=== PATIENT | female | born 1950 | race Caucasian/White ===

== ENCOUNTER 2017-08-06 18:47 | Inpatient (IN) | payer MEDICARE, OTHER, SELFPAY ==
[2017-08-06 18:48] VITALS: BP 159/94; PULSE 78; RESP 18; TEMP 37.2; O2SAT 93; BMI 43.4
--- NOTE | 2017-08-06 19:30 | CT_ITS ---
STUDY: CT ABDOMEN AND PELVIS WITH CONTRAST REASON FOR EXAM: Female, 67 years old. LEFT SIDE PAIN, RIGHT FLANK PAIN, BLOOD IN STOOL WITH NAUSEA SINCE MONDAY, HX BOWEL RESECTION DUE TO COLON CA-CHEMO 2015, GB RADIATION DOSAGE (If Supplied By Facility): CTDIvol = ( 16.73 ) mGy, DLP = ( 1234.84 ) mGycm TECHNIQUE: Transaxial images were obtained from the dome of the diaphragm to the symphysis pubis with oral contrast. 100ML ml of Isovue 300 contrast was administered. Sagittal and coronal images were reconstructed. Individualized dose optimization techniques were used for this CT. COMPARISON: October 06, 2016 FINDINGS: The visualized lung bases are unremarkable. The visualized portions of the heart are within normal limits. There is decreased attenuation of the liver consistent with steatosis. There are surgical clips in the gallbladder fossa consistent with a prior cholecystectomy. Normal spleen. There is diffuse atrophy of the pancreas. The liver is enlarged. This is consistent for Hepatomegaly. Liver is 24 cm in size. Normal bilateral adrenal glands. Normal right kidney. Normal left kidney. Normal visualized stomach. Normal small intestine. There is diverticulosis, with thickening of the colon wall, and pericolonic inflammation changes consistent with acute diverticulitis. The appendix is visualized and appears normal. Rectosigmoid colon anastomosis. There is diffuse atherosclerotic calcification of the abdominal aorta, without a demonstrated aneurysm. Normal inferior vena cava. Normal retroperitoneum. Normal urinary bladder. Normal visualized uterus. Presacral inflammatory changes. Rectal wall thickening consistent for proctitis. Large umbilical hernia containing fat and nonobstructed small bowel. There are diffuse degenerative changes of the visualized lumbar spine. CT/Abdomen/Pelvis WITH Contrast IMPRESSION: Acute diverticulitis of the descending colon and sigmoid colon. There is a proctitis. Fatty liver. Large umbilical hernia containing fat and nonobstructed small bowel. Electronically Signed: Ronald Dietz MD at 22:35 EDT , Service support ,
[2017-08-06] MEDS: 0.9% Normal Saline 1,000 ML 1000 ML IV (20:14)
[2017-08-06 20:26] LABS: Absolute Lymphocyte Count 1.17 X10^3/ul (0.83-4.51); Absolute Neutrophil Count 5.2 X10^3/uL (2.0-7.7); Basophil# 0.02 X10^3/uL; Basophil% 0.3 % (0-1); Eosinophil# 0.17 X10^3/uL; Eosinophils% 2.3 % (0-5); Hematocrit 41.5 % (37-47); Hemoglobin 13.5 g/dl (12.0-15.0); Lymphocyte # 1.17 X10^3/ul (4.0); Lymphocyte % 15.9 % (19-41); Mean Corp Hgb Conc 32.5 g/gl (32-36); Mean Corpuscular Volume 95.4 fL (81-99); Mean Platelet Vol. 9.2 fl (6.2-12.0); Monocyte% 10.8 % (0-10); Neutrophil % 70.4 % (47-70); POSITIVE COUNT NO; POSITIVE DIFFERENTIAL NO; POSITIVE MORPHOLOGY NO; Platelet Count 200 K/mm3 (150-450); RBC Distribution Width CV 13.4 % (11.6-14.6); RBC Distribution Width SD 46.8 fl (35.1-43.9); Red Blood Count 4.35 M/mm3 (4.2-5.4); White Blood Count 7.4 K/mm3 (4.4-11.0)
[2017-08-06 20:34] LABS: BUN 14 mg/dL (7-18); BUN/Creat Ratio 20.1 RATIO (10-20); Calcium,Total 8.7 mg/dL (8.5-10.1); Chloride 109 mmol/L (98-107); EST Glomerular Filtration Rate 89 mL/min (>60); Est Glom Filt Rate - Afr Amer 108 mL/min (>60); Estimated Creatinine Clearance 41.76 ml/min; Glucose 87 mg/dL (74-106); Potassium 3.6 mmol/L (3.5-5.1); Sodium Level 144 mmol/L (136-145)
[2017-08-06 20:35] LABS: Anion Gap 7 (5-15); Prothrombin Time (Protime)PT. 13.1 SECONDS (11.7-14.9)
[2017-08-06 20:43] LABS: Lactic Acid 1.4 mmol/L (0.4-2.0)
[2017-08-06 21:21] VITALS: BP 165/74; PULSE 78; RESP 16; O2SAT 100
--- NOTE | 2017-08-06 23:02 | ED.DCSUM_ITS ---
- ER Visit Summary Date of Service: 08/06/17 Chief Complaint: Flank pain History of Present Illness: The patient is a 67 F who presents with flank pain. She has a history of rectal cancer. She underwent surgical intervention as well as chemotherapy and radiation therapy 2 years ago. She recently had a follow-up with radiation oncology. She states that on she developed abdominal cramping and had one episode of nonbilious bloody emesis as well as one episode of diarrhea which was not bloody. However she began to develop sharp left-sided abdominal and flank pain last night. She had bright red blood per rectum last night and again today. She states that this was garfield blood by itself and not just with a bowel movement. Currently her pain is mild unless she is moving around at which point it becomes more severe. She denies any fever. She is not anticoagulated. She denies prior history of GI bleed. Physical Examination: Afebrile vitals are stable Moist mucous membranes Heart regular rate and rhythm Lungs are clear Abdomen soft she does have tenderness in the left lower quadrant and left abdomen. Rectal examination showed a scant amount of bright red blood Alert Test Results: CBC BMP unremarkable INR 1.0 [address]. Hem[address]cult positive. [address] of the abdomen and pelvis shows findings consistent with acute diverticulitis and proctitis. Emergency Department Course and Treatment: Initially declined any pain medications. She was given IV Zosyn. On reevaluation her pain is slightly increased and she will be given IV morphine. The patient will be admitted for IV antibiotics. Treatment Plan: [] Disposition: Admit Impression: Diverticulitis Proctitis This note was generated with [employer] dictation software. It may contain incorrect words, spelling, and punctuation that were not noted in review of the chart prior to signing ED Disposition - Plan for ED Patient: Chief Complaint: GI Bleed Referrals: Aleksandra Martin PA [Primary Care Provider] -
--- NOTE | 2017-08-06 23:03 | PCM.HP.STD ---
Problem List (1) Acute diverticulitis Status: Acute (2) Morbid obesity Status: Chronic (3) HTN (hypertension) Status: Chronic Qualifiers: Hypertension type: essential hypertension Qualified Code(s): I10 - Essential (primary) hypertension (4) HLD (hyperlipidemia) Status: Chronic Qualifiers: Hyperlipidemia type: unspecified Qualified Code(s): E78.5 - Hyperlipidemia, unspecified (5) Adenocarcinoma of rectum Status: Chronic History of Present Illness Date of Admission: 08/06/17 Chief Complaint: Abdominal pain, diarrhea The patient is a 67 y/o F w/ PMHx: Morbid Obesity, HTN, HLD, Hx Adenocarcinoma Rectum, Hx UTIs who presents to the [facility] ED on 08/06/17 with diffuse abdominal cramping, nausea with emesis x 1, diarrhea x 1 this past , started to feel improved but pain transitioned to left flank pain and LLQ pain w/ BRBPR x 2 episodes without associated stooling. In the ED work-up included T 99, heart rate 78, BP 159/94, respiratory rate 18, 100% on room air, CBC with WBC 7.4, hemoglobin 13.5, platelet 200 without market left shift, normal coags, BMP not market appearing, CT A/P w/ acute diverticulitis of the descending colon and sigmoid colon, proctitis, fatty liver, large umbilical hernia containing fat and nonobstructed small bowel. In the ED patient administered Zosyn, morphine, Zofran, normal saline. Past Medical History Past Medical History (Chronic Problems): Chronic Problems (Last Updated 05/11/17 @ 13:12 by Paulette Carlin) Morbid obesity (Chronic) HTN (hypertension) (Chronic) HLD (hyperlipidemia) (Chronic) Adenocarcinoma of rectum (Chronic) Allergies No Known Allergies Allergy (Verified 08/06/17 18:48) Home Medications: Ambulatory Orders Medication Instructions Recorded Losartan Potassium [Cozaar] 50 mg PO DAILY 05/11/17 Simvastatin [Zocor] 20 mg PO QHS 05/11/17 Surgical History: - - Colon resection, BLTL, Cholecystectomy. 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 Denies: Chills, Fever, Weight Change HEENT: Denies: Head Aches, Sinus Congestion, Sinus Drainage Cardiovascular: Denies: Chest Pain, Palpitations Respiratory: Denies: Cough, Shortness of breath at rest, Sputum production Gastrointestinal: Reports: Abdominal Pain, Diarrhea, Nausea, Vomiting Genitourinary: Denies: Dysuria Musculoskeletal: Denies: Joint Pain, Joint Tenderness Skin: Denies: Rash, Wounds Neurological: Denies: Numbness, Tingling, Focal weakness Psychiatric: Reports: Anxiety, Depression. Denies: Homicidal Ideations, Suicidal Ideations Hematologic/ Lymphatic: Denies: Easy Bruising, Easy Bleeding VTE Information - Inpt Only VTE Present on Admission: No VTE Mechan Device Prophylaxis: SCD's VTE Pharm Prophylaxis ordered?: No Reason prophylaxis not ordered:: Medical Contraindication Patient Problems: Active and Suspected Problems (Last Updated 05/11/17 @ 13:12 by Paulette Carlin) Acute diverticulitis (Acute) Subjective: Seated upright in the ED bed, uncomfortable with movement attempts. Objective: Physical Examination: General: awake, alert, oriented x 3 and cooperative, seated upright in the ED bed, uncomfortable, worse with movement attempts. Skin: normal color, turgor, no icterus, cyanosis. HEENT: AT/NC, EOMI, PERRLA, dry MM, no carotid bruits or JVD noted. Lungs: CTA bilaterally, moderate effort, mild decrease BL bases, no rales, ronchi or wheezing. Heart: Regular rate and rhythm; no gallop, rub audible. Abdomen: soft, morbidly obese, notable TTP, primarily L sided, ND, hypoactive BS, difficult to assess HSM given pain and habitus. Extremities: no cyanosis, clubbing, or edema. Neurological: patient awake, alert, oriented x 3; cognitive function intact; pupils equally reactive to light and accomodation; cranial nerves II-XII grossly normal, moving all 4 extremities, no focal deficits, strength severely globally decreased secondary to acute presentation. Psychiatric: affect appears fatigued, no acute evidence of depressive or anxiety feelings. - Physical Exam Vital Signs Temp Pulse Resp BP Pulse Ox 99.0 F 78 16 165/74 H 100 08/06/17 18:48 08/06/17 21:21 08/06/17 21:21 08/06/17 21:21 08/06/17 21:21 Oxygen Delivery Method Room Air Weight: 230 lb Body Mass Index (BMI) 43.4 Microbiology Past 72 Hours 08/06/17 20:00 Stool Occult Blood (CANDE) - Final Stool Occult Blood Positive Laboratory Tests Past 24 Hrs 08/06/17 08/06/17 08/06/17 20:00 20:00 20:00 WBC 7.4 RBC 4.35 Hgb 13.5 Hct 41.5 MCV 95.4 MCH 31.0 MCHC 32.5 RDW 13.4 RDW Differential 46.8 H Plt Count 200 MPV 9.2 Immature Gran % (Auto) 0.300 Neut % (Auto) 70.4 H Lymph % (Auto) 15.9 L [place] % (Auto) 10.8 H Eos % (Auto) 2.3 Baso % (Auto) 0.3 Absolute Neuts (auto) 5.2 Absolute Lymphs (auto) 1.17 Total Counted Not Reportable PT INR Sodium 144 Potassium 3.6 Chloride 109 H Carbon Dioxide 28.0 Anion Gap 7 BUN 14 Creatinine 0.70 Estim Creat Clear Calc 41.76 Est GFR (MDRD) Af Amer 108 Est GFR (MDRD) Non-Af 89 BUN/Creatinine Ratio 20.1 H Glucose 87 Lactic Acid 1.4 Calcium 8.7 Blood Type Antibody Screen 08/06/17 08/06/17 20:00 20:00 WBC RBC Hgb Hct MCV MCH MCHC RDW RDW Differential Plt Count MPV Immature Gran % (Auto) Neut % (Auto) Lymph % (Auto) [place] % (Auto) Eos % (Auto) Baso % (Auto) Absolute Neuts (auto) Absolute Lymphs (auto) Total Counted PT 13.1 INR 1.0 Sodium Potassium Chloride Carbon Dioxide Anion Gap BUN Creatinine Estim Creat Clear Calc Est GFR (MDRD) Af Amer Est GFR (MDRD) Non-Af BUN/Creatinine Ratio Glucose Lactic Acid Calcium Blood Type A POSITIVE Antibody Screen NEGATIVE Assessment/Plan Active and Suspected Problems (Last Updated 05/11/17 @ 13:12 by Paulette Carlin) Acute diverticulitis (Acute) The patient is a 67 y/o F w/ PMHx: Morbid Obesity, HTN, HLD, Hx Adenocarcinoma Rectum, Hx UTIs who presents to the [facility] ED on 08/06/17 with diffuse abdominal cramping, nausea with emesis x 1, diarrhea x 1 this past , started to feel improved but pain transitioned to left flank pain and LLQ pain w/ BRBPR x 2 episodes without associated stooling. (1) Acute Descending and Sigmoid Diverticulitis and Acute Proctitis w/ Rectal Bleeding Associated: CT A/P w/ evidence of acute diverticulitis of the descending and sigmoid colon. Admission CBC w/ WBC 7.4 w/o marked appearing L shift, Tmax 99 in the ED. Will admit to [facility], maintain on hydration, monitor I&Os, maintain NPO status w/ bowel rest, treat with zosyn regimen, famotidine, anti-emetics, pain regimen PRN. Consider diet advancement to clears in AM if clinically improved. Monitor Hgb given + guiac w/ acute diverticulitis and proctitis. (2) Hx Adenocarcinoma Rectum: Following w/ Dr. Long, s/p tumor resection, s/p chemotherapy and radiation ~ 2 years prior, follow-up with Rad/Onc this past week, stable. Notes upcoming visit this week, routine follow-up with Hem/Onc team. (3) Hypertension: Continue home regimen including losartan, PRN hydralazine. (4) Hyperlipidemia: Continue home statin regimen. (5) Morbid Obesity: Weight loss and lifestyle changes encouraged, nutrition consulted. (6) DVT Prophylaxis: SCDs, defer chemoprophylaxis given bleeding w/ acute diverticulitis presentation. Code Visit Inpatient E&M: 00989 Init Hosp L3
[2017-08-06] MEDS: Ondansetron 4 MG/2 ML Vial IV (23:07)
[2017-08-06] MEDS: Morphine 4 MG/ML Syringe IV (23:08)
[2017-08-06 23:14] VITALS: BP 154/82; PULSE 76; RESP 18; TEMP 36.7; O2SAT 94
[2017-08-06 23:15] VITALS: BP 154/82; PULSE 76; RESP 18; O2SAT 94
--- NOTE | 2017-08-06 23:17 | HP.PCM_ITS ---
Problem List (1) Acute diverticulitis Status: Acute (2) Morbid obesity Status: Chronic (3) HTN (hypertension) Status: Chronic Qualifiers: Hypertension type: essential hypertension Qualified Code(s): I10 - Essential (primary) hypertension (4) HLD (hyperlipidemia) Status: Chronic Qualifiers: Hyperlipidemia type: unspecified Qualified Code(s): E78.5 - Hyperlipidemia , unspecified (5) Adenocarcinoma of rectum Status: Chronic History of Present Illness Date of Admission: 08/06/17 Chief Complaint: Abdominal pain, diarrhea The patient is a 67 y/o F w/ PMHx: Morbid Obesity, HTN, HLD, Hx Adenocarcinoma Rectum, Hx UTIs who presents to the [facility] ED on 08/06/17 with diffuse abdominal cramping, nausea with emesis x 1, diarrhea x 1 this past , started to feel improved but pain transitioned to left flank pain and LLQ pain w/ BRBPR x 2 episodes without associated stooling. In the ED work-up included T 99, heart rate 78, BP 159/94, respiratory rate 18, 100% on room air, CBC with WBC 7.4, hemoglobin 13.5, platelet 200 without market left shift, normal coags, BMP not market appearing, CT A/P w/ acute diverticulitis of the descending colon and sigmoid colon, proctitis, fatty liver, large umbilical hernia containing fat and nonobstructed small bowel. In the ED patient administered Zosyn, morphine, Zofran, normal saline. Past Medical History Past Medical History (Chronic Problems): Chronic Problems (Last Updated 05/11/17 @ 13:12 by Paulette Carlin) Morbid obesity (Chronic) HTN (hypertension) (Chronic) HLD (hyperlipidemia) (Chronic) Adenocarcinoma of rectum (Chronic) Allergies No Known Allergies Allergy (Verified 08/06/17 18:48) Home Medications: Ambulatory Orders Medication Instructions Recorded Losartan Potassium [Cozaar] 50 mg PO DAILY 05/11/17 Simvastatin [Zocor] 20 mg PO QHS 05/11/17 Surgical History: - - Colon resection, BLTL, Cholecystectomy. Psychiatric History: No pertinent psych hx HEALTH SERVICES RN History: No pertinent HEALTH SERVICES RN history Lives: Spouse/ Significant Other Smoking Status: Never smoker Tobacco Use: Non-smoker Alcohol: Rare Drugs: None - *Family History Maternal History Items: Diabetes, Heart Disease, Stroke Paternal History Items: Stroke Review of Systems Constitutional: Reports: Anorexia, Malaise, Weakness, Fatigue. Denies: Chills, Fever, Weight Change HEENT: Denies: Head Aches, Sinus Congestion, Sinus Drainage Cardiovascular: Denies: Chest Pain, Palpitations Respiratory: Denies: Cough, Shortness of breath at rest, Sputum production Gastrointestinal: Reports: Abdominal Pain, Diarrhea, Nausea, Vomiting Genitourinary: Denies: Dysuria Musculoskeletal: Denies: Joint Pain, Joint Tenderness Skin: Denies: Rash, Wounds Neurological: Denies: Numbness, Tingling, Focal weakness Psychiatric: Reports: Anxiety, Depression. Denies: Homicidal Ideations, Suicidal Ideations Hematologic/ Lymphatic: Denies: Easy Bruising, Easy Bleeding VTE Information - Inpt Only VTE Present on Admission: No VTE Mechan Device Prophylaxis: SCD's VTE Pharm Prophylaxis ordered?: No Reason prophylaxis not ordered:: Medical Contraindication Patient Problems: Active and Suspected Problems (Last Updated 05/11/17 @ 13:12 by Paulette Carlin) Acute diverticulitis (Acute) Subjective: Seated upright in the ED bed, uncomfortable with movement attempts. Objective: Physical Examination: General: awake, alert, oriented x 3 and cooperative, seated upright in the ED bed, uncomfortable, worse with movement attempts. Skin: normal color, turgor, no icterus, cyanosis. HEENT: AT/NC, EOMI, PERRLA, dry MM, no carotid bruits or JVD noted. Lungs: CTA bilaterally, moderate effort, mild decrease BL bases, no rales, ronchi or wheezing. Heart: Regular rate and rhythm; no gallop, rub audible. Abdomen: soft, morbidly obese, notable TTP, primarily L sided, ND, hypoactive BS , difficult to assess HSM given pain and habitus. Extremities: no cyanosis, clubbing, or edema. Neurological: patient awake, alert, oriented x 3; cognitive function intact; pupils equally reactive to light and accomodation; cranial nerves II-XII grossly normal, moving all 4 extremities, no focal deficits, strength severely globally decreased secondary to acute presentation. Psychiatric: affect appears fatigued, no acute evidence of depressive or anxiety feelings. - Physical Exam Vital Signs Temp Pulse Resp BP Pulse Ox 99.0 F 78 16 165/74 H 100 08/06/17 18:48 08/06/17 21:21 08/06/17 21:21 08/06/17 21:21 08/06/17 21:21 Oxygen Delivery Method Room Air Weight: 230 lb Body Mass Index (BMI) 43.4 Microbiology Past 72 Hours 08/06/17 20:00 Stool Occult Blood (CANDE) - Final Stool Occult Blood Positive Laboratory Tests Past 24 Hrs 08/06/17 08/06/17 08/06/17 20:00 20:00 20:00 WBC 7.4 RBC 4.35 Hgb 13.5 Hct 41.5 MCV 95.4 MCH 31.0 MCHC 32.5 RDW 13.4 RDW Differential 46.8 H Plt Count 200 MPV 9.2 Immature Gran % (Auto) 0.300 Neut % (Auto) 70.4 H Lymph % (Auto) 15.9 L [place] % (Auto) 10.8 H Eos % (Auto) 2.3 Baso % (Auto) 0.3 Absolute Neuts (auto) 5.2 Absolute Lymphs (auto) 1.17 Total Counted Not Reportable PT INR Sodium 144 Potassium 3.6 Chloride 109 H Carbon Dioxide 28.0 Anion Gap 7 BUN 14 Creatinine 0.70 Estim Creat Clear Calc 41.76 Est GFR (MDRD) Af Amer 108 Est GFR (MDRD) Non-Af 89 BUN/Creatinine Ratio 20.1 H Glucose 87 Lactic Acid 1.4 Calcium 8.7 Blood Type Antibody Screen 08/06/17 08/06/17 20:00 20:00 WBC RBC Hgb Hct MCV MCH MCHC RDW RDW Differential Plt Count MPV Immature Gran % (Auto) Neut % (Auto) Lymph % (Auto) [place] % (Auto) Eos % (Auto) Baso % (Auto) Absolute Neuts (auto) Absolute Lymphs (auto) Total Counted PT 13.1 INR 1.0 Sodium Potassium Chloride Carbon Dioxide Anion Gap BUN Creatinine Estim Creat Clear Calc Est GFR (MDRD) Af Amer Est GFR (MDRD) Non-Af BUN/Creatinine Ratio Glucose Lactic Acid Calcium Blood Type A POSITIVE Antibody Screen NEGATIVE Assessment/Plan Active and Suspected Problems (Last Updated 05/11/17 @ 13:12 by Paulette Carlin) Acute diverticulitis (Acute) The patient is a 67 y/o F w/ PMHx: Morbid Obesity, HTN, HLD, Hx Adenocarcinoma Rectum, Hx UTIs who presents to the [facility] ED on 08/06/17 with diffuse abdominal cramping, nausea with emesis x 1, diarrhea x 1 this past , started to feel improved but pain transitioned to left flank pain and LLQ pain w/ BRBPR x 2 episodes without associated stooling. (1) Acute Descending and Sigmoid Diverticulitis and Acute Proctitis w/ Rectal Bleeding Associated: CT A/P w/ evidence of acute diverticulitis of the descending and sigmoid colon. Admission CBC w/ WBC 7.4 w/o marked appearing L shift, Tmax 99 in the ED. Will admit to MS, maintain on hydration, monitor I&Os , maintain NPO status w/ bowel rest, treat with zosyn regimen, famotidine, anti- emetics, pain regimen PRN. Consider diet advancement to clears in AM if clinically improved. Monitor Hgb given + guiac w/ acute diverticulitis and proctitis. (2) Hx Adenocarcinoma Rectum: Following w/ Dr. Long, s/p tumor resection, s/p chemotherapy and radiation ~ 2 years prior, follow-up with Rad/Onc this past week, stable. Notes upcoming visit this week, routine follow-up with Hem/Onc team. (3) Hypertension: Continue home regimen including losartan, PRN hydralazine. (4) Hyperlipidemia: Continue home statin regimen. (5) Morbid Obesity: Weight loss and lifestyle changes encouraged, nutrition consulted. (6) DVT Prophylaxis: SCDs, defer chemoprophylaxis given bleeding w/ acute diverticulitis presentation. Code Visit Inpatient E&M: 51457 Init Hosp L3
[2017-08-06 23:49] VITALS: BMI 44.4
[2017-08-07] VITALS (9 sets, daily range): BP systolic 103–133; BP diastolic 60–71; PULSE 68–89; RESP 16–18; TEMP 36.7–37.3; O2SAT 92–96
[2017-08-07] MEDS: Atorvastatin Calcium 10 MG Tablet PO ×2 (00:48→20:52)
[2017-08-07] MEDS: Losartan Potassium 50 MG Tablet PO ×2 (00:49→20:52)
[2017-08-07 01:26] LABS: Magnesium 2.2 mg/dL (1.6-2.6)
[2017-08-07] MEDS: 0.9% Normal Saline 1,000 ML 125 ML IV ×3 (01:46→17:37)
[2017-08-07] MEDS: Morphine 2 MG/ML Syringe IV (05:53)
[2017-08-07] MEDS: Piperacil/Tazobactam 3.375 GM/50 ML ML IV ×3 (05:53→20:52)
[2017-08-07 06:09] LABS: Absolute Lymphocyte Count 0.92 X10^3/ul (0.83-4.51); Basophil# 0.03 X10^3/uL; Basophil% 0.4 % (0-1); Eosinophil# 0.15 X10^3/uL; Eosinophils% 1.9 % (0-5); Hematocrit 38.5 % (37-47); Hemoglobin 12.5 g/dl (12.0-15.0); Lymphocyte # 0.92 X10^3/ul (4.0); Lymphocyte % 11.8 % (19-41); Mean Corp Hgb Conc 32.5 g/gl (32-36); Mean Corpuscular Hgb 31.3 pg (27.0-32.0); Mean Corpuscular Volume 96.5 fL (81-99); Mean Platelet Vol. 9.3 fl (6.2-12.0); Monocyte# 0.73 X10^3/uL; Monocyte% 9.3 % (0-10); Neutrophil # 5.98 X10^3/uL (2.7-7.7); Neutrophil % 76.5 % (47-70); Platelet Count 187 K/mm3 (150-450); RBC Distribution Width CV 13.6 % (11.6-14.6); RBC Distribution Width SD 47.2 fl (35.1-43.9); Red Blood Count 3.99 M/mm3 (4.2-5.4); White Blood Count 7.8 K/mm3 (4.4-11.0)
[2017-08-07 06:28] LABS: Anion Gap 8 (5-15); BUN 12 mg/dL (7-18); Chloride 111 mmol/L (98-107); Creatinine, Serum 0.75 mg/dL (0.55-1.02); EST Glomerular Filtration Rate 82 mL/min (>60); Est Glom Filt Rate - Afr Amer 100 mL/min (>60); Estimated Creatinine Clearance 41.76 ml/min; Glucose 90 mg/dL (74-106); Potassium 3.8 mmol/L (3.5-5.1); Sodium Level 145 mmol/L (136-145)
[2017-08-07 06:32] LABS: POSITIVE COUNT NO; POSITIVE DIFFERENTIAL NO; POSITIVE MORPHOLOGY NO
[2017-08-07] MEDS: Famotidine 20 MG Tablet PO ×2 (09:45→20:50)
--- NOTE | 2017-08-07 10:03 | PCM.PROGNOTE ---
<Meg Cassidy - Last Filed: 08/07/17 10:16> Patient Problems: Active and Suspected Problems (Last Updated 05/11/17 @ 13:12 by Paulette Carlin) Acute diverticulitis (Acute) Subjective: Patient seen and examined. Complains of generalized abdominal pain which she states is improved after receiving morphine earlier. She denies fever, chills. Complains of nausea associated with abdominal pain. Denies emesis. No bowel movement. States she has not had a normal bowel movement since . She states she has had a few small episodes of diarrhea. Denies other complaints. - Physical Exam General: Alert, Oriented x3, Cooperative, No apparent distress HEENT: Atraumatic, PERRLA, EOMI, Normocephalic Oral: Dry Mucosa Neck: Supple, No JVD, Negative Carotid Bruits Lungs: Clear to auscultation, Normal air movement Cardiovascular: Regular rate, Regular Rhythm, Normal S1, Normal S2, No murmurs Abdomen: Bowel Sounds Present, Soft, Non-Distended, Obese, Tender - Generalized tenderness to light palpation Extremities: No clubbing, No cyanosis, No edema, Capillary Refill Less than 3 Seconds Skin: No rashes Musculoskeletal: No Tenderness to Palpation of Joints or Extremities Neurological: Cranial nerves II-XII grossly intact, Neuro grossly intact Psych/Mental Status: Normal Affect, Appropriate Vital Signs Temp Pulse Resp BP Pulse Ox 99.1 F 89 16 103/60 92 08/07/17 05:45 08/07/17 05:58 08/07/17 05:45 08/07/17 05:45 08/07/17 07:35 Oxygen Delivery Method Room Air Weight: 106.7 kg Body Mass Index (BMI) 44.4 Intake and Output for Last 24 Hours 08/05/17 08/06/17 08/07/17 23:59 23:59 23:59 Intake Total 842 / 842 Output Total 600 / 600 Balance 242 / 242 Laboratory Tests Past 24 Hrs 08/07/17 08/07/17 05:06 05:06 WBC 7.8 RBC 3.99 L Hgb 12.5 Hct 38.5 MCV 96.5 MCH 31.3 MCHC 32.5 RDW 13.6 RDW Differential 47.2 H Plt Count 187 MPV 9.3 Immature Gran % (Auto) 0.100 Neut % (Auto) 76.5 H Lymph % (Auto) 11.8 L [place] % (Auto) 9.3 Eos % (Auto) 1.9 Baso % (Auto) 0.4 Absolute Neuts (auto) 6.0 Absolute Lymphs (auto) 0.92 Total Counted Not Reportable Sodium 145 Potassium 3.8 Chloride 111 H Carbon Dioxide 26.0 Anion Gap 8 BUN 12 Creatinine 0.75 Estim Creat Clear Calc 41.76 Est GFR (MDRD) Af Amer 100 Est GFR (MDRD) Non-Af 82 BUN/Creatinine Ratio 16.0 Glucose 90 Calcium 8.0 L Medical Necessity - Tobacco Use Smoking Status: Never smoker Tobacco Use: Non-smoker Assessment/Plan Active and Suspected Problems (Last Updated 05/11/17 @ 13:12 by Paulette Carlin) Acute diverticulitis (Acute) Patient is a 67-year-old female admitted 08/06/17 due to abdominal pain, diarrhea. She has a past medical history of morbid obesity, hypertension, hyperlipidemia, history of adenocarcinoma rectum, history of UTIs. 1. Acute descending and sigmoid diverticulitis with associated rectal bleeding-CT of abdomen showed acute diverticulitis of the descending colon and sigmoid colon and proctitis. Fatty liver. Large umbilical hernia containing fat and nonobstructive small bowel. No leukocytosis. T-max 99.1. Continue IV fluids. Advance to clear liquids as tolerated. Continue IV Zosyn, IV famotidine. As needed antiemetics and pain regimen. Stool positive for occult blood. Hemoglobin stable. Patient denies further blood per rectum. 2. Hypertension-stable, continue home losartan regimen. 3. Hyperlipidemia-continue statin. 4. Morbid obesity-encouraged diet and lifestyle modifications. 5. Hx of adenocarcinoma rectum- Follows with Dr. Long. Status post tumor resection, chemotherapy and radiation approximately 2 years ago. Continue outpatient follow-up. Patient has a routine follow-up this week. DVT prophylaxis-SCDs, pharmacologic prophylaxis on hold given positive stool for occult blood. This patient was seen by MIRACLE Lomas under the supervision of Dr. Weathers. <Darrius Weathers - Last Filed: 08/07/17 13:49> - Physical Exam Vital Signs Temp Pulse Resp BP Pulse Ox 98.0 F 72 16 114/66 94 08/07/17 12:08/07/17 12:01 08/07/17 12:01 08/07/17 12:01 08/07/17 12:01 Oxygen Delivery Method Room Air Weight: 235 lb 3.732 oz Body Mass Index (BMI) 44.4 Intake and Output for Last 24 Hours 08/05/17 08/06/17 08/07/17 23:59 23:59 23:59 Intake Total 1511 / 1511 Output Total 600 / 600 Balance 911 / 911 Laboratory Tests Past 24 Hrs 08/07/17 08/07/17 05:06 05:06 WBC 7.8 RBC 3.99 L Hgb 12.5 Hct 38.5 MCV 96.5 MCH 31.3 MCHC 32.5 RDW 13.6 RDW Differential 47.2 H Plt Count 187 MPV 9.3 Immature Gran % (Auto) 0.100 Neut % (Auto) 76.5 H Lymph % (Auto) 11.8 L [place] % (Auto) 9.3 Eos % (Auto) 1.9 Baso % (Auto) 0.4 Absolute Neuts (auto) 6.0 Absolute Lymphs (auto) 0.92 Total Counted Not Reportable Sodium 145 Potassium 3.8 Chloride 111 H Carbon Dioxide 26.0 Anion Gap 8 BUN 12 Creatinine 0.75 Estim Creat Clear Calc 41.76 Est GFR (MDRD) Af Amer 100 Est GFR (MDRD) Non-Af 82 BUN/Creatinine Ratio 16.0 Glucose 90 Calcium 8.0 L Assessment/Plan Hospitalist note: I am seeing this patient in conjunction with Meg Cassidy. I independently seen and examined the patient. Progress note above, laboratory data and imaging studies reviewed and I agree with above treatment plan. Patient seen and examined. She reported improvement of her left-sided abdominal pain is almost gone. At this time, no more nausea vomiting. Denied fever or chills. Her vital signs are stable. - Physical Exam General: Alert, Oriented x3, Cooperative, No apparent distress. HEENT: Atraumatic, PERRLA, EOMI. Neck: Supple, No JVD, Negative Carotid Bruits, Trachea Midline, Thyroid Normal. Lungs: Clear to auscultation, Normal air movement, No rhonchi, No wheeze, No rales. Cardiovascular: Regular rate, Regular Rhythm, Normal S1, Normal S2, PMI Normal. Abdomen: Minimal left lower quadrant tenderness on deep palpation, bowel Sounds Present, Non-Distended, No Hepato-splenomegaly. Extremities: No clubbing, No cyanosis, No edema Skin: No rashes, No breakdown Neurological: Neuro grossly intact Vital Signs are stable. Assessment and plan: #1 acute sigmoid and descending colon diverticulitis: She is on IV Zosyn, IV fluids, IV morphine. Her vital signs are stable. She reported slight improvement of her symptoms. CT abdomen and pelvis reviewed. Plan to continue same treatment as above. #2 history of colon cancer: Status post surgery, was on chemotherapy and radiation. She has been stable, she is following up with oncology as outpatient. #3 other chronic medical problems: Stable, continue current medications as above. This note was generated with [employer] dictation software. It may contain incorrect words, spelling, and punctuation that were not noted in checking the note before signing. Code Visit Inpatient E&M: 40500 Subs Hosp L2
--- NOTE | 2017-08-07 10:57 | CASEMGMT ---
RN MICHELLE Face to Face with patient for initial transition planning/care coordination assessment. RN CM introduced self and role at [facility]. Patient lying in bed, alert and oriented. Patient willing to participate in assessment and is able to answer all questions appropriately. Care providers, pharmacy, and demographics verified. See link attached. Patient wishes to discharge home, denies need for home health at this time. Patient states she has no further needs or concerns at this time. CM to follow for discharge planning needs that may arise. Disposition Plan: Patient to discharge home with family support and follow-up plans in place.
[2017-08-07] MEDS: Temazepam 15 MG Capsule PO (20:53)
[2017-08-08] MEDS: 0.9% Normal Saline 1,000 ML 125 ML IV ×2 (01:28→10:16)
[2017-08-08 02:45] VITALS: BP 139/83; PULSE 72; RESP 18; TEMP 37.4; O2SAT 93
[2017-08-08] MEDS: Piperacil/Tazobactam 3.375 GM/50 ML ML IV (06:00)
[2017-08-08 06:25] LABS: Hematocrit 37.1 % (37-47); Hemoglobin 11.8 g/dl (12.0-15.0); Mean Corp Hgb Conc 31.8 g/gl (32-36); Mean Corpuscular Hgb 30.7 pg (27.0-32.0); Mean Corpuscular Volume 96.6 fL (81-99); Platelet Count 183 K/mm3 (150-450); RBC Distribution Width CV 13.6 % (11.6-14.6); RBC Distribution Width SD 48.2 fl (35.1-43.9); Red Blood Count 3.84 M/mm3 (4.2-5.4); White Blood Count 5.9 K/mm3 (4.4-11.0)
[2017-08-08 06:27] LABS: Scan Indicated on CBC? Y/N NO
[2017-08-08 07:53] VITALS: O2SAT 93
[2017-08-08 08:49] VITALS: BP 147/83; PULSE 73; RESP 18; TEMP 37.1; O2SAT 96
[2017-08-08] MEDS: Famotidine 20 MG Tablet PO (08:51)
--- NOTE | 2017-08-08 11:57 | PCM.DC ---
- Discharge Diagnoses Current Active Problems: Current Active and Chronic Problems (Last Updated 05/11/17 @ 13:12 by Paulette Carlin) Acute diverticulitis (Acute) Morbid obesity (Chronic) HTN (hypertension) (Chronic) HLD (hyperlipidemia) (Chronic) You will use the following diet at home:: Other - Low gastric stimulus Discharge Activity: Return to Normal Activity Call your doctor if you observe: Fever of 101 or Higher, Inability to have a bowel movement, Shortness of breath, Dizziness, Fainting spells, Swelling in the ankles Allergies/Adverse Reactions: Allergies No Known Allergies Allergy (Verified 08/06/17 18:48) Medications to take at Discharge Losartan Potassium [Cozaar] 50 mg PO QHS 05/11/17 Simvastatin [Zocor] 20 mg PO QHS 05/11/17 Ciprofloxacin [Cipro] 500 mg PO BID #14 tab 08/08/17 Metronidazole [Flagyl] 500 mg PO Q6H #28 tab 08/08/17 The following prescriptions were given: Ciprofloxacin [Cipro] 500 mg PO BID #14 tab Metronidazole [Flagyl] 500 mg PO Q6H #28 tab Primary Care Physician: Aleksandra Martin PA [Primary Care Provider] - Please follow up with your Primary Care Physician in: 3-5 Days Please Follow Up With: Nasir Long MD When: As scheduled this week Proposed Discharge Date: 08/08/17
--- NOTE | 2017-08-08 12:05 | DS.PCM_ITS ---
<Meg Cassidy - Last Filed: 08/08/17 12:05> Discharge Date and Diagnosis Date of Admission: 08/06/17 Date of Discharge: 08/08/17 - Primary Discharge Diagnosis Active and Suspected Problems (Last Updated 05/11/17 @ 13:12 by Paulette Carlin) 1. Acute descending and sigmoid diverticulitis - Secondary Discharge Diagnosis Chronic Problems (Last Updated 05/11/17 @ 13:12 by Paulette Carlin) Morbid obesity (Chronic) HTN (hypertension) (Chronic) HLD (hyperlipidemia) (Chronic) Adenocarcinoma of rectum (Chronic) Hospital Course and Treatment Imaging Results: Diagnostic Data Abdomen/Pelvis CT 08/06/17 19:30 IMPRESSION: Acute diverticulitis of the descending colon and sigmoid colon. There is a proctitis. Fatty liver. Large umbilical hernia containing fat and nonobstructed small bowel. Electronically Signed: Ronald Dietz MD at 22:35 EDT , Service support , Operations: None Procedures: None Summary of Care Provided: Patient is a 67-year-old female admitted 08/06/17 due to abdominal pain, diarrhea. She has a past medical history of morbid obesity, hypertension, hyperlipidemia, history of adenocarcinoma rectum, history of UTIs. 1. Acute descending and sigmoid diverticulitis with associated rectal bleeding- CT of abdomen showed acute diverticulitis of the descending colon and sigmoid colon and proctitis. Fatty liver. Large umbilical hernia containing fat and nonobstructive small bowel. No leukocytosis. Stool positive for occult blood. Hemoglobin stable. Patient denies further blood per rectum. Patient received IV Zosyn. She will be discharged on oral regimen of Flagyl and Cipro for 7 more days of oral antibiotic therapy. She will follow-up with primary care physician in 3-5 days. Recommend referral to gastroenterology by primary care physician if patient has further episodes of diverticulitis or rectal bleeding. 2. Hypertension-stable, continue home losartan regimen. 3. Hyperlipidemia-continue statin. 4. Morbid obesity-encouraged diet and lifestyle modifications. 5. Hx of adenocarcinoma rectum- Follows with Dr. Long. Status post tumor resection, chemotherapy and radiation approximately 2 years ago. Continue outpatient follow-up. Patient has a routine follow-up this week. General: Alert, Oriented x3, Cooperative, No apparent distress HEENT: Atraumatic, PERRLA, EOMI, Normocephalic Oral: Dry Mucosa Neck: Supple, No JVD, Negative Carotid Bruits Lungs: Clear to auscultation, Normal air movement Cardiovascular: Regular rate, Regular Rhythm, Normal S1, Normal S2, No murmurs Abdomen: Bowel Sounds Present, Soft, Non-Distended, Obese, Tender - Generalized tenderness to light palpation Extremities: No clubbing, No cyanosis, No edema, Capillary Refill Less than 3 Seconds Skin: No rashes Musculoskeletal: No Tenderness to Palpation of Joints or Extremities Neurological: Cranial nerves II-XII grossly intact, Neuro grossly intact Psych/Mental Status: Normal Affect, Appropriate Patient seen and examined prior to discharge. Physical assessment as noted above. Patient stable for discharge home with the follow-up recommendations as noted above. This patient was seen by MIRACLE Lomas under the supervision of Dr. Weathers. Discharge Diet: - - Low gastric stimulus Discharge Activity: Return to Normal Activity Call your doctor if you observe: Fever of 101 or Higher, Inability to have a bowel movement, Shortness of breath, Dizziness, Fainting spells, Swelling in the ankles Home Medications: Medications to take at Discharge Losartan Potassium [Cozaar] 50 mg PO QHS 05/11/17 Simvastatin [Zocor] 20 mg PO QHS 05/11/17 Ciprofloxacin [Cipro] 500 mg PO BID #14 tab 08/08/17 Metronidazole [Flagyl] 500 mg PO Q6H #28 tab 08/08/17 Ondansetron HCl [Zofran] 4 mg PO Q6H PRN PRN #20 tab 08/08/17 Following Prescrptions Were Given to Patient: Ondansetron HCl [Zofran] 4 mg PO Q6H PRN PRN #20 tab PRN Reason: Nausea Ciprofloxacin [Cipro] 500 mg PO BID #14 tab Metronidazole [Flagyl] 500 mg PO Q6H #28 tab Primary Care Physician: Aleksandra Martin PA [Primary Care Provider] - Please follow up with your Primary Care Physician in: 3-5 Days Please Follow Up With: Nasir Long MD When: As scheduled this week Disposition: Home Minutes spent on discharge:: 35 Patient Condition:: Stable Medical Necessity - Tobacco Use Smoking Status: Never smoker Tobacco Use: Non-smoker Meaningful Use Info Meaningful Use Diagnoses (Choose all that apply): None applicable <Darruis Weathers E - Last Filed: 08/09/17 14:37> Discharge Date and Diagnosis - Secondary Discharge Diagnosis Chronic Problems (Last Updated 05/11/17 @ 13:12 by Paulette Carlin) Morbid obesity (Chronic) HTN (hypertension) (Chronic) HLD (hyperlipidemia) (Chronic) Adenocarcinoma of rectum (Chronic) Hospital Course and Treatment Summary of Care Provided: Hospitalist note: Discharge summary above reviewed as well as physical examination and I agree with the above discharge plan. She was admitted because of left lower quadrant abdominal pain, found to have acute diverticulitis of the descending and sigmoid colon as well as proctitis. She was seen and examined on the day of discharge and appeared to be stable to be discharged home. She was treated with IV Zosyn, IV fluids, IV pain medications and antiemetics. With treatment, her abdominal pain improved and she tolerated clear liquid diet that was advanced to full liquid diet and she did well with it. She has history of colon cancer, adenocarcinoma and she has been following up with . She had surgery for cancer as well as chemotherapy and radiation to use ago. She has been following up with oncology as outpatient. Her routine blood work was unremarkable. Her vital signs remained stable throughout admission. Lactic acid was normal. Patient discharged home in a stable medical condition, discharged on ciprofloxacin and Flagyl to complete 14 days of treatment, recommended follow-up with PCP in 1 and follow-up with oncology as scheduled. . Minutes spent on discharge:: 26 Code Visit Inpatient E&M: 49683 Disch Hosp
[2017-08-08 14:16] VITALS: BP 142/68; PULSE 77; RESP 18; TEMP 37.3; O2SAT 93
--- NOTE | 2017-08-11 15:53 | CASEMGMT ---
PIPER MARTINEZ Discharge Follow-up Phone Call: ROGELIOJoe: Razia Strata: 3 Call Date: 08/11/17 Discharge Date: 08/08/17 Time of Call: [id number] Duration: 5 min Admitting Diagnosis: Acute Diverticulitis, Acute Proctitis Patient states the she is still having nausea and diarrhea. Patient was seen by her PCP today. Patient had no questions regarding discharge instructions or medications. Patient was able to fill prescriptions with no problems. No follow-up appts were scheduled prior to discharge.
== END 2017-08-08 15:37 | disposition home or self-care (01) | DRG 378 ==
LOC: ED 19:18 → MS3 23:32
PROVIDERS: Nurse Practitioner Family; Admitting Provider Family Medicine; Emergency Provider Emergency Medicine; Family Provider Physician Assistant; PCP Physician Assistant; Visit Provider Hospitalist
DX: K57.33 Diverticulitis of large intestine without perforation or abscess with bleeding (principal); Z68.41 Body mass index [BMI] 40.0-44.9, adult; E66.01 Morbid (severe) obesity due to excess calories; Z71.3 Dietary counseling and surveillance; I10 Essential (primary) hypertension; E78.5 Hyperlipidemia, unspecified; Z92.21 Personal history of antineoplastic chemotherapy; Z92.3 Personal history of irradiation; K62.89 Other specified diseases of anus and rectum; K42.9 Umbilical hernia without obstruction or gangrene; K76.0 Fatty (change of) liver, not elsewhere classified; Z85.048 Personal history of other malignant neoplasm of rectum, rectosigmoid junction, and anus
CPT/HCPCS: 36415; 74177; 80048; 82274; 83605; 83735; 85025; 85027; 85610; 86850; 86900; 97802; 99282; J7030; J7050; Q9967; A4216; J2405

== ENCOUNTER → 2017-08-17 10:52 | Outpatient (CLI) | payer MEDICARE, OTHER, SELFPAY ==
--- NOTE | 2017-08-17 11:13 | MRI_ITS ---
STUDY: MRI ABDOMEN WITH AND WITHOUT CONTRAST REASON FOR EXAM: Female, 67 years old. Hepatomegaly, abn labs, rectum ca- chemo and rad tx ended 2 yrs ago TECHNIQUE: Standardized fat and water weighted pulse sequences were obtained in all 3 orthogonal planes post contrast administration. 10 ml of Gadavist contrast material was administered intravenously for the contrast portion of the examination. COMPARISON: CT Abdomen/Pelvis Aug 06 2017 9:41pm FINDINGS: The visualized lung bases are unremarkable. The visualized portions of the heart are within normal limits. There is hepatomegaly with diffuse hepatic enlargement. There are surgical clips in the gallbladder fossa consistent with a prior cholecystectomy. Normal spleen. Normal pancreas. There is diffuse fatty infiltration of the liver. Normal bilateral adrenal glands. Normal right kidney. Normal left kidney. Normal visualized stomach. Normal small intestine. There are multiple colonic diverticula consistent with diverticulosis. There is non-visualization of the appendix. Stool throughout the colon. There is diffuse atherosclerotic calcification of the abdominal aorta, without a demonstrated aneurysm. Normal inferior vena cava. Normal retroperitoneum. There is a large ventral hernia containing fat. There are diffuse degenerative changes of the visualized lumbar spine. MRI/MRI Abd WITH and W/O Contrast IMPRESSION: Fatty liver and hepatomegaly There are multiple colonic diverticula consistent with diverticulosis. Constipation. There is a large ventral hernia containing fat. Electronically Signed: Ronald Dietz MD at 23:33 EDT , Service support ,
== END ==
PROVIDERS: Family Provider Physician Assistant; PCP Physician Assistant; Visit Provider Nurse Practitioner Family
DX: R16.0 Hepatomegaly, not elsewhere classified (principal); R79.89 Other specified abnormal findings of blood chemistry; C20 Malignant neoplasm of rectum
CPT/HCPCS: 74183; A9585

== ENCOUNTER 2018-01-01 20:21 | Observation (INO) | payer MEDICARE, OTHER, SELFPAY ==
[2018-01-01 20:25] VITALS: BP 137/76; PULSE 78; RESP 25; TEMP 36.9; O2SAT 96; BMI 43.7
--- NOTE | 2018-01-01 20:50 | EKG12_ITS ---
Test Reason : Blood Pressure : / mmHG Vent. Rate : 073 BPM Atrial Rate : 073 BPM P-R Int : 148 ms QRS Dur : 082 ms QT Int : 406 ms P-R-T Axes : 027 -23 030 degrees QTc Int : 447 ms Sinus rhythm with occasional Premature ventricular complexes Low voltage QRS Inferior infarct , age undetermined Abnormal ECG Confirmed by HECTOR TRAN, GABRIELLA ([id number]), continuity editor GILMA ROBERTO ([id number]) on 01/03/2018 1:49:51 PM Referred By: Davi Benz Confirmed By:GABRIELLA YOUNG MD
[2018-01-01] MEDS: 0.9% Normal Saline 1,000 ML 1000 ML IV (21:13)
[2018-01-01 21:21] VITALS: BP 148/92; PULSE 82; RESP 16; O2SAT 99
[2018-01-01 21:21] LABS: Absolute Lymphocyte Count 0.89 X10^3/ul (0.83-4.51); Absolute Neutrophil Count 5.3 X10^3/uL (2.0-7.7); Basophil# 0.02 X10^3/uL; Basophil% 0.3 % (0-1); Eosinophil# 0.11 X10^3/uL; Eosinophils% 1.6 % (0-5); Hematocrit 43.1 % (37-47); Hemoglobin 14.2 g/dl (12.0-15.0); Lymphocyte # 0.89 X10^3/ul (4.0); Lymphocyte % 12.7 % (19-41); Mean Corp Hgb Conc 32.9 g/gl (32-36); Mean Corpuscular Hgb 30.5 pg (27.0-32.0); Mean Corpuscular Volume 92.7 fL (81-99); Mean Platelet Vol. 9.1 fl (6.2-12.0); Monocyte# 0.71 X10^3/uL; Monocyte% 10.1 % (0-10); Neutrophil # 5.29 X10^3/uL (2.7-7.7); Neutrophil % 75.2 % (47-70); Platelet Count 176 K/mm3 (150-450); RBC Distribution Width CV 13.6 % (11.6-14.6); RBC Distribution Width SD 45.7 fl (35.1-43.9); Red Blood Count 4.65 M/mm3 (4.2-5.4)
[2018-01-01 21:23] LABS: POSITIVE COUNT NO; POSITIVE DIFFERENTIAL NO; POSITIVE MORPHOLOGY NO
[2018-01-01 21:29] VITALS: BP 140/74; BP 148/92; BP 158/84; PULSE 67; PULSE 72; PULSE 82
--- NOTE | 2018-01-01 21:31 | ED.RN ---
NO OLD EKG
[2018-01-01 21:36] LABS: Anion Gap 12 (5-15); BUN 25 mg/dL (7-18); BUN/Creat Ratio 23.1 RATIO (10-20); Calcium,Total 9.3 mg/dL (8.5-10.1); Chloride 105 mmol/L (98-107); Creatinine, Serum 1.08 mg/dL (0.55-1.02); EST Glomerular Filtration Rate 54 mL/min (>60); Est Glom Filt Rate - Afr Amer 65 mL/min (>60); Estimated Creatinine Clearance 40.53 ml/min; Glucose 111 mg/dL (74-106); Sodium Level 145 mmol/L (136-145)
--- NOTE | 2018-01-01 22:04 | PCM.HP.STD ---
Problem List (1) Syncope Status: Acute Qualifiers: Syncope type: unspecified Qualified Code(s): R55 - Syncope and collapse (2) History of rectal cancer Status: Chronic (3) HTN (hypertension) Status: Chronic Qualifiers: (4) HLD (hyperlipidemia) Status: Chronic Qualifiers: (5) Diarrhea Status: Chronic Qualifiers: History of Present Illness Date of Admission: 01/01/18 Chief Complaint: syncope The patient is a 67 year old female patient present to the hospital by squad with a chief complaint of passing out. She had been feeling dizzy earlier in the day. [place] and her grandson was about to show their dairy heifer. She sat down on a stump and then passed out. She was caught by someone on her way down from seated position so she did not have any trauma. There was no seizure activity. She admits to not having eaten earlier today and has had diarrhea for the past few days for which she took an Imodium earlier today. She denies chest pain or shortness of breath. No previous syncopal episodes and no reported cardiac history. She is 3 years post rectal carcinoma diagnosis and treatment. Past Medical History Past Medical History (Chronic Problems): Chronic Problems (Last Reviewed 08/21/17 @ 14:32 by Paulette Carlin) History of rectal cancer (Chronic) Morbid obesity (Chronic) HTN (hypertension) (Chronic) HLD (hyperlipidemia) (Chronic) Diarrhea (Chronic) Medical History: Medical History (Last Reviewed 08/21/17 @ 14:32 by Paulette Carlin) Chronic UTI N39.0 Hyperlipidemia E78.5 Hypertension I10 Allergies lisinopril Adverse Reaction (Verified 01/01/18 20:25) Other COUGH Home Medications: Ambulatory Orders Medication Instructions Recorded Losartan Potassium [Cozaar] 50 mg PO QHS 05/11/17 Simvastatin [Zocor] 20 mg PO QHS 05/11/17 Surgical History: Surgical History (Last Reviewed 08/21/17 @ 14:32 by Paulette Carlin) History of colon resection Z98.890, Z90.49 History of tubal ligation Z98.51 Hx of cholecystectomy Z98.890, Z90.49 Surgical History: - - Colon resection, BLTL, Cholecystectomy. Psychiatric History: No pertinent psych hx ADMISSIONS CONSULTANT History: No pertinent ADMISSIONS CONSULTANT history Smoking Status: Never smoker - *Family History Maternal Family History: Family History (Last Reviewed 08/21/17 @ 14:32 by Paulette Carlin) Mother Skin cancer Heart disease Diabetes CVA (cerebral vascular accident) Father CVA (cerebral vascular accident) History Items: Diabetes, Heart Disease, Stroke Paternal Family History: Family History (Last Reviewed 08/21/17 @ 14:32 by Paulette Carlin) Mother Skin cancer Heart disease Diabetes CVA (cerebral vascular accident) Father CVA (cerebral vascular accident) History Items: Stroke Review of Systems Constitutional: Denies: Chills, Fever, Weight Change HEENT: Denies: Head Aches, Sinus Congestion, Sinus Drainage Cardiovascular: Reports: Light Headedness, Syncope. Denies: Chest Pain, Palpitations Respiratory: Denies: Cough, Shortness of breath at rest, Sputum production Gastrointestinal: Reports: Diarrhea. Denies: Abdominal Pain, Nausea, Vomiting Genitourinary: Denies: Dysuria Musculoskeletal: Denies: Joint Pain, Joint Tenderness Skin: Denies: Rash, Wounds Neurological: Denies: Numbness, Tingling, Focal weakness Psychiatric: Denies: Anxiety, Depression, Homicidal Ideations, Suicidal Ideations Hematologic/ Lymphatic: Denies: Easy Bruising, Easy Bleeding VTE Information - Inpt Only VTE Present on Admission: No VTE Mechan Device Prophylaxis: None VTE Pharm Prophylaxis ordered?: Yes Patient Problems: Active and Suspected Problems (Last Reviewed 08/21/17 @ 14:32 by Paulette Carlin) Syncope (Acute) - Physical Exam General: Alert, Oriented x3, Cooperative HEENT: Atraumatic, Normocephalic Neck: Supple, Negative Carotid Bruits Lungs: Clear to auscultation, Normal air movement, No rhonchi, No wheeze, No rales Cardiovascular: Regular rate, Regular Rhythm, Normal S1, Normal S2, No murmurs Abdomen: Bowel Sounds Present, Soft, Non Tender Extremities: No edema, Capillary Refill Less than 3 Seconds Skin: No rashes, No breakdown Musculoskeletal: No Tenderness to Palpation of Joints or Extremities Neurological: Neuro grossly intact Psych/Mental Status: Normal Affect, Appropriate Vital Signs Temp Pulse Resp BP Pulse Ox 98.4 F 67 16 140/74 H 99 01/01/18 20:25 01/01/18 21:29 01/01/18 21:21 01/01/18 21:29 01/01/18 21:21 Oxygen Delivery Method Room Air Weight: 239 lb 3.225 oz Body Mass Index (BMI) 43.7 Laboratory Tests Past 24 Hrs 01/01/18 01/01/18 21:10 21:10 WBC 7.0 RBC 4.65 Hgb 14.2 Hct 43.1 MCV 92.7 MCH 30.5 MCHC 32.9 RDW 13.6 RDW Differential 45.7 H Plt Count 176 MPV 9.1 Immature Gran % (Auto) 0.100 Neut % (Auto) 75.2 H Lymph % (Auto) 12.7 L [place] % (Auto) 10.1 H Eos % (Auto) 1.6 Baso % (Auto) 0.3 Absolute Neuts (auto) 5.3 Absolute Lymphs (auto) 0.89 Total Counted Not Reportable Sodium 145 Potassium 4.0 Chloride 105 Carbon Dioxide 28.0 Anion Gap 12 BUN 25 H Creatinine 1.08 H Estim Creat Clear Calc 40.53 Est GFR (MDRD) Af Amer 65 Est GFR (MDRD) Non-Af 54 L BUN/Creatinine Ratio 23.1 H Glucose 111 H Calcium 9.3 Troponin I < 0.015 Assessment/Plan All Active Problems (Last Reviewed 08/21/17 @ 14:32 by Paulette Carlin) Elevated LFTs (Acute) Hepatomegaly (Acute) Syncope (Acute) Acute diverticulitis (Acute) Adenocarcinoma of rectum (Resolved) Assessment - syncopal episode Chronic Problems (Last Reviewed 08/21/17 @ 14:32 by Paulette Carlin) History of rectal cancer (Chronic) Morbid obesity (Chronic) HTN (hypertension) (Chronic) HLD (hyperlipidemia) (Chronic) Diarrhea (Chronic) Plan - admit to PCU for observation - continue conveyor monitor overnight - regular diet - cbc, bmp in am - if stable in AM would allow for observed walking and possibly dc home if continues to be symptom free. Code Visit OBSV E&M: 81710 Initial observation care L2
--- NOTE | 2018-01-01 22:09 | HP.PCM_ITS ---
Problem List (1) Syncope Status: Acute Qualifiers: Syncope type: unspecified Qualified Code(s): R55 - Syncope and collapse (2) History of rectal cancer Status: Chronic (3) HTN (hypertension) Status: Chronic Qualifiers: (4) HLD (hyperlipidemia) Status: Chronic Qualifiers: (5) Diarrhea Status: Chronic Qualifiers: History of Present Illness Date of Admission: 01/01/18 Chief Complaint: syncope The patient is a 67 year old female patient present to the hospital by squad with a chief complaint of passing out. She had been feeling dizzy earlier in the day. [place] and her grandson was about to show their dairy heifer. She sat down on a stump and then passed out. She was caught by someone on her way down from seated position so she did not have any trauma. There was no seizure activity. She admits to not having eaten earlier today and has had diarrhea for the past few days for which she took an Imodium earlier today. She denies chest pain or shortness of breath. No previous syncopal episodes and no reported cardiac history. She is 3 years post rectal carcinoma diagnosis and treatment. Past Medical History Past Medical History (Chronic Problems): Chronic Problems (Last Reviewed 08/21/17 @ 14:32 by Paulette Carlin) History of rectal cancer (Chronic) Morbid obesity (Chronic) HTN (hypertension) (Chronic) HLD (hyperlipidemia) (Chronic) Diarrhea (Chronic) Medical History: Medical History (Last Reviewed 08/21/17 @ 14:32 by Paulette Carlin) Chronic UTI N39.0 Hyperlipidemia E78.5 Hypertension I10 Allergies lisinopril Adverse Reaction (Verified 01/01/18 20:25) Other COUGH Home Medications: Ambulatory Orders Medication Instructions Recorded Losartan Potassium [Cozaar] 50 mg PO QHS 05/11/17 Simvastatin [Zocor] 20 mg PO QHS 05/11/17 Surgical History: Surgical History (Last Reviewed 08/21/17 @ 14:32 by Paulette Carlin) History of colon resection Z98.890, Z90.49 History of tubal ligation Z98.51 Hx of cholecystectomy Z98.890, Z90.49 Surgical History: - - Colon resection, BLTL, Cholecystectomy. 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 Smoking Status: Never smoker - *Family History Maternal Family History: Family History (Last Reviewed 08/21/17 @ 14:32 by Paulette Carlin) Mother Skin cancer Heart disease Diabetes CVA (cerebral vascular accident) Father CVA (cerebral vascular accident) History Items: Diabetes, Heart Disease, Stroke Paternal Family History: Family History (Last Reviewed 08/21/17 @ 14:32 by Paulette Carlin) Mother Skin cancer Heart disease Diabetes CVA (cerebral vascular accident) Father CVA (cerebral vascular accident) History Items: Stroke Review of Systems Constitutional: Denies: Chills, Fever, Weight Change HEENT: Denies: Head Aches, Sinus Congestion, Sinus Drainage Cardiovascular: Reports: Light Headedness, Syncope. Denies: Chest Pain, Palpitations Respiratory: Denies: Cough, Shortness of breath at rest, Sputum production Gastrointestinal: Reports: Diarrhea. Denies: Abdominal Pain, Nausea, Vomiting Genitourinary: Denies: Dysuria Musculoskeletal: Denies: Joint Pain, Joint Tenderness Skin: Denies: Rash, Wounds Neurological: Denies: Numbness, Tingling, Focal weakness Psychiatric: Denies: Anxiety, Depression, Homicidal Ideations, Suicidal Ideations Hematologic/ Lymphatic: Denies: Easy Bruising, Easy Bleeding VTE Information - Inpt Only VTE Present on Admission: No VTE Mechan Device Prophylaxis: None VTE Pharm Prophylaxis ordered?: Yes Patient Problems: Active and Suspected Problems (Last Reviewed 08/21/17 @ 14:32 by Paulette Carlin) Syncope (Acute) - Physical Exam General: Alert, Oriented x3, Cooperative HEENT: Atraumatic, Normocephalic Neck: Supple, Negative Carotid Bruits Lungs: Clear to auscultation, Normal air movement, No rhonchi, No wheeze, No rales Cardiovascular: Regular rate, Regular Rhythm, Normal S1, Normal S2, No murmurs Abdomen: Bowel Sounds Present, Soft, Non Tender Extremities: No edema, Capillary Refill Less than 3 Seconds Skin: No rashes, No breakdown Musculoskeletal: No Tenderness to Palpation of Joints or Extremities Neurological: Neuro grossly intact Psych/Mental Status: Normal Affect, Appropriate Vital Signs Temp Pulse Resp BP Pulse Ox 98.4 F 67 16 140/74 H 99 01/01/18 20:25 01/01/18 21:29 01/01/18 21:21 01/01/18 21:29 01/01/18 21:21 Oxygen Delivery Method Room Air Weight: 239 lb 3.225 oz Body Mass Index (BMI) 43.7 Laboratory Tests Past 24 Hrs 01/01/18 01/01/18 21:10 21:10 WBC 7.0 RBC 4.65 Hgb 14.2 Hct 43.1 MCV 92.7 MCH 30.5 MCHC 32.9 RDW 13.6 RDW Differential 45.7 H Plt Count 176 MPV 9.1 Immature Gran % (Auto) 0.100 Neut % (Auto) 75.2 H Lymph % (Auto) 12.7 L [place] % (Auto) 10.1 H Eos % (Auto) 1.6 Baso % (Auto) 0.3 Absolute Neuts (auto) 5.3 Absolute Lymphs (auto) 0.89 Total Counted Not Reportable Sodium 145 Potassium 4.0 Chloride 105 Carbon Dioxide 28.0 Anion Gap 12 BUN 25 H Creatinine 1.08 H Estim Creat Clear Calc 40.53 Est GFR (MDRD) Af Amer 65 Est GFR (MDRD) Non-Af 54 L BUN/Creatinine Ratio 23.1 H Glucose 111 H Calcium 9.3 Troponin I < 0.015 Assessment/Plan All Active Problems (Last Reviewed 08/21/17 @ 14:32 by Paulette Carlin) Elevated LFTs (Acute) Hepatomegaly (Acute) Syncope (Acute) Acute diverticulitis (Acute) Adenocarcinoma of rectum (Resolved) Assessment - syncopal episode Chronic Problems (Last Reviewed 08/21/17 @ 14:32 by Paulette Carlin) History of rectal cancer (Chronic) Morbid obesity (Chronic) HTN (hypertension) (Chronic) HLD (hyperlipidemia) (Chronic) Diarrhea (Chronic) Plan - admit to PCU for observation - 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 Code Visit OBSV E&M: 32455 Initial observation care L2
--- NOTE | 2018-01-01 22:18 | ED.VISSUMM ---
- ER Visit Summary Date of Service: 01/01/18 Chief Complaint: [Syncope] History of Present Illness: The patient is a 67 F [presents to the emergency department after sustaining a [place]opal episode while [place] the [place]. Patient states that she remembers feeling lightheaded and feeling hot and so she sat down. Patient sat down and was speaking with 1 of her friends and the friend states that the patient got a glassy look in her eyes and she started to fall but was caught by some individuals and laid to the ground where she was unresponsive for about a minute. Patient was very diaphoretic. Patient came to pretty quickly and was alert and awake in no aware of her surroundings. There is no seizure-like activity. Patient had never had an episode like this before. She denies recent illness. Patient did have some diarrhea yesterday but this is somewhat of a chronic thing for her. Patient has a history of hypertension, cholesterol, history of colon cancer that is in remission.] Physical Examination: [HEENT-PERRLA, EOMI. Cranial nerves II through XII grossly intact. TMs clear. Mucous membranes moist. No adenopathy. Cardiovascular-regular rate and rhythm without murmur or ectopy Lungs-clear to auscultation, chest wall stable without crepitus or subcu emphysema Abdomen-normoactive bowel sounds, soft, nontender, no rebound or rigidity, no peritoneal signs. Extremities-intact ?4, normal range of motion, normal pulses, atraumatic] Test Results: [EKG obtained arrival shows sinus rhythm with a ventricular rate 73 bpm with occasional PVCs. CBC with differential was normal. Chemistries were normal. Troponin was less than 0.015. Orthostatic vital signs were negative.] Emergency Department Course and Treatment: [Patient received normal saline] Treatment Plan: [Admit for observation. Etiology of syncope unclear although I suspect possibly vasovagal.] Disposition: [Admit] Impression: [Syncope-etiology uncertain] This note was generated with [employer] dictation software. It may contain incorrect words, spelling, and punctuation that were not noted in review of the chart prior to signing ED Disposition - Plan for ED Patient: Chief Complaint: Syncope Referrals: Aleksandra Martin PA [Primary Care Provider] -
--- NOTE | 2018-01-01 22:32 | NURSING ---
Called ED at this time to confirm Pt okay to come to PCU.
[2018-01-01 22:45] VITALS: BP 158/94; PULSE 85; RESP 23; TEMP 37; O2SAT 94
[2018-01-01 22:52] VITALS: BMI 42.5
[2018-01-01 22:57] VITALS: PULSE 80
[2018-01-01 23:01] VITALS: PULSE 84
[2018-01-01 23:03] VITALS: BMI 42.5
--- NOTE | 2018-01-01 23:08 | EKG12_ITS ---
Test Reason : ADMISSION EKG Blood Pressure : / mmHG Vent. Rate : 078 BPM Atrial Rate : 078 BPM P-R Int : 166 ms QRS Dur : 082 ms QT Int : 426 ms P-R-T Axes : 045 -24 050 degrees QTc Int : 485 ms Sinus rhythm with frequent Premature ventricular complexes Nonspecific ST and T wave abnormality When compared with ECG of 01-JAN-2018 20:40, MANUAL COMPARISON REQUIRED, DATA IS UNCONFIRMED Confirmed by HECTOR TRAN, GABRIELLA ([id number]), clinical editor GILMA ROBERTO ([id number]) on 01/03/2018 2:05:09 PM Referred By: Davi Benz Confirmed By:GABRIELLA YOUNG MD
[2018-01-01] MEDS: Atorvastatin Calcium 10 MG Tablet PO (23:38)
[2018-01-02] VITALS (11 sets, daily range): BP systolic 125–158; BP diastolic 69–106; PULSE 62–88; RESP 14–18; TEMP 36.6–37.2; O2SAT 93–96
[2018-01-02] MEDS: 0.9% Normal Saline 1,000 ML 999 ML IV (05:56)
[2018-01-02] MEDS: 0.9% NaCl Peripheral Flush Adult/Peds IV (05:57)
[2018-01-02 06:50] LABS: Anion Gap 10 (5-15); BUN 19 mg/dL (7-18); Calcium,Total 8.7 mg/dL (8.5-10.1); Chloride 108 mmol/L (98-107); Creatinine, Serum 0.76 mg/dL (0.55-1.02); EST Glomerular Filtration Rate 81 mL/min (>60); Est Glom Filt Rate - Afr Amer 98 mL/min (>60); Estimated Creatinine Clearance 43.77 ml/min; Glucose 103 mg/dL (74-106); Potassium 3.4 mmol/L (3.5-5.1); Sodium Level 142 mmol/L (136-145)
[2018-01-02] MEDS: 0.9% Normal Saline 1,000 ML 125 ML IV ×2 (07:02→16:38)
[2018-01-02] MEDS: Enoxaparin 40 MG/0.4 ML Syringe SC (10:29)
--- NOTE | 2018-01-02 14:25 | PCM.PN.HOSP ---
Patient Problems: Active and Suspected Problems (Last Reviewed 08/21/17 @ 14:32 by Paulette Carlin) Syncope (Acute) Subjective: Feels a little better but was still dizzy this morning. No SOB, or CP Vitals/I&O's: Vital Signs Temp Pulse Resp BP Pulse Ox 98.4 F 63 16 136/69 H 94 01/02/18 10:00 01/02/18 11:14 01/02/18 10:00 01/02/18 10:00 01/02/18 10:00 Oxygen Delivery Method Room Air Weight: 232 lb 5.875 oz Body Mass Index (BMI) 42.5 Orthostatic Vital Signs Start: 01/02/18 04:41 Freq: q24h Status: Active Protocol: Activity Type Activity Date Activity User E-Sign Co-Sign Detail Recorded Client Recorded Date Recorded By Document 01/02/18 04:41 [facility] [place] [id number] 01/02/18 04:56 [facility] [place] 01/02/18 04:41 Orthostatic Vitals Standing -Blood Pressure (90/60-120/80) 156/86 H -Extremity Use Right Arm -Pulse Rate (60-100) 88 Sitting -Blood Pressure (90/60-120/80) 158/106 H -Extremity Use Right Arm -Pulse Rate (60-100) 78 Lying -Blood Pressure (90/60-120/80) 125/81 H -Extremity Use Right Arm -Pulse Rate (60-100) 68 Intake and Output for Last 24 Hours 12/31/17 01/01/18 01/02/18 23:59 23:59 23:59 Intake Total 200 / 200 2016 Balance 200 / 200 2016 General: Alert, Oriented x3, Cooperative, No apparent distress HEENT: Atraumatic, EOMI, Normocephalic Oral: Moist Mucosa Neck: Supple, No JVD Lungs: Clear to auscultation, Normal air movement, No rhonchi, No wheeze, No rales Cardiovascular: Regular rate, Regular Rhythm, Normal S1, Normal S2, No murmurs Abdomen: Soft, Non Tender, Non-Distended, No Hepato-splenomegaly Skin: No rashes, No breakdown Neurological: Neuro grossly intact, Sensory exam intact to light touch and pain Psych/Mental Status: Normal Affect, Appropriate Laboratory Results 01/02/18 06:05: Sodium 142, Potassium 3.4 L, Chloride 108 H, Carbon Dioxide 24.0, Anion Gap 10, BUN 19 H, Creatinine 0.76, Estim Creat Clear Calc 43.77, Est GFR (MDRD) Af Amer 98, Est GFR (MDRD) Non-Af 81, BUN/Creatinine Ratio 25.0 H, Glucose 103, Calcium 8.7 Current Medications Atorvastatin Calcium (Lipitor) 10 mg PO QHS [facility] Last Admin: 01/01/18 23:38 Dose: 10 mg Enoxaparin Sodium (Lovenox) 40 mg SC DAILY@1000 THIAGO Last Admin: 01/02/18 10:29 Dose: 40 mg Sodium Chloride () 1,000 mls @ 125 mls/hr IV .Q8H [facility] Last Admin: 01/02/18 07:02 Dose: 125 mls/hr Loperamide HCl (Imodium) 4 mg PO X1 PRN PRN Reason: Diarrhea Magnesium Hydroxide (Milk Of Magnesia) 30 ml PO DAILY PRN PRN Reason: Constipation Nutritional Formula (Lactose Free) (Ensure Enlive) 120 ml PO 4X/DAY [facility] Last Admin: 01/02/18 10:29 Dose: 120 ml Sodium Chloride () 5 - 30 ml IV UD PRN PRN Reason: SALINE FLUSH Last Admin: 01/02/18 05:57 Dose: 10 ml Medical Necessity - Tobacco Use Smoking Status: Never smoker Tobacco Use: Non-smoker Assessment/Plan All Active Problems (Last Reviewed 08/21/17 @ 14:32 by Paulette Carlin) Elevated LFTs (Acute) Hepatomegaly (Acute) Syncope (Acute) Acute diverticulitis (Acute) Adenocarcinoma of rectum (Resolved) 1. Syncope/HTN/HLD - She was dehydrated from a couple episodes of diarrhea and was not eating well - She was not orthostatic - BP and heart rate are normal - C/w IVF - Will check a mag and replace her potassium as well - EKG was non-ischemic - Can restart her loasartan on discharge - c/w statin DVT: Lovenox Diet: Regular Code Visit OBSV E&M: 00357 Subsequent observation care L2
--- NOTE | 2018-01-02 14:31 | PN_ITS ---
Patient Problems: Active and Suspected Problems (Last Reviewed 08/21/17 @ 14:32 by Paulette Carlin) Syncope (Acute) Subjective: Feels a little better but was still dizzy this morning. No SOB, or CP Vitals/I&O's: Vital Signs Temp Pulse Resp BP Pulse Ox 98.4 F 63 16 136/69 H 94 01/02/18 10:00 01/02/18 11:14 01/02/18 10:00 01/02/18 10:00 01/02/18 10:00 Oxygen Delivery Method Room Air Weight: 232 lb 5.875 oz Body Mass Index (BMI) 42.5 Orthostatic Vital Signs Start: 01/02/18 04:41 Freq: q24h Status: Active Protocol: Activity Type Activity Date Activity User E-Sign Co-Sign Detail Recorded Client Recorded Date Recorded By Document 01/02/18 04:41 [facility] [id number] 01/02/18 04:56 [facility] [place] 01/02/18 04:41 Orthostatic Vitals Standing -Blood Pressure (90/60-120/80) 156/86 H -Extremity Use Right Arm -Pulse Rate (60-100) 88 Sitting -Blood Pressure (90/60-120/80) 158/106 H -Extremity Use Right Arm -Pulse Rate (60-100) 78 Lying -Blood Pressure (90/60-120/80) 125/81 H -Extremity Use Right Arm -Pulse Rate (60-100) 68 Intake and Output for Last 24 Hours 12/31/17 01/01/18 01/02/18 23:59 23:59 23:59 Intake Total 200 / 200 2016 Balance 200 / 200 2016 General: Alert, Oriented x3, Cooperative, No apparent distress HEENT: Atraumatic, EOMI, Normocephalic Oral: Moist Mucosa Neck: Supple, No JVD Lungs: Clear to auscultation, Normal air movement, No rhonchi, No wheeze, No rales Cardiovascular: Regular rate, Regular Rhythm, Normal S1, Normal S2, No murmurs Abdomen: Soft, Non Tender, Non-Distended, No Hepato-splenomegaly Skin: No rashes, No breakdown Neurological: Neuro grossly intact, Sensory exam intact to light touch and pain Psych/Mental Status: Normal Affect, Appropriate Laboratory Results 01/02/18 06:05: Sodium 142, Potassium 3.4 L, Chloride 108 H, Carbon Dioxide 24.0 , Anion Gap 10, BUN 19 H, Creatinine 0.76, Estim Creat Clear Calc 43.77, Est GFR (MDRD) Af Amer 98, Est GFR (MDRD) Non-Af 81, BUN/Creatinine Ratio 25.0 H, Glucose 103, Calcium 8.7 Current Medications Atorvastatin Calcium (Lipitor) 10 mg PO QHS [facility] Last Admin: 01/01/18 23:38 Dose: 10 mg Enoxaparin Sodium (Lovenox) 40 mg SC DAILY@1000 THIAGO Last Admin: 01/02/18 10:29 Dose: 40 mg Sodium Chloride () 1,000 mls @ 125 mls/hr IV .Q8H [facility] Last Admin: 01/02/18 07:02 Dose: 125 mls/hr Loperamide HCl (Imodium) 4 mg PO X1 PRN PRN Reason: Diarrhea Magnesium Hydroxide (Milk Of Magnesia) 30 ml PO DAILY PRN PRN Reason: Constipation Nutritional Formula (Lactose Free) (Ensure Enlive) 120 ml PO 4X/DAY [facility] Last Admin: 01/02/18 10:29 Dose: 120 ml Sodium Chloride () 5 - 30 ml IV UD PRN PRN Reason: SALINE FLUSH Last Admin: 01/02/18 05:57 Dose: 10 ml Medical Necessity - Tobacco Use Smoking Status: Never smoker Tobacco Use: Non-smoker Assessment/Plan All Active Problems (Last Reviewed 08/21/17 @ 14:32 by Paulette Carlin) Elevated LFTs (Acute) Hepatomegaly (Acute) Syncope (Acute) Acute diverticulitis (Acute) Adenocarcinoma of rectum (Resolved) 1. Syncope/HTN/HLD - She was dehydrated from a couple episodes of diarrhea and was not eating well - She was not orthostatic - BP and heart rate are normal - C/w IVF - Will check a mag and replace her potassium as well - EKG was non-ischemic - Can restart her loasartan on discharge - c/w statin DVT: Lovenox Diet: Regular Code Visit OBSV E&M: 66140 Subsequent observation care L2
[2018-01-02 15:16] LABS: Magnesium 2.3 mg/dL (1.6-2.6)
[2018-01-02] MEDS: Atorvastatin Calcium 10 MG Tablet PO (21:10)
[2018-01-03] VITALS (7 sets, daily range): BP systolic 138–157; BP diastolic 71–95; PULSE 64–80; RESP 16–18; TEMP 36.7–37; O2SAT 94–97
[2018-01-03] MEDS: 0.9% Normal Saline 1,000 ML 75 ML IV (03:12)
--- NOTE | 2018-01-03 05:55 | ECHOD_ITS ---
Reason For Study: Syncope Procedure This was a 2D Doppler, Color Flow transthoracic echocardiogram. Exam performed portable in patient room. Left Ventricle Normal size and thickness. The estimated ejection fraction is 65 %. Stage 1 diastolic dysfunction. No regional wall motion abnormalities noted. Right Ventricle Normal size and thickness. Normal systolic function. Atria Normal left atrium. Normal right atrium. Normal atrial septum. Mitral Valve The mitral valve is structurally normal. No prolapse or stenosis seen. Trivial mitral valve insufficiency. Tricuspid Valve Normal tricuspid valve. Trivial tricuspid valve insufficiency. Right ventricular systolic pressure estimated to be 26 mmHg. Aortic Valve Normal aortic valve. Trisinus/trileaflet aortic valve. Pulmonic Valve Normal pulmonic valve. Great Vessels Normal aortic root. Normal arch. Normal inferior vena cava. Inferior vena cava collapse with sniff. Pericardium/Pleural No pericardial effusion. MMode/2D Measurements & Calculations LVIDd: 4.7 cm IVSd: 1.2 cm Ao root diam: 3.4 cm LVIDs: 3.5 cm LVPWd: 0.76 cm LA dimension: 4.2 cm RVDd: 3.0 cm FS: 26.1 % LAV(MOD-bp): 57.4 ml LVAd ap4: 29.7 cm2 SV(MOD-sp4): 48.1 ml LAV(MOD-bp) Indexed: 28.2 ml/m2 EDV(MOD-sp4): 91.8 ml LAV(MOD-sp2): 65.2 ml EDV(sp4-el): 94.0 ml LAV(MOD-sp4): 49.2 ml LVAs ap4: 18.0 cm2 ESV(MOD-sp4): 43.8 ml ESV(sp4-el): 43.5 ml EF(MOD-sp4): 52.3 % EF(sp4-el): 53.7 % SV(sp4-el): 50.5 ml LA A4 area: 18.6 cm2 RA A4 area: 17.8 cm2 Time Measurements MV dec time: 0.19 sec Doppler Measurements & Calculations MV E max corbin: 100.4 cm/sec Lat Peak E' Corbin: 9.7 cm/sec Med Peak E' Corbin: 15.2 cm/sec MV A max corbin: 108.6 cm/sec E/E' lat: 10.3 E/E' med: 6.6 MV E/A: 0.92 MV V2 max: 138.6 cm/sec MV P1/2t max corbin: 109.1 cm/sec Ao V2 max: 138.0 cm/sec MV max P.7 mmHg MV P1/2t: 75.6 msec Ao max P.6 mmHg MV V2 mean: 70.9 cm/sec MV dec slope: 422.7 cm/sec2 Ao V2 mean: 95.0 cm/sec MV mean P.4 mmHg MVA(P1/2t): 2.9 cm2 Ao mean P.0 mmHg MV V2 VTI: 34.7 cm Ao V2 VTI: 31.3 cm LV V1 max: 98.3 cm/sec PA V2 max: 61.5 cm/sec TR max corbin: 231.5 cm/sec LV V1 max P.9 mmHg TR max P.4 mmHg LV V1 mean P.0 mmHg LV V1 mean: 66.6 cm/sec LV V1 VTI: 24.7 cm Interpretation Summary The estimated ejection fraction is 65 %. Stage 1 diastolic dysfunction. Trivial mitral valve insufficiency. Trivial tricuspid valve insufficiency. Right ventricular systolic pressure estimated to be 26 mmHg. There is no comparison study available. Ordering Physician: Cirilo Lantigua Referring Physician: Davi Benz Performed By: Nikolay Graham RCS
[2018-01-03 06:34] LABS: Anion Gap 9 (5-15); BUN 13 mg/dL (7-18); BUN/Creat Ratio 19.7 RATIO (10-20); Calcium,Total 8.6 mg/dL (8.5-10.1); Chloride 111 mmol/L (98-107); Creatinine, Serum 0.66 mg/dL (0.55-1.02); EST Glomerular Filtration Rate 95 mL/min (>60); Est Glom Filt Rate - Afr Amer 115 mL/min (>60); Estimated Creatinine Clearance 43.77 ml/min; Glucose 102 mg/dL (74-106); Potassium 3.9 mmol/L (3.5-5.1); Sodium Level 146 mmol/L (136-145)
--- NOTE | 2018-01-03 11:00 | CASEMGMT ---
This RN CM to room with FARAH form at this time, explanation done and pt signed form at this time. Original to chart and copy to pt at this time. Pt voices no further questions/concerns/needs at this time. SStaten PIPER CM
--- NOTE | 2018-01-03 13:56 | DCINST_ITS ---
- Discharge Diagnoses Current Active Problems: Current Active and Chronic Problems (Last Reviewed 08/21/17 @ 14:32 by Paulette Carlin) Syncope (Acute) You will use the following diet at home:: No restrictions Your food should be the consistency of: Regular Discharge Activity: Return to Normal Activity, No Restrictions Allergies/Adverse Reactions: Allergies lisinopril Adverse Reaction (Verified 01/01/18 20:25) Other COUGH Medications to take at Discharge Losartan Potassium [Cozaar] 50 mg PO QHS 05/11/17 Simvastatin [Zocor] 20 mg PO QHS 05/11/17 Primary Care Physician: Aleksandra Martin PA [Primary Care Provider] - Test Results: Test results from this visit will be discussed in further detail at your follow- up appointment, if applicable. Proposed Discharge Date: 01/03/18
--- NOTE | 2018-01-03 13:56 | PCM.DC.SUM ---
Discharge Date and Diagnosis - Problem List Patient Problems: Active and Suspected Problems (Last Reviewed 08/21/17 @ 14:32 by Paulette Carlin) Syncope (Acute) Date of Admission: 01/01/18 Date of Discharge: 01/03/18 - Primary Discharge Diagnosis Active and Suspected Problems (Last Reviewed 08/21/17 @ 14:32 by Paulette Carlin) Syncope (Acute) - Secondary Discharge Diagnosis Chronic Problems (Last Reviewed 08/21/17 @ 14:32 by Paulette Carlin) Recent carpal tunnel surgery History of rectal cancer (Chronic) Morbid obesity (Chronic) HTN (hypertension) (Chronic) HLD (hyperlipidemia) (Chronic) Diarrhea (Chronic) Hospital Course and Treatment Imaging Results: 01/03/18 05:55 Echo Complete [ECHO] AM (NON MEDS) Operations: None Procedures: None Summary of Care Provided: The patient is a 67 year old F who presented ti the hospital following a syncopal episode. Was found to be slightly dehydrated on presentation though she was not orthostatic. Work up was essentially negative and today no repeat episodes and patient is doing fine and is stable She is ok for discharge. [] Discharge Activity: Return to Normal Activity, No Restrictions Home Medications: Medications to take at Discharge Losartan Potassium [Cozaar] 50 mg PO QHS 05/11/17 Simvastatin [Zocor] 20 mg PO QHS 05/11/17 Primary Care Physician: Aleksandra Martin PA [Primary Care Provider] - Disposition: Home Minutes spent on discharge:: 30 Patient Condition:: Good Medical Necessity - Tobacco Use Smoking Status: Never smoker Tobacco Use: Non-smoker Meaningful Use Info Meaningful Use Diagnoses (Choose all that apply): None applicable Code Visit OBSV E&M: 27170 Observation care discharge
== END 2018-01-03 13:56 | disposition home or self-care (01) ==
LOC: ED 21:43 → PCU 22:41
PROVIDERS: Family Medicine; Admitting Provider Family Medicine; Emergency Provider Emergency Medicine; Family Provider Physician Assistant; PCP Physician Assistant; Visit Provider Internal Medicine
DX: R55 Syncope and collapse (principal); E86.0 Dehydration; I10 Essential (primary) hypertension; E78.5 Hyperlipidemia, unspecified; E66.01 Morbid (severe) obesity due to excess calories; Z68.41 Body mass index [BMI] 40.0-44.9, adult; Z71.3 Dietary counseling and surveillance; Z85.048 Personal history of other malignant neoplasm of rectum, rectosigmoid junction, and anus; Z79.899 Other long term (current) drug therapy
CPT/HCPCS: 36415; 80048; 83735; 84484; 85025; 93005; 93306; 96360; 96361; 96372; 97802; 99218; 99285; J7030; Q9957; A4216; G0378

== ENCOUNTER → 2018-02-19 07:43 | Outpatient (CLI) | payer MEDICARE, OTHER, SELFPAY ==
--- NOTE | 2018-02-19 07:46 | CT_ITS ---
STUDY: CT ABDOMEN AND PELVIS WITH CONTRAST REASON FOR EXAM: Female, 67 years old. Follow-up rectal cancer RADIATION DOSAGE (If Supplied By Facility): CTDIvol = ( 18.62 ) mGy, DLP = ( 1251.35 ) mGycm TECHNIQUE: Transaxial images were obtained from the dome of the diaphragm to the symphysis pubis with oral contrast. 100mL ml of Isovue 300 contrast was administered. Sagittal and coronal images were reconstructed. Individualized dose optimization techniques were used for this CT. COMPARISON: August 06, 2017 CT scan abdomen and pelvis April 07, 2016, March 25, 2015 CT scan abdomen and pelvis FINDINGS: In the left lung base in the periphery there is a 4.9 mm nodule. There is a 4.0 mm nodule within the left lung base. These are stable when compared to prior study dating back to April 07, 2016. The visualized portions of the heart are within normal limits. There is hepatic steatosis. There are surgical clips in the gallbladder fossa consistent with a prior cholecystectomy. There is stable appearing mild extrahepatic ductal dilatation measuring up to 1.0 cm. This tapers towards the pancreas. Normal spleen. Normal pancreas. There is a focal nodular density within the left adrenal gland that measures 1.8 x 1.8 cm. This is stable when compared to the prior studies. Normal right kidney. Normal left kidney. There is contrast within the stomach. Normal small intestine. Is abundant stool in the colon. There are a few diverticula present without visualized diverticulitis. There is visualized postoperative change within the rectosigmoid junction. There is a partially decompressed appearance of the ascending colon. The appendix is seen and appears normal. Normal abdominal aorta. Normal inferior vena cava. A few nonspecific subcentimeter periaortic lymph nodes. Normal urinary bladder. Normal visualized uterus. There is diastases of the rectus muscle which a focus of the abdominal wall measuring 8.1 x 5.1 cm fat herniates without containing bowel. This is a similar finding to April 07, 2016 but new since March 25, 2015. There are diffuse degenerative changes of the visualized lumbar spine. L2-L3 there is a broad disc bulge and moderate neural foramina narrowing minimal central stenosis facet arthropathy. At L3-L4 there is a broad disc bulge mild neural foraminal narrowing facet arthropathy minimal neural foramina narrowing minimal central stenosis. At L4-L5 there is slight anterolisthesis broad disc bulge and [id number] neural foramina narrowing facet arthropathy. There is no significant central stenosis CT/Abdomen/Pelvis WITH Contrast IMPRESSION: Postoperative changes rectosigmoid junction stable in appearance since prior study. There is similar-appearing presacral stranding. No evidence of new suspicious lymph node or mass. Stable fatty midline hernia likely incisional hernia. Constipation diverticulosis no evidence of diverticulitis. There is hepatic steatosis. There is postoperative change status post cholecystectomy with stable common duct distention. Stable left lower lobe pulmonary nodules likely sequelae of granulomatous disease. Stable left adrenal mass since March 25, 2015 likely consistent with an adrenal adenoma. Electronically Signed: Madisyn De La Garza MD at 23:17 EDT Tel , Service support ,
[2018-02-19 08:05] LABS: CREATININE FINGERSTICK 0.8 mg/dL (0.55-1.02); EGFR FINGERSTICK > 60.0000 mL/min (>60)
== END ==
PROVIDERS: Family Provider Physician Assistant; PCP Physician Assistant; Referring Provider Internal Medicine Medical Oncology; Visit Provider Internal Medicine Medical Oncology
DX: C20 Malignant neoplasm of rectum (principal)
CPT/HCPCS: 74177; Q9967

== ENCOUNTER → 2019-03-07 12:46 | Outpatient (CLI) | payer MEDICARE, OTHER, SELFPAY ==
[2018-08-30 11:02] VITALS: BMI 45.3
--- NOTE | 2019-03-07 12:47 | CT_ITS ---
STUDY: CT ABDOMEN AND PELVIS WITH CONTRAST REASON FOR EXAM: Female, 68 years old. Colorectal cancer. RADIATION DOSAGE (If Supplied By Facility): CTDIvol = ( 13.7 ) mGy, DLP = ( 1180.63 ) mGycm TECHNIQUE: Transaxial images were obtained from the dome of the diaphragm to the symphysis pubis without oral contrast. IV/Oral Isovue 300 100 was administered. Sagittal and coronal images were reconstructed. Individualized dose optimization techniques were used for this CT. COMPARISON: Including February 19, 2018. FINDINGS: There is stable 0.4 and 0.5 cm left lung nodules. The visualized portions of the heart are within normal limits. There is hepatomegaly with diffuse hepatic enlargement. There are surgical clips in the gallbladder fossa consistent with a prior cholecystectomy. Normal spleen. Normal pancreas. There is stable 1.8 cm left adrenal nodule.. Normal right kidney. Normal left kidney. Normal visualized stomach. Normal small intestine. There are multiple colonic diverticula consistent with diverticulosis. There is postoperative change of the distal colon. The appendix is visualized and appears normal. Normal abdominal aorta. Normal inferior vena cava. Normal retroperitoneum. Normal urinary bladder. Normal visualized uterus. There is no free fluid in the abdomen or pelvis. There is diastases of the abdominal wall musculature with umbilical hernia containing fat. There are diffuse degenerative changes of the visualized lumbar spine. CT/Abdomen/Pelvis WITH Contrast IMPRESSION: Stable postoperative change. Stable left adrenal nodule. Colonic diverticulosis. No obstruction. Hepatomegaly. Abdominal wall hernia. Electronically Signed: Orlando Pinto MD at 9:00 EST , Service support ,
[2019-03-07 13:01] LABS: CREATININE FINGERSTICK 0.7 mg/dL (0.55-1.02); EGFR FINGERSTICK > 60.0000 mL/min (>60)
== END ==
PROVIDERS: Family Provider Physician Assistant; PCP Physician Assistant; Referring Provider Internal Medicine Medical Oncology; Visit Provider Internal Medicine Medical Oncology
DX: C20 Malignant neoplasm of rectum (principal)
CPT/HCPCS: 74177; Q9967

== ENCOUNTER → 2020-03-12 12:07 | Outpatient (CLI) | payer MEDICARE, OTHER, SELFPAY ==
[2019-03-11 10:52] VITALS: BMI 44.0
--- NOTE | 2020-03-12 12:25 | CT_ITS ---
STUDY: CT CHEST WITH CONTRAST REASON FOR EXAM: Female, 69 years old. FOLLOW UP RECTAL CA W/ CHEMO -- SURG-RECTAL TUMOR REMOVED, BOWEL RESECTION DUE TO COLON CA, GB RADIATION DOSAGE (If Supplied By Facility): CTDIvol = ( 22.41 ) mGy, DLP = ( 2180.79 ) mGycm TECHNIQUE: Transaxial imaging was performed following intravenous administration of IV 100mL Isovue-370. Multiplanar coronal and sagittal images were reformatted. Individualized dose optimization techniques were used for this CT. COMPARISON: Comparison is made with prior study dated 10/06/2016. FINDINGS: Stable small benign appearing bilateral axillary lymph nodes. Mild degree of increased linear markings and volume loss in the medial aspect of the right middle lobe suggestive of scarring. There is evidence of bronchiectasis at that site. Minimal linear scarring in the lingular segment of the left upper lobe . 3 stable nodular opacities in the peripheral lateral aspect of the left lower lobe. There is no demonstrated pleural abnormality. Normal heart and pericardium. Normal mediastinum. Normal hilar regions. Normal enhanced pulmonary arteries. Normal aorta arch and descending thoracic aorta. There are multi-level degenerative changes of the thoracic spine. Diffuse fatty infiltration of the liver. CT/Chest WITH Contrast IMPRESSION: Findings suggestive of mild degree of scarring with bronchiectasis in the medial aspect of the right middle lobe. Diffuse fatty infiltration of the liver. Electronically Signed: Salo Bernabe, at 13:32 EST , Service support ,
--- NOTE | 2020-03-12 12:25 | CT_ITS ---
STUDY: CT ABDOMEN AND PELVIS WITH CONTRAST REASON FOR EXAM: Female, 69 years old. FOLLOW UP RECTAL CA W/ CHEMO -- SURG-RECTAL TUMOR REMOVED, BOWEL RESECTION DUE TO COLON CA, GB RADIATION DOSAGE (If Supplied By Facility): CTDIvol = ( 22.41 ) mGy, DLP = ( 2180.79 ) mGycm TECHNIQUE: Transaxial images were obtained from the dome of the diaphragm to the symphysis pubis without oral contrast. IV 100mL Isovue-370 was administered. Sagittal and coronal images were reconstructed. Individualized dose optimization techniques were used for this CT. COMPARISON: Comparison is made with prior study dated 03/07/2019. FINDINGS: Findings suggestive of a mild scarring and volume loss in the right middle lobe. Bronchiectasis. The visualized portions of the heart are within normal limits. There is decreased attenuation of the liver consistent with steatosis. Hepatomegaly. Normal gallbladder and extrahepatic biliary system. 3 Normal pancreas. There is a small, circumscribed, smooth, low attenuation left adrenal mass, consistent with an adrenal adenoma. This measures 1.8 cm. Normal right adrenal gland. Normal right kidney. Normal left kidney. There is a small hiatal hernia. Normal small intestine. There are multiple colonic diverticula consistent with diverticulosis. The anastomosis is seen in the region of the rectosigmoid junction. The appendix is visualized and appears normal. Normal abdominal aorta. Normal inferior vena cava. Normal retroperitoneum. Normal urinary bladder. There is a moderate umbilical hernia containing fat. The neck of the hernia measures 5.3 cm. There are diffuse degenerative changes of the visualized lumbar spine. CT/Abdomen/Pelvis W IV Cont ONLY IMPRESSION: Mild hepatomegaly and fatty infiltration of the liver. Status post anastomosis in the lower rectosigmoid junction. Diverticulosis. Umbilical hernia. Electronically Signed: Salo Bernabe, at 13:07 EST , Service support ,
[2020-03-12 12:37] LABS: Absolute Lymphocyte Count 1.29 X10^3/uL (0.83-4.51); Absolute Neutrophil Count 3.9 X10^3/uL (2.0-7.7); Basophil# 0.03 X10^3/uL; Basophil% 0.5 % (0-1); Eosinophil# 0.15 X10^3/uL; Eosinophils% 2.5 % (0-5); Hematocrit 45.3 % (37-47); Hemoglobin 14.9 g/dL (12.0-15.0); Lymphocyte # 1.29 X10^3/ul (4.0); Lymphocyte % 21.3 % (19-41); Mean Corp Hgb Conc 32.9 g/dL (32-36); Mean Corpuscular Volume 94.2 fL (81-99); Mean Platelet Vol. 9.8 fl (6.2-12.0); Monocyte# 0.64 X10^3/uL; Monocyte% 10.6 % (0-10); NRBC Flagged by Analyzer 0 % (0-5); Neutrophil # 3.93 X10^3/uL (2.7-7.7); Neutrophil % 64.8 % (47-70); Platelet Count 200 K/mm3 (150-450); RBC Distribution Width CV 12.5 % (11.6-14.6); RBC Distribution Width SD 43.4 fl (35.1-43.9); Red Blood Count 4.81 M/mm3 (4.2-5.4); White Blood Count 6.1 K/mm3 (4.4-11.0)
[2020-03-12 12:45] LABS: CREATININE FINGERSTICK < 0.6 mg/dL (0.55-1.02); EGFR FINGERSTICK > 60.0000 mL/min (>60)
[2020-03-12 12:46] LABS: ALB/GLOB Ratio 1.1 RATIO (0.9-2.4); AST(SGOT) 31 U/L (15-37); Alanine Aminotransfer ALT/SGPT 45 U/L (13-56); Albumin, Serum 3.7 g/dL (3.2-5.0); Alkaline Phosphatase 101 U/L (45-117); Anion Gap 4 (5-15); BUN 15 mg/dL (7-18); BUN/Creat Ratio 20.2 RATIO (10-20); Calcium,Total 9.1 mg/dL (8.5-10.1); Chloride 107 mmol/L (98-107); Creatinine, Serum 0.74 mg/dL (0.55-1.02); EST Glomerular Filtration Rate 83 mL/min (>60); Est Glom Filt Rate - Afr Amer 100 mL/min (>60); Globulin 3.5 g/dL (2.2-4.2); Glucose 176 mg/dL (74-106); LDH 229 U/L (84-246); Potassium 3.8 mmol/L (3.5-5.1); Protein, Total 7.2 g/dL (6.4-8.2); Sodium Level 141 mmol/L (136-145)
[2020-03-13 16:41] LABS: Carcinoembryonic Antigen 2.5 ng/mL (0.0-4.7)
== END ==
PROVIDERS: PCP Physician Assistant; Referring Provider Internal Medicine Medical Oncology; Visit Provider Internal Medicine Medical Oncology
DX: Z85.048 Personal history of other malignant neoplasm of rectum, rectosigmoid junction, and anus (principal)
CPT/HCPCS: 36415; 71260; 74177; 80053; 82378; 83615; 85025; Q9967

== ENCOUNTER → 2022-03-01 | Outpatient (CLI) | payer MEDICARE, OTHER, SELFPAY ==
[2022-03-08 15:27] LABS: HPV APTIMA, High Risk Negative (Negative)
== END | disposition home or self-care (01) ==
LOC: LABSPEC 10:23
PROVIDERS: PCP Physician Assistant; Visit Provider Obstetrics & Gynecology
DX: Z12.4 Encounter for screening for malignant neoplasm of cervix (principal)
CPT/HCPCS: 87624; 88175; G0145

== ENCOUNTER 2022-04-17 04:14 | Inpatient (IN) | payer MEDICARE, OTHER, SELFPAY ==
[2022-04-17 04:45] VITALS: BMI 43.6
[2022-04-17 04:53] VITALS: BP 153/76; PULSE 84; RESP 17; TEMP 36.6; O2SAT 92
--- NOTE | 2022-04-17 04:59 | PCM.HP.STD ---
HPI - General General Date of Admission: 04/17/22 Date of Service: 04/17/22 Chief Complaint: Abdominal pain, cramping, BRBPR. HPI Narrative The patient is a 71 y/o F w/ PMHx: WICHO on CPAP q HS, Morbid obesity, HTN, HLD, Hypothyroidism, Diabetes mellitus type II, IBS, Hx rectal CA s/p colon resection following w/ Dr. Long, Recurrent UTIs, recent Dejan 03/29/2022 status post examination under anesthesia with anterior vaginal mass resection and cystourethroscopy per Dr. Dickson with reported pathology as benign who [facility] on 04/16/22 with history of onset on 04/16/22 lightheaded, dizziness starting yesterday, LLQ abdominal crampin, nausea without emesis, diarrhea with BRBPR x 2 at home-->attempted to walk afterwards and had syncopal event into the recliner with no trauma, lasted seconds prompting outside ED evaluation with ED noted bloody diarrhea x 1 episode in the ED. She denies any fever or chills. Work-up at the outside facility included VS 143/95, HR 81, 98.1 T, RR 16, 93% on RA, CT A/P with mild stranding presacral space consistent mild distal colitis, occult bloods stool positive, urinalysis with protein 15, blood 250, specific remedy 1.005, nitrite negative, leukocyte Estrace 25, urine WC is 1-5, urine RBCs 5-10 with 1+ urine bacteria w/ UCx pending per ED, troponin high-sensitivity 4.8, CMP with sodium 140, potassium 3.2, chloride 100, CO2 27.4, glucose 126, BUN/creatinine 24/0.90, unremarkable hepatic profile, CBC with WC 8.3, hemoglobin 13, platelet 235 without marked shift with most recent hemoglobin noted in clinic seeing system prior 03/16/2022 with hemoglobin 12.8 at that time. [facility] Medical History (Updated 04/17/22 @ 05:[address] Laura Jack MD) Adenocarcinoma of rectum Cervical mass Chronic UTI Diabetes mellitus, type 2 GI bleed Hyperlipidemia Hypertension Hypothyroidism IBD (inflammatory bowel disease) Morbid obesity WICHO on CPAP Home Medications losartan 50 mg tablet (Cozaar) 50 mg PO QHS BP 05/11/17 [History Last Taken 04/15/22] simvastatin 20 mg tablet 20 mg PO QHS cholesterol 05/11/17 [History Last Taken 04/15/22] loperamide 2 mg capsule 2 mg PO DAILY PRN PRN Diarrhea 08/30/18 [History Last Taken 04/14/22] levothyroxine 50 mcg tablet 125 mcg PO DAILY thyroid 03/16/20 [History Last Taken 04/16/22] hydrochlorothiazide 12.5 mg capsule 12.5 mg PO DAILY bp 03/11/21 [History Last Taken 04/15/22] metformin 500 mg tablet 500 mg PO DAILY dm 03/11/21 [History Last Taken 04/15/22] dulaglutide 1.5 mg/0.5 mL subcutaneous pen injector (Trulicity) 1.5 mg subcut QWEEK dm 04/17/22 [History Last Taken 04/11/22] Allergy/AdvReac Type Severity Reaction Status Date / Time lisinopril AdvReac Other Verified 03/11/21 14:54 Family History (Updated 04/17/22 @ 02:[address] Laura Jack MD) Mother Skin cancer Heart disease Diabetes CVA (cerebral vascular accident) Father CVA (cerebral vascular accident) Grandfather Colon cancer Maternal grandfather Aunt Colon cancer Maternal aunt. Surgical History (Updated 04/17/22 @ 02:[address] Laura Jack MD) History of carpal tunnel release History of colon resection History of tubal ligation Hx of cholecystectomy Social History (Updated 04/17/22 @ 02:[address] Laura Jack MD) household members: spouse Smoking Status: Never smoker alcohol intake: current alcohol intake frequency: holidays/special occasions only substance use type: does not use ROS ROS Narrative Admission Review of Systems: CONSTITUTIONAL: No weight loss, fever, chills, + weakness or fatigue. HEENT: + Lightheadedness, dizziness. Eyes: No visual loss, blurred vision, double vision or yellow sclerae. Ears, Nose, Throat: No hearing loss, sneezing, congestion, runny nose or sore throat. SKIN: No rash or itching, lesions, wounds. CARDIOVASCULAR: + Lightheadedness, dizziness, syncopal event. No chest pain, chest pressure or chest discomfort, palpitations, edema, orthopnea. RESPIRATORY: No shortness of breath, cough or sputum, wheezing, hemoptysis. GASTROINTESTINAL: + Anorexia, nausea, diarrhea, abdominal cramping, bright red blood per rectum, no melanotic stools or emesis noted. GENITOURINARY: No dysuria, frequency, urgency or retention. NEUROLOGICAL: + Lightheadedness, dizziness, syncopal event. No paralysis, ataxia, numbness or tingling in the extremities, focal weakness, change in bowel or bladder control, seizure. MUSCULOSKELETAL: + muscle, back pain, joint pain or stiffness. HEMATOLOGIC: + anemia, bleeding or bruising. LYMPHATICS: No enlarged nodes. No history of splenectomy. PSYCHIATRIC: No history of depression or anxiety. ENDOCRINOLOGIC: No reports of sweating, cold or heat intolerance. No polyuria or polydipsia. ALLERGIES: No history of asthma, hives, eczema or rhinitis. Vital Signs Vital Signs Vital Signs: 04/17/22 04:53 04/17/22 04:55 Temperature 97.9 F Temperature Source Temporal Pulse Rate 84 Respiratory Rate 17 Respiratory Effort Normal Non-Labored Respiratory Depth Normal Respiratory Pattern Normal Blood Pressure 153/76 H Blood Pressure Mean 101 Blood Pressure Source Monitor Blood Pressure Position Semi-Fowlers Blood Pressure Location Left Arm Pulse Ox 92 Oxygen Delivery Method Room Air Room Air Weight Weight: 231 lb Body Mass Index (BMI) 43.6 Physical Exam Narrative Physical Examination: General: Awake, alert, oriented x 3 and cooperative, laying in the medical surgical bed, fatigued appearing. Skin: Normal color, normal turgor, no icterus, no cyanosis. HEENT: AT/NC, EOMI, PERRLA, mildly dry MM, no carotid bruits or JVD noted. Lungs: Mildly diminished, greater bases, appropriate effort, no rales, ronchi or wheezing. Heart: Regular rate and rhythm; no gallop, rub audible. Abdomen: Soft, mild left lower quadrant discomfort with deep palpation although no rebound or guarding, no marked distention noted although morbidly obese thus habitus makes evaluation difficult, mildly hyperactive bowel sounds, no obvious HSM but again difficult exam with habitus. Extremities: No cyanosis, clubbing, or edema. Neurological: Patient awake, alert, oriented as noted, cognitive function intact; pupils equally reactive to light and accommodation, cranial nerves II-XII grossly normal, moving all 4 extremities, no focal deficits, strength mildly global decrease secondary to acute presentation complaints Psychiatric: Affect appears mildly flat, fatigued, no acute evidence of depressive or anxiety feelings. Assessment & Plan Assessment/Plan (1) Colitis: PLAN: Plan The patient is a 71 y/o F w/ PMHx: WICHO on CPAP q HS, Morbid obesity, HTN, HLD, Hypothyroidism, Diabetes mellitus type II, IBS, Hx rectal CA s/p colon resection following w/ Dr. Long, Recurrent UTIs, recent Dejan 03/29/2022 status post examination under anesthesia with anterior vaginal mass resection and cystourethroscopy per Dr. Dickson with reported pathology as benign who [facility] on 04/16/22 with history of onset on 04/16/22 lightheaded, dizziness starting yesterday, LLQ abdominal crampin, nausea without emesis, diarrhea with BRBPR x 2 at home-->attempted to walk afterwards and had syncopal event into the recliner with no trauma, lasted seconds prompting outside ED evaluation with ED noted bloody diarrhea x 1 episode in the ED. #1. Acute GI Bleed suspected primarily secondary to acute mild distal colitis with associated syncopal event following, suspect vasovagal with acute presentation: Patient most recent previous hemoglobin noted on 03/16/20202011.8 at that time with outside facility hemoglobin 13, will admit to [facility], maintain on IVFs, plan repeat hemoglobin this a.m. and further serial trending as needed, will maintain on IV Zosyn given colitis findings, will maintain on IV PPI. Given patient underlying history of rectal cancer to be cautious will request gastroenterology involvement however given colitis findings certainly could be likely etiology. Will maintain n.p.o. status until clinically improving with transition to clears once assure resolving. Stool culture and C. difficile requested to be cautious also. #2. History rectal cancer: Following with Dr. Long, diagnosed 11/[address], status post low anterior resection 02/20/2015, node positive disease, stage III (pT3, N2a, M0)-->7 weeks of concomitant chemoradiation with treatment with 5-FU-> FOLFOX complicated by cytopenias, 08/06/2017 CT with Erin serrano with follow-up MRI demonstrating fatty liver with evaluation by Dr. Mcwilliams given ongoing diarrhea and abdominal cramping with stool incontinence felt secondary to patulous anal canal, CT chest abdomen pelvis 03/12/2021 with no evidence of disease at that time. Previously and per recent notes considered in remission, some concern given #1. #3. Hypertension: Continue home regimen including hydrochlorothiazide, losartan with hold parameters as needed, PRN hydralazine. #4. Hyperlipidemia: We will continue patient on statin therapy #5. Hypothyroidism: Continue home levothyroxine regimen. #6. Diabetes mellitus type II: Hold oral home regimen, n.p.o. status given presentation, in the interim accu checks w/ ISS. #7. Morbid Obesity: Weight loss and lifestyle changes encouraged. #8. WICHO: CPAP nightly. #9. DVT prophylaxis: SCDs, defer chemoprophylaxis given acute presentation is noted. Charges/Coding Visit Charges OBSV E&M: 73036 Initial observation care L3
[2022-04-17] MEDS: 0.9% Normal Saline 1,000 ML 125 ML IV ×3 (05:12→21:11)
[2022-04-17 05:55] LABS: Bedside Glucose 133 mg/dL (74-106)
[2022-04-17 08:20] VITALS: O2SAT 92
--- NOTE | 2022-04-17 08:20 | CPS ---
Pt says she has not had a sleep study, she told Dr that she feels she might have it because she snores but has had no testing nor does she wear a CPAP at .
[2022-04-17 09:54] VITALS: BP 111/61; PULSE 79; RESP 18; TEMP 37.2; O2SAT 94
[2022-04-17 12:51] LABS: Bedside Glucose 118 mg/dL (74-106)
--- NOTE | 2022-04-17 14:29 | PCM.HOSP.N ---
Hospitalist Note Reports feeling about the same at the time of evaluation this morning, still some mild abdominal discomfort mostly in the left lower quadrant. Had not yet had a bowel movement. Still feels a little dizzy at times. Admission labs were performed at outlying facility. We will repeat hemoglobin here to assess for any further drop. C. difficile ordered but not collected. Given concern for colitis she remains on Zosyn. GI consulted
[2022-04-17 15:20] VITALS: BP 111/51; PULSE 71; RESP 16; TEMP 36.6; O2SAT 93
[2022-04-17 15:32] LABS: Absolute Lymphocyte Count 1.09 X10^3/uL (0.83-4.51); Absolute Neutrophil Count 4.3 X10^3/uL (2.0-7.7); Basophil# 0.02 X10^3/uL; Basophil% 0.3 % (0-1); Eosinophil# 0.13 X10^3/uL; Eosinophils% 2.1 % (0-5); Hematocrit 35.1 % (37-47); Hemoglobin 11.2 g/dL (12.0-15.0); Lymphocyte # 1.09 X10^3/ul (0.83-4.51); Lymphocyte % 17.6 % (19-41); Mean Corp Hgb Conc 31.9 g/dL (32-36); Mean Corpuscular Volume 97.2 fL (81-99); Mean Platelet Vol. 9.1 fl (6.2-12.0); Monocyte# 0.58 X10^3/uL; Monocyte% 9.4 % (0-10); NRBC Flagged by Analyzer 0 % (0-5); Neutrophil # 4.34 X10^3/uL (2.7-7.7); Platelet Count 207 K/mm3 (150-450); RBC Distribution Width CV 13.5 % (11.6-14.6); RBC Distribution Width SD 48.1 fl (35.1-43.9); Red Blood Count 3.61 M/mm3 (4.2-5.4); White Blood Count 6.2 K/mm3 (4.4-11.0)
[2022-04-17 16:00] LABS: ALB/GLOB Ratio 0.9 RATIO (0.9-2.4); AST(SGOT) 23 U/L (15-37); Alanine Aminotransfer ALT/SGPT 30 U/L (13-56); Albumin, Serum 2.9 g/dL (3.2-5.0); Alkaline Phosphatase 71 U/L (45-117); Anion Gap 4 (5-15); BUN 16 mg/dL (7-18); BUN/Creat Ratio 20.8 RATIO (10-20); Chloride 111 mmol/L (98-107); Creatinine, Serum 0.77 mg/dL (0.55-1.02); EST Glomerular Filtration Rate 79 mL/min (>60); Est Glom Filt Rate - Afr Amer 95 mL/min (>60); Globulin 3.1 g/dL (2.2-4.2); Glucose 111 mg/dL (74-106); Potassium 3.3 mmol/L (3.5-5.1); Sodium Level 144 mmol/L (136-145)
--- NOTE | 2022-04-17 16:59 | CON.PCM.GI_ITS ---
HPI Consult Data Date of Consult: 04/17/22 HPI Narrative Reason for Consultation: GI bleed HPI Narrative: DELMY ROLDAN, is a 71 F who presents with lower GI bleed.? Her GI history really started in 2014. She had a history of recurrent UTI in November 2014, which prompted a CT of the abdomen that revealed incidental finding of rectal mass. S he underwent low anterior resection under the care of? Dr. Mcgovern on 02/20/2015. 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 Thus, she underwent 7 weeks of concomitant chemoradiation beginning 04/08/2015 through 05/18/2015 with infusional 5-FU. She began FOLFOX therapy on 06/01/2015 with leucovorin dose attenuated by 50%.? The patient experienced cytopenia with cycle 4, and oxaliplatin was attenuated by 25% and 5-FU bolus attenuated by 50%.? She completed 9 cycles total on 09/22/2015. Port removed on 08/22/16.? CT on 08/06/2017 showed hepatomegaly, MRI on 08/17/2017 showed fatty liver. She complained of? having diarrhea, cramping and abdominal pain with meals weekly, was seen by Dr. Johana James,? 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 He advised surgery follow up. CT c/a/p on showed no evidence of disease. Dean Tinoco initially on 04/16/22 with history of onset on 04/16/22 lightheaded, dizziness starting yesterday, LLQ abdominal crampin, nausea without emesis, diarrhea with bright red blood per rectum. She attempted to walk afterwards and had syncopal event into the recliner with no trauma. At outside ED evaluation with ED noted bloody diarrhea x 1 episode in the ED. She denies any fever or chills. Work-up at the outside facility included VS 143/95, HR 81, 98.1 T, RR 16, 93% on RA, CT A/P with mild stranding presacral space consistent mild distal colitis, occult bloods stool positive. She currently complains of some mild crampy abdominal pain. She has not had any bowel movement since being admitted to [facility] for stool analysis of infection. [facility] Medical History (Updated 04/17/22 @ 05:[address] Laura Jack MD) Adenocarcinoma of rectum Cervical mass Chronic UTI Diabetes mellitus, type 2 GI bleed Hyperlipidemia Hypertension Hypothyroidism IBD (inflammatory bowel disease) Morbid obesity WICHO on CPAP Home Medications losartan 50 mg tablet (Cozaar) 50 mg PO QHS BP 05/11/17 [History Last Taken 04/15/22] simvastatin 20 mg tablet 20 mg PO QHS cholesterol 05/11/17 [History Last Taken 04/15/22] loperamide 2 mg capsule 2 mg PO DAILY PRN PRN Diarrhea 08/30/18 [History Last Ta jaret 04/14/22] levothyroxine 50 mcg tablet 125 mcg PO DAILY thyroid 03/16/20 [History Last Taken 04/16/22] hydrochlorothiazide 12.5 mg capsule 12.5 mg PO DAILY bp 03/11/21 [History Last Taken 04/15/22] metformin 500 mg tablet 500 mg PO DAILY dm 03/11/21 [History Last Taken 04/15/22] dulaglutide 1.5 mg/0.5 mL subcutaneous pen injector (Trulicity) 1.5 mg subcut QWEEK dm 04/17/22 [History Last Taken 04/11/22] Allergy/AdvReac Type Severity Reaction Status Date / Time lisinopril AdvReac Other Verified 04/17/22 05:51 Family History (Updated 04/17/22 @ 02:[address] Laura Jack MD) Mother Skin cancer Heart disease Diabetes CVA (cerebral vascular accident) Father CVA (cerebral vascular accident) Grandfather Colon cancer Maternal grandfather Aunt Colon cancer Maternal aunt. Surgical History (Updated 04/17/22 @ 02:[address] Laura Jack MD) History of carpal tunnel release History of colon resection History of tubal ligation Hx of cholecystectomy Social History (Updated 04/17/22 @ 02:[address] Laura Jack MD) household members: spouse Smoking Status: Never smoker alcohol intake: current alcohol intake frequency: holidays/special occasions only substance use type: does not use ROS ROS Narrative Admission Review of Systems: CONSTITUTIONAL: No weight loss, fever, chills, + weakness or fatigue. HEENT: + Lightheadedness, dizziness. Eyes: No visual loss, blurred vision, double vision or yellow sclerae. Ears, Nose, Throat: No hearing loss, sneezing, congestion, runny nose or sore throat. SKIN: No rash or itching, lesions, wounds. CARDIOVASCULAR: + Lightheadedness, dizziness, syncopal event. No chest pain, c hest pressure or chest discomfort, palpitations, edema, orthopnea. RESPIRATORY: No shortness of breath, cough or sputum, wheezing, hemoptysis. GASTROINTESTINAL: + Anorexia, nausea, diarrhea, abdominal cramping, bright red blood per rectum, no melanotic stools or emesis noted. GENITOURINARY: No dysuria, frequency, urgency or retention. NEUROLOGICAL: + Lightheadedness, dizziness, syncopal event. No paralysis, ataxia, numbness or tingling in the extremities, focal weakness, change in bowel or bladder control, seizure. MUSCULOSKELETAL: + muscle, back pain, joint pain or stiffness. HEMATOLOGIC: + anemia, bleeding or bruising. LYMPHATICS: No enlarged nodes. No history of splenectomy. PSYCHIATRIC: No history of depression or anxiety. ENDOCRINOLOGIC: No reports of sweating, cold or heat intolerance. No polyuria or polydipsia. ALLERGIES: No history of asthma, hives, eczema or rhinitis. Physical Exam Narrative Physical Examination: General: Awake, alert, oriented x 3 and cooperative, laying in the medical surgical bed, fatigued appearing. Skin: Normal color, normal turgor, no icterus, no cyanosis. HEENT: AT/NC, EOMI, PERRLA, mildly dry MM, no carotid bruits or JVD noted. Lungs: Mildly diminished, greater bases, appropriate effort, no rales, ronchi or wheezing. Heart: Regular rate and rhythm; no gallop, rub audible. Abdomen: Soft, mild left lower quadrant discomfort with deep palpation although no rebound or guarding, no marked distention noted although morbidly obese thus habitus makes evaluation difficult, mildly hyperactive bowel sounds, no obvious HSM but again difficult exam with habitus. Extremities: No cyanosis, clubbing, or edema. Neurological: Patient awake, alert, oriented as noted, cognitive function intact; pupils equally reactive to light and accommodation, cranial nerves II- XII grossly normal, moving all 4 extremities, no focal deficits, strength mildly global decrease secondary to acute presentation complaints Psychiatric: Affect appears mildly flat, fatigued, no acute evidence of depressive or anxiety feelings. Lab / Micro Data Result Diagrams: 04/17/22 15:15 04/17/22 15:15 Labs: Laboratory Results - last 24 hr 04/17/22 05:24: POC Glucose 133 H 04/17/22 12:08: POC Glucose 118 H 04/17/22 15:15: Sodium 144, Potassium 3.3 L, Chloride 111 H, Carbon Dioxide 29.0, Anion Gap 4 L, BUN 16, Creatinine 0.77, Estim Creat Clear Calc 39.50, Est GFR (MDRD) Af Amer 95, Est GFR (MDRD) Non-Af 79, BUN/Creatinine Ratio 20.8 H, Glucose 111 H, Calcium 8.0 L, Total Bilirubin 0.50, AST 23, ALT 30, Alkaline Phosphatase 71, Total Protein 6.0 L, Albumin 2.9 L, Globulin 3.1, Albumin/Globulin Ratio 0.9 04/17/22 15:15: WBC 6.2, RBC 3.61 L, Hgb 11.2 L, Hct 35.1 L, MCV 97.2, MCH 31.0, MCHC 31.9 L, RDW Std Deviation 48.1 H, RDW Coeff of Kg 13.5, Plt Count 207, MPV 9.1, Immature Gran % (Auto) 0.600, Neut % (Auto) 70.0, Lymph % (Auto) 17.6 L, [place] % (Auto) 9.4, Eos % (Auto) 2.1, Baso % (Auto) 0.3, Absolute Neuts (auto) 4.3, Absolute Lymphs (auto) 1.09, Nucleated RBC % 0 Assessment & Plan Assessment/Plan (1) Colitis: PLAN: She likely has ischemic colitis due to cramping and hypotension associated with passing out. She does not feel dizzy at this time. She does have some nausea without chest pain or shortness of breath. Due to her surgery and radiation she will likely have angiodysplasias of the anal colonic junction. The goal for her would be to not have any cramping. She seems relatively stable and I do not think she needs a colonoscopy at this time. I do not think she has an infectious colitis. Therefore would not recommend any antibiotics at this time. Unless she has a bowel movement and it shows fecal leukocytes and positive stool culture for enteric pathogens. (2) Diarrhea: PLAN: Chronic radiation enteritis is the technical term for the long-term damage that can result after radiation therapy for rectal cancer. It can lead to chronic diarrhea, incontinence, and bowel urgency. This can occur after treatment of other cancers that require radiation therapy to the abdominal area as well. These side effects can occur months, or even years, after therapy is completed. At this time she is constipated due to pain medication and swelling from is chemic colitis. She should actually be on a stool softener along with an antispasmodic. Charges/Coding Visit Charges Inpatient E&M: 80075 Init Hosp L3
[2022-04-17] MEDS: Potassium Chloride Oral Tablet 20 MEQ 40 MEQ PO (17:01)
[2022-04-17 17:35] LABS: Bedside Glucose 93 mg/dL (74-106)
[2022-04-17 21:00] VITALS: BP 118/67; PULSE 74; RESP 16; TEMP 36.9; O2SAT 97
[2022-04-17] MEDS: MELATONIN 3 MG TABLET PO (22:11)
[2022-04-17 23:51] LABS: Bedside Glucose 97 mg/dL (74-106)
[2022-04-18] VITALS (9 sets, daily range): BP systolic 108–129; BP diastolic 54–80; PULSE 73–87; RESP 16–18; TEMP 36.8–37.3; O2SAT 92–97
[2022-04-18] MEDS: 0.9% Normal Saline 1,000 ML 125 ML IV ×3 (05:24→22:39)
[2022-04-18 06:46] LABS: Bedside Glucose 113 mg/dL (74-106)
[2022-04-18 08:14] LABS: Absolute Lymphocyte Count 1.09 X10^3/uL (0.83-4.51); Absolute Neutrophil Count 4.4 X10^3/uL (2.0-7.7); Basophil# 0.04 X10^3/uL; Basophil% 0.6 % (0-1); Eosinophil# 0.17 X10^3/uL; Eosinophils% 2.7 % (0-5); Hematocrit 33.1 % (37-47); Hemoglobin 10.8 g/dL (12.0-15.0); Lymphocyte # 1.09 X10^3/ul (0.83-4.51); Lymphocyte % 17.1 % (19-41); Mean Corp Hgb Conc 32.6 g/dL (32-36); Mean Corpuscular Hgb 31.5 pg (27.0-32.0); Mean Corpuscular Volume 96.5 fL (81-99); Mean Platelet Vol. 8.9 fl (6.2-12.0); Monocyte% 9.4 % (0-10); NRBC Flagged by Analyzer 0 % (0-5); Neutrophil # 4.43 X10^3/uL (2.7-7.7); Neutrophil % 69.6 % (47-70); Platelet Count 170 K/mm3 (150-450); RBC Distribution Width CV 13.4 % (11.6-14.6); RBC Distribution Width SD 48.3 fl (35.1-43.9); Red Blood Count 3.43 M/mm3 (4.2-5.4); White Blood Count 6.4 K/mm3 (4.4-11.0)
[2022-04-18 08:33] LABS: Anion Gap 5 (5-15); BUN 12 mg/dL (7-18); Calcium,Total 7.8 mg/dL (8.5-10.1); Chloride 112 mmol/L (98-107); Creatinine, Serum 0.63 mg/dL (0.55-1.02); EST Glomerular Filtration Rate 99 mL/min (>60); Est Glom Filt Rate - Afr Amer 120 mL/min (>60); Glucose 111 mg/dL (74-106); Potassium 3.5 mmol/L (3.5-5.1); Sodium Level 143 mmol/L (136-145)
[2022-04-18 12:11] LABS: Bedside Glucose 120 mg/dL (74-106)
[2022-04-18 12:18] LABS: Erythrocyte Sedimentation Rate 24 mm/hr (0-30)
--- NOTE | 2022-04-18 13:23 | PN_ITS ---
Subjective Subjective She is not having pain and is tolerating a clear liquid diet. She still has not had a bowel movement. Also she has not had any lower GI bleeding. Objective Data Objective Data Vital Signs: Vital Signs Temp Pulse Resp BP Pulse Ox O2 Del Method 98.9 F 73 16 120/58 L 94 Room Air 04/18/22 09:00 04/18/22 10:10 04/18/22 09:00 04/18/22 10:10 04/18/22 09:00 04/18/22 10:00 Oxygen Delivery Method Room Air Weight: 231 lb Body Mass Index (BMI) 43.6 Intake & Output: Intake and Output for Last 24 Hours 04/16/22 04/17/22 04/18/22 23:59 23:59 23:59 Intake Total 2413.42 / 2413.42 1210 / 1210 Balance 2413.42 / 2413.42 1210 / 1210 Lab / Micro Data Result Diagrams: 04/18/22 08:08 04/18/22 08:08 Labs: Laboratory Results - last 24 hr 04/17/22 15:15: Sodium 144, Potassium 3.3 L, Chloride 111 H, Carbon Dioxide 29.0, Anion Gap 4 L, BUN 16, Creatinine 0.77, Estim Creat Clear Calc 39.50, Est GFR (MDRD) Af Amer 95, Est GFR (MDRD) Non-Af 79, BUN/Creatinine Ratio 20.8 H, Glucose 111 H, Calcium 8.0 L, Total Bilirubin 0.50, AST 23, ALT 30, Alkaline Phosphatase 71, Total Protein 6.0 L, Albumin 2.9 L, Globulin 3.1, Albumin/Globulin Ratio 0.9 04/17/22 15:15: WBC 6.2, RBC 3.61 L, Hgb 11.2 L, Hct 35.1 L, MCV 97.2, MCH 31.0, MCHC 31.9 L, RDW Std Deviation 48.1 H, RDW Coeff of Kg 13.5, Plt Count 207, MPV 9.1, Immature Gran % (Auto) 0.600, Neut % (Auto) 70.0, Lymph % (Auto) 17.6 L, [place] % (Auto) 9.4, Eos % (Auto) 2.1, Baso % (Auto) 0.3, Absolute Neuts (auto) 4.3, Absolute Lymphs (auto) 1.09, Nucleated RBC % 0 04/17/22 17:05: POC Glucose 93 04/17/22 23:27: POC Glucose 97 04/18/22 05:34: POC Glucose 113 H 04/18/22 08:08: WBC 6.4, RBC 3.43 L, Hgb 10.8 L, Hct 33.1 L, MCV 96.5, MCH 31.5, MCHC 32.6, RDW Std Deviation 48.3 H, RDW Coeff of Kg 13.4, Plt Count 170, MPV 8.9, Immature Gran % (Auto) 0.600, Neut % (Auto) 69.6, Lymph % (Auto) 17.1 L, [place] % (Auto) 9.4, Eos % (Auto) 2.7, Baso % (Auto) 0.6, Absolute Neuts (auto) 4.4, Absolute Lymphs (auto) 1.09, Nucleated RBC % 0 04/18/22 08:08: Sodium 143, Potassium 3.5, Chloride 112 H, Carbon Dioxide 26.0, Anion Gap 5, BUN 12, Creatinine 0.63, Estim Creat Clear Calc 39.50, Est GFR (MDRD) Af Amer 120, Est GFR (MDRD) Non-Af 99, BUN/Creatinine Ratio 19.0, Glucose 111 H, Calcium 7.8 L 04/18/22 08:08: ESR 24 04/18/22 08:08: C-React Prot Ext Range 21.70 H 04/18/22 11:49: POC Glucose 120 H Physical Exam Narrative Physical Examination: General: Awake, alert, oriented x 3 and cooperative, laying in the medical surgical bed, fatigued appearing. Skin: Normal color, normal turgor, no icterus, no cyanosis. HEENT: AT/NC, EOMI, PERRLA, mildly dry MM, no carotid bruits or JVD noted. Lungs: Mildly diminished, greater bases, appropriate effort, no rales, ronchi or wheezing. Heart: Regular rate and rhythm; no gallop, rub audible. Abdomen: Soft, mild left lower quadrant discomfort with deep palpation although no rebound or guarding, no marked distention noted although morbidly obese thus habitus makes evaluation difficult, mildly hyperactive bowel sounds, no obvious HSM but again difficult exam with habitus. Extremities: No cyanosis, clubbing, or edema. Neurological: Patient awake, alert, oriented as noted, cognitive function intact; pupils equally reactive to light and accommodation, cranial nerves II- XII grossly normal, moving all 4 extremities, no focal deficits, strength mildly global decrease secondary to acute presentation complaints Psychiatric: Affect appears mildly flat, fatigued, no acute evidence of depressive or anxiety feelings. Assessment & Plan Assessment/Plan (1) Colitis: PLAN: Likely ischemic colitis. She should have Colace 100 mg p.o. twice daily. Due to the fact that she has have intermittent diarrhea and diagnosed with ischemic colitis I did labs for some autoimmune disease. She can do the rest of the stool labs as an outpatient if she is able to tolerate a diet. Charges/Coding Visit Charges Inpatient E&M: 00741 Subs Hosp L2
[2022-04-18 17:25] LABS: Bedside Glucose 98 mg/dL (74-106)
--- NOTE | 2022-04-18 18:13 | PCM.PN.HOSP ---
Subjective Subjective Pain is improved and has not had a bowel movement as of this morning, was started on clear liquid diet. No bleeding. Not nauseous, dizziness improving. Objective Data Objective Data Vital Signs: Vital Signs Temp Pulse Resp BP Pulse Ox O2 Del Method 98.3 F 80 18 128/74 H 97 Room Air 04/18/22 17:38 04/18/22 17:38 04/18/22 17:38 04/18/22 17:38 04/18/22 17:38 04/18/22 17:38 Oxygen Delivery Method Room Air Weight: 104.78 kg Body Mass Index (BMI) 43.6 Intake & Output: Intake and Output for Last 24 Hours 04/16/22 04/17/22 04/18/22 23:59 23:59 23:59 Intake Total 2413.42 / 2413.42 3190 / 3190 Balance 2413.42 / 2413.42 3190 / 3190 Lab / Micro Data Result Diagrams: 04/18/22 08:08 04/18/22 08:08 Labs: Laboratory Results - last 24 hr 04/17/22 23:27: POC Glucose 97 04/18/22 05:34: POC Glucose 113 H 04/18/22 08:08: WBC 6.4, RBC 3.43 L, Hgb 10.8 L, Hct 33.1 L, MCV 96.5, MCH 31.5, MCHC 32.6, RDW Std Deviation 48.3 H, RDW Coeff of Kg 13.4, Plt Count 170, MPV 8.9, Immature Gran % (Auto) 0.600, Neut % (Auto) 69.6, Lymph % (Auto) 17.1 L, [place] % (Auto) 9.4, Eos % (Auto) 2.7, Baso % (Auto) 0.6, Absolute Neuts (auto) 4.4, Absolute Lymphs (auto) 1.09, Nucleated RBC % 0 04/18/22 08:08: Sodium 143, Potassium 3.5, Chloride 112 H, Carbon Dioxide 26.0, Anion Gap 5, BUN 12, Creatinine 0.63, Estim Creat Clear Calc 39.50, Est GFR (MDRD) Af Amer 120, Est GFR (MDRD) Non-Af 99, BUN/Creatinine Ratio 19.0, Glucose 111 H, Calcium 7.8 L 04/18/22 08:08: ESR 24 04/18/22 08:08: C-React Prot Ext Range 21.70 H 04/18/22 11:49: POC Glucose 120 H 04/18/22 16:36: POC Glucose 98 Physical Exam Const alert and no apparent distress Constitutional Narrative: Oriented HEENT normocephalic and head/scalp atraumatic Eyes Eyes Narrative: EOM grossly intact, anicteric Neck supple Resp normal respiratory effort and clear to auscultation bilaterally Cardio regular rate and regular rhythm GI soft to palpation and non-distended GI Narrative: Not overtly tender, no rebound, no guarding, no rigidity Extremity Extremity Narrative: No edema appreciated Neuro moves all extremities Neuro Narrative: No overt focal deficits appreciated Psych Psych Narrative: Cooperative Assessment & Plan Assessment/Plan (1) Colitis: PLAN: Plan #Acute GI bleed suspected secondary to ischemic colitis Pain improving, has not had further blood per rectum On clear liquids today If no diarrhea/concern for infection tomorrow will discontinue antibiotics GI following, if tolerating diet can likely be discharged tomorrow with outpatient follow-up #Syncopal event Vasovagal versus orthostatic given diarrhea and dehydration Repeat orthostats #History of rectal cancer Follows with Dr. Long Diagnosed 11/[address] and is status post low anterior resection 02/20/2015 and had 7 weeks of concomitant chemoradiation #DVT ppx: SCD's Jocelyne Tipton MD Charges/Coding Visit Charges OBSV E&M: 19122 Subsequent observation care L2
[2022-04-18] MEDS: MELATONIN 3 MG TABLET PO (22:52)
[2022-04-18] MEDS: Acetaminophen 325 MG Tablet 650 MG PO (22:52)
[2022-04-18 23:11] LABS: Bedside Glucose 146 mg/dL (74-106)
[2022-04-19] VITALS (12 sets, daily range): BP systolic 129–137; BP diastolic 63–92; PULSE 73–94; RESP 16–18; TEMP 36.9–37.2; O2SAT 85–94
[2022-04-19 06:30] LABS: Bedside Glucose 125 mg/dL (74-106)
[2022-04-19] MEDS: 0.9% Normal Saline 1,000 ML 125 ML IV ×2 (06:45→15:26)
[2022-04-19 06:49] LABS: Absolute Lymphocyte Count 1.17 X10^3/uL (0.83-4.51); Absolute Neutrophil Count 5.2 X10^3/uL (2.0-7.7); Basophil# 0.04 X10^3/uL; Basophil% 0.5 % (0-1); Eosinophil# 0.12 X10^3/uL; Eosinophils% 1.6 % (0-5); Hemoglobin 10.8 g/dL (12.0-15.0); Lymphocyte # 1.17 X10^3/ul (0.83-4.51); Mean Corp Hgb Conc 31.8 g/dL (32-36); Mean Corpuscular Hgb 30.8 pg (27.0-32.0); Mean Corpuscular Volume 96.9 fL (81-99); Mean Platelet Vol. 9.9 fl (6.2-12.0); Monocyte# 0.75 X10^3/uL; Monocyte% 10.3 % (0-10); NRBC Flagged by Analyzer 0 % (0-5); Neutrophil # 5.16 X10^3/uL (2.7-7.7); Neutrophil % 70.9 % (47-70); Platelet Count 201 K/mm3 (150-450); RBC Distribution Width CV 13.5 % (11.6-14.6); RBC Distribution Width SD 48.1 fl (35.1-43.9); Red Blood Count 3.51 M/mm3 (4.2-5.4); White Blood Count 7.3 K/mm3 (4.4-11.0)
[2022-04-19 07:14] LABS: Anion Gap 7 (5-15); BUN 10 mg/dL (7-18); BUN/Creat Ratio 16.5 RATIO (10-20); Chloride 112 mmol/L (98-107); Creatinine, Serum 0.61 mg/dL (0.55-1.02); EST Glomerular Filtration Rate 104 mL/min (>60); Est Glom Filt Rate - Afr Amer 125 mL/min (>60); Glucose 120 mg/dL (74-106); Potassium 3.1 mmol/L (3.5-5.1); Sodium Level 143 mmol/L (136-145)
[2022-04-19] MEDS: Potassium Chloride Oral Tablet 20 MEQ 60 MEQ PO (07:58)
[2022-04-19] MEDS: 0.9% Saline Lock 10 ML Syringe IV ×2 (08:08→18:21)
[2022-04-19] MEDS: Ondansetron 4 MG/2 ML Vial IV (08:08)
--- NOTE | 2022-04-19 09:08 | PCM.PN.HOSP ---
Subjective Subjective States her abdomen started hurting again as she is trying to eat more food, did have bloody bowel movement as well and an episode of fecal incontinence. Poor appetite, intermittent nausea. Also reports history of neuropathy and has had some tingling in her toes more so on the left side. Reports feeling blah. Objective Data Objective Data Vital Signs: Vital Signs Temp Pulse Resp BP Pulse Ox O2 Del Method 98.5 F 73 16 129/63 H 92 Room Air 04/19/22 03:48 04/19/22 03:48 04/19/22 03:48 04/19/22 03:48 04/19/22 03:48 04/19/22 03:48 Oxygen Delivery Method Room Air Weight: 107.5 kg Body Mass Index (BMI) 43.6 Intake & Output: Intake and Output for Last 24 Hours 04/17/22 04/18/22 04/19/22 23:59 23:59 23:59 Intake Total 2413.42 / 2413.42 4850 / 4850 1050 / 1050 Balance 2413.42 / 2413.42 4850 / 4850 1050 / 1050 Lab / Micro Data Result Diagrams: 04/19/22 05:42 04/19/22 05:42 Labs: Laboratory Results - last 24 hr 04/18/22 08:08: ESR 24 04/18/22 08:08: C-React Prot Ext Range 21.70 H 04/18/22 11:49: POC Glucose 120 H 04/18/22 16:36: POC Glucose 98 04/18/22 22:44: POC Glucose 146 H 04/19/22 05:12: POC Glucose 125 H 04/19/22 05:42: WBC 7.3, RBC 3.51 L, Hgb 10.8 L, Hct 34.0 L, MCV 96.9, MCH 30.8, MCHC 31.8 L, RDW Std Deviation 48.1 H, RDW Coeff of Kg 13.5, Plt Count 201, MPV 9.9, Immature Gran % (Auto) 0.700, Neut % (Auto) 70.9 H, Lymph % (Auto) 16.0 L, [place] % (Auto) 10.3 H, Eos % (Auto) 1.6, Baso % (Auto) 0.5, Absolute Neuts (auto) 5.2, Absolute Lymphs (auto) 1.17, Nucleated RBC % 0 04/19/22 05:42: Sodium 143, Potassium 3.1 L, Chloride 112 H, Carbon Dioxide 24.0, Anion Gap 7, BUN 10, Creatinine 0.61, Estim Creat Clear Calc 39.50, Est GFR (MDRD) Af Amer 125, Est GFR (MDRD) Non-Af 104, BUN/Creatinine Ratio 16.5, Glucose 120 H, Calcium 8.0 L, C-React Prot Ext Range 25.40 H Micro: Microbiology 04/19/22 02:05 Stool Stool Lactoferrin - Final Physical Exam Const alert Constitutional Narrative: Oriented HEENT normocephalic and head/scalp atraumatic Eyes Eyes Narrative: EOM grossly intact, anicteric Neck supple Resp normal respiratory effort and clear to auscultation bilaterally Cardio regular rate and regular rhythm GI soft to palpation GI Narrative: Tender diffusely without rebound, tenderness, or rigidity Extremity Extremity Narrative: No edema appreciated Neuro moves all extremities Neuro Narrative: No overt focal deficits appreciated Psych Psych Narrative: Cooperative Assessment & Plan Assessment/Plan (1) Colitis: PLAN: Plan #Acute GI bleed suspected secondary to ischemic colitis Pain improving, has not had further blood per rectum On clear liquids today If no diarrhea/concern for infection tomorrow will discontinue antibiotics GI following, if tolerating diet can likely be discharged tomorrow with outpatient follow-up 04/19: Attempted to advance diet and has been having abdominal pain, poor p.o., nausea, had another bloody bowel movement overnight. Hemoglobin thus far stable, fecal WBC lactoferrin was present, stool panel and C. difficile pending. Autoimmune labs pending. Given positive fecal lactoferrin will await stool cultures prior to deciding on further antibiotics. Appreciate further GI recommendations #Syncopal event Vasovagal versus orthostatic given diarrhea and dehydration Repeat orthostats 04/19: Orthostats negative, feels unwell overall but has not had any further episodes of syncope. #History of rectal cancer Follows with Dr. Long Diagnosed 11/[address] and is status post low anterior resection 02/20/2015 and had 7 weeks of concomitant chemoradiation #DVT ppx: SCD's Jocelyne Tipton MD Charges/Coding Visit Charges Inpatient E&M: 13486 Subs Hosp L2
[2022-04-19] MEDS: Insulin Lispro 100 UNIT/ML INSULN.PEN SC ×3 (11:35→23:25)
[2022-04-19] MEDS: Ensure Plus High Protein 120 ML LIQUID PO (11:35)
[2022-04-19 12:00] LABS: Bedside Glucose 160 mg/dL (74-106)
--- NOTE | 2022-04-19 14:35 | CASEMGMT ---
RN CM FABRIC WORKER LEADER CM to room to meet with patient for initial transition planning/care coordination assessment. RN MICHELLE introduced self and role at [facility].? Pt voices understanding and consents to assessment at this time.? Pt resting in bed in no distress at this time.? @ bedside. Pt is A/O at this time and answers all questions appropriately.?? Care providers, pharmacy, and demographics verified/updated at this time. PCP: JOSSELYN Frank Specialists: Dr Long-oncology, Dr Reddy-urology, Dr Dickson-DESIZING MACHINE BACK TENDER, Dr Garcias-pain mgmt Preferred Pharmacy: [email or web address] Insurance: [facility], [place] Prescription Benefit:? Yes LNOK: , [place]. Dtr, Beth. Son, Yehuda Living Arrangements: Lives w/ and Yehuda in 2-story home w/2 steps to enter. Bedroom and bath on 2nd floor. Bathroom also on main floor. Independent w/ADL's and IADL's. Transportation: Pt states drives self and states no transportation concerns at this time.? also drives. DME: ?States has the following DME:? functioning glucometer w/supplies, pulse ox. Has walker and W/C available, but does not use. ?Pt states no need for further DME at this time.? HHC/SNF: No hx of either. No needs identified. 6-clicks is 23, indicating pt can d/c home alone. No therapy eval is indicated. Pt wishes to return home and states has no concerns with going home at time of discharge.? CM to follow for home oxygen needs and any further discharge planning/needs.? Pt voices no further concerns/needs at this time.? Advised pt to ask for CM if any further questions/concerns/needs arise.? Voices understanding. PLAN: ?Home w/spousal support and discharge plans in place. Kvng QUINTERO RN, CM
[2022-04-19] MEDS: Albuterol 2.5 MG/3 ML VIAL.NEB. INHALATION (15:32)
--- NOTE | 2022-04-19 15:40 | RAD_ITS ---
INDICATION: Shortness of breath EXAMINATION/TECHNIQUE: X-RAY - XR Chest 1 View COMPARISON: None. FINDINGS: Streaky/patchy opacities in the left lower lobe. Tortuous and calcified thoracic aorta. The heart is borderline enlarged. There is bilateral hilar adenopathy. No pleural effusion or pneumothorax. Degenerative changes of the thoracic spine. RAD/Chest 1 View (Portable) IMPRESSION: Streaky/patchy opacities in the left lower lobe with bilateral hilar adenopathy. This is concerning for infection, however, it may be beneficial to obtain a Chest CT w/ contrast considering patient''s history of rectal cancer. Electronically Signed: Pasha Ren MD at 16:20 EST ,
--- NOTE | 2022-04-19 16:54 | PN_ITS ---
Subjective Subjective She is still feels very bloated. She had 5 or 6 loose bowel movements and admitted to some bloody bowel movements today. She is not eating much. Objective Data Objective Data Vital Signs: Vital Signs Temp Pulse Resp BP Pulse Ox O2 Del Method O2 Flow Rate 99 F 73 18 131/80 H 92 Room Air 5 04/19/22 15:38 04/19/22 15:38 04/19/22 15:38 04/19/22 15:38 04/19/22 15:38 04/19/22 15:38 04/19/22 15:32 Oxygen Flow Rate (L/min) 5 Oxygen Delivery Method Room Air Weight: 236 lb 15.951 oz Body Mass Index (BMI) 43.6 Intake & Output: Intake and Output for Last 24 Hours 04/17/22 04/18/22 04/19/22 23:59 23:59 23:59 Intake Total 2413.42 / 2413.42 4850 / 4850 2210 / 2210 Balance 2413.42 / 2413.42 4850 / 4850 2210 / 2210 Lab / Micro Data Result Diagrams: 04/19/22 05:42 04/19/22 05:42 Labs: Laboratory Results - last 24 hr 04/18/22 16:36: POC Glucose 98 04/18/22 22:44: POC Glucose 146 H 04/19/22 05:12: POC Glucose 125 H 04/19/22 05:42: WBC 7.3, RBC 3.51 L, Hgb 10.8 L, Hct 34.0 L, MCV 96.9, MCH 30.8, MCHC 31.8 L, RDW Std Deviation 48.1 H, RDW Coeff of Kg 13.5, Plt Count 201, MPV 9.9, Immature Gran % (Auto) 0.700, Neut % (Auto) 70.9 H, Lymph % (Auto) 16.0 L, [place] % (Auto) 10.3 H, Eos % (Auto) 1.6, Baso % (Auto) 0.5, Absolute Neuts (auto) 5.2, Absolute Lymphs (auto) 1.17, Nucleated RBC % 0 04/19/22 05:42: Sodium 143, Potassium 3.1 L, Chloride 112 H, Carbon Dioxide 24.0, Anion Gap 7, BUN 10, Creatinine 0.61, Estim Creat Clear Calc 39.50, Est GFR (MDRD) Af Amer 125, Est GFR (MDRD) Non-Af 104, BUN/Creatinine Ratio 16.5, Glucose 120 H, Calcium 8.0 L, C-React Prot Ext Range 25.40 H 04/19/22 11:32: POC Glucose 160 H Micro: Microbiology 04/18/22 02:05 Stool C. difficile DNA Amplification - Final 04/19/22 02:05 Stool Enteric Bacteriology - Final 04/19/22 02:05 Stool Stool Lactoferrin - Final Radiography Diagnostic Testing: Radiology Impression Chest X-Ray 04/19/22 15:40 IMPRESSION: Streaky/patchy opacities in the left lower lobe with bilateral hilar adenopathy. This is concerning for infection, however, it may be beneficial to obtain a Chest CT w/ contrast considering patient''s history of rectal cancer. Electronically Signed: Pasha Ren MD at 16:20 EST , Physical Exam Const alert Constitutional Narrative: Oriented HEENT normocephalic and head/scalp atraumatic Eyes Eyes Narrative: EOM grossly intact, anicteric Neck supple Resp normal respiratory effort and clear to auscultation bilaterally Cardio regular rate and regular rhythm GI soft to palpation GI Narrative: Tender diffusely without rebound, tenderness, or rigidity Extremity Extremity Narrative: No edema appreciated Neuro moves all extremities Neuro Narrative: No overt focal deficits appreciated Psych Psych Narrative: Cooperative Assessment & Plan Assessment/Plan (1) Colitis: PLAN: I am suspecting that her colitis is secondary to ischemic colitis. However with her frequent bowel movements and continued bloody diarrhea he also has to think about ulcerative colitis. Also differential diagnosis for lower GI bleed would be upper GI bleed with rapid transit. Therefore I will schedule her for an EGD and colonoscopy tomorrow. Charges/Coding Visit Charges Inpatient E&M: 43283 Subs Hosp L2
[2022-04-19] MEDS: Polyethylene Glycol 3350 BOWEL PREP PO (18:19)
[2022-04-19] MEDS: Bisacodyl 5 MG Tablet 20 MG PO (18:20)
[2022-04-19] MEDS: Metoclopramide 10 MG/2 ML Vial 5 MG IV ×2 (18:21→23:26)
[2022-04-19 19:15] LABS: Bedside Glucose 187 mg/dL (74-106)
[2022-04-20] VITALS (17 sets, daily range): BP systolic 105–154; BP diastolic 54–90; PULSE 58–85; RESP 16–96; TEMP 36.3–37.2; O2SAT 28–98; BMI 45.2
[2022-04-20 00:10] LABS: Bedside Glucose 180 mg/dL (74-106)
[2022-04-20] MEDS: 0.9% Normal Saline 1,000 ML 100 ML IV (00:42)
[2022-04-20] MEDS: Metoclopramide 10 MG/2 ML Vial 5 MG IV ×3 (05:08→23:09)
[2022-04-20 05:38] LABS: Absolute Lymphocyte Count 1.29 X10^3/uL (0.83-4.51); Absolute Neutrophil Count 4.5 X10^3/uL (2.0-7.7); Basophil# 0.04 X10^3/uL; Basophil% 0.6 % (0-1); Eosinophil# 0.14 X10^3/uL; Eosinophils% 2.1 % (0-5); Hematocrit 31.9 % (37-47); Hemoglobin 10.6 g/dL (12.0-15.0); Lymphocyte # 1.29 X10^3/ul (0.83-4.51); Lymphocyte % 19.1 % (19-41); Mean Corp Hgb Conc 33.2 g/dL (32-36); Mean Corpuscular Hgb 31.7 pg (27.0-32.0); Mean Corpuscular Volume 95.5 fL (81-99); Mean Platelet Vol. 9.3 fl (6.2-12.0); Monocyte# 0.73 X10^3/uL; Monocyte% 10.8 % (0-10); NRBC Flagged by Analyzer 0 % (0-5); Neutrophil # 4.49 X10^3/uL (2.7-7.7); Neutrophil % 66.7 % (47-70); Platelet Count 182 K/mm3 (150-450); RBC Distribution Width CV 13.9 % (11.6-14.6); RBC Distribution Width SD 48.6 fl (35.1-43.9); Red Blood Count 3.34 M/mm3 (4.2-5.4); White Blood Count 6.7 K/mm3 (4.4-11.0)
[2022-04-20 06:06] LABS: ALB/GLOB Ratio 0.8 RATIO (0.9-2.4); AST(SGOT) 53 U/L (15-37); Alanine Aminotransfer ALT/SGPT 69 U/L (13-56); Albumin, Serum 2.6 g/dL (3.2-5.0); Alkaline Phosphatase 101 U/L (45-117); Anion Gap 3 (5-15); BUN 7 mg/dL (7-18); Calcium,Total 8.2 mg/dL (8.5-10.1); Chloride 115 mmol/L (98-107); Creatinine, Serum 0.64 mg/dL (0.55-1.02); EST Glomerular Filtration Rate 97 mL/min (>60); Est Glom Filt Rate - Afr Amer 118 mL/min (>60); Globulin 3.4 g/dL (2.2-4.2); Glucose 122 mg/dL (74-106); Potassium 3.3 mmol/L (3.5-5.1); Sodium Level 144 mmol/L (136-145)
[2022-04-20 06:10] LABS: Bedside Glucose 123 mg/dL (74-106)
--- NOTE | 2022-04-20 08:14 | PN.HOSP_ITS ---
Subjective Subjective Still has some abdominal tenderness though feels it slightly better, has been having bowel movements and continues to have blood in her stool but feels that could be decreasing, minimal nausea but still poor p.o. intake. N.p.o. at midnight for possible scopes today Objective Data Objective Data Vital Signs: Vital Signs Temp Pulse Resp BP Pulse Ox O2 Del Method O2 Flow Rate 98.7 F 72 16 105/54 L 96 Nasal Cannula 2 04/20/22 02:30 04/20/22 02:30 04/20/22 02:30 04/20/22 02:30 04/20/22 02:30 04/20/22 02:30 04/20/22 02:30 Oxygen Flow Rate (L/min) 2 Oxygen Delivery Method Nasal Cannula Weight: 108.692 kg Body Mass Index (BMI) 45.2 Intake & Output: Intake and Output for Last 24 Hours 04/18/22 04/19/22 04/20/22 23:59 23:59 23:59 Intake Total 4850 / 4850 3620 / 3620 50 / 50 Balance 4850 / 4850 3620 / 3620 50 / 50 Lab / Micro Data Result Diagrams: 04/20/22 05:20 04/20/22 05:20 Labs: Laboratory Results - last 24 hr 04/19/22 11:32: POC Glucose 160 H 04/19/22 18:23: POC Glucose 187 H 04/19/22 23:23: POC Glucose 180 H 04/20/22 05:15: POC Glucose 123 H 04/20/22 05:20: WBC 6.7, RBC 3.34 L, Hgb 10.6 L, Hct 31.9 L, MCV 95.5, MCH 31.7, MCHC 33.2, RDW Std Deviation 48.6 H, RDW Coeff of Kg 13.9, Plt Count 182, MPV 9.3, Immature Gran % (Auto) 0.700, Neut % (Auto) 66.7, Lymph % (Auto) 19.1, [place] % (Auto) 10.8 H, Eos % (Auto) 2.1, Baso % (Auto) 0.6, Absolute Neuts (auto) 4.5, Absolute Lymphs (auto) 1.29, Nucleated RBC % 0 04/20/22 05:20: Sodium 144, Potassium 3.3 L, Chloride 115 H, Carbon Dioxide 26.0, Anion Gap 3 L, BUN 7, Creatinine 0.64, Estim Creat Clear Calc 39.50, Est GFR (MDRD) Af Amer 118, Est GFR (MDRD) Non-Af 97, BUN/Creatinine Ratio 11.0, Glucose 122 H, Calcium 8.2 L, Total Bilirubin 0.60, AST 53 H, ALT 69 H, Alkaline Phosphatase 101, C-React Prot Ext Range 41.20 H, Total Protein 6.0 L, Albumin 2.6 L, Globulin 3.4, Albumin/Globulin Ratio 0.8 L Micro: Microbiology 04/18/22 02:05 Stool C. difficile DNA Amplification - Final 04/19/22 02:05 Stool Enteric Bacteriology - Final 04/19/22 02:05 Stool Stool Lactoferrin - Final Radiography Diagnostic Testing: Radiology Impression Chest X-Ray 04/19/22 15:40 IMPRESSION: Streaky/patchy opacities in the left lower lobe with bilateral hilar adenopathy. This is concerning for infection, however, it may be beneficial to obtain a Chest CT w/ contrast considering patient''s history of rectal cancer. Electronically Signed: Pasha Ren MD at 16:20 EST , Physical Exam Const alert Constitutional Narrative: Oriented HEENT normocephalic and head/scalp atraumatic Eyes Eyes Narrative: EOM grossly intact, anicteric Neck supple Resp normal respiratory effort and clear to auscultation bilaterally Cardio regular rate and regular rhythm GI soft to palpation GI Narrative: Tender diffusely without rebound, tenderness, or rigidity Extremity Extremity Narrative: No edema appreciated Neuro moves all extremities Neuro Narrative: No overt focal deficits appreciated Psych Psych Narrative: Cooperative Assessment & Plan Assessment/Plan (1) Colitis: PLAN: Plan #Acute GI bleed suspected secondary to ischemic colitis Pain improving, has not had further blood per rectum On clear liquids today If no diarrhea/concern for infection tomorrow will discontinue antibiotics GI following, if tolerating diet can likely be discharged tomorrow with outpatient follow-up 04/19: Attempted to advance diet and has been having abdominal pain, poor p.o., nausea, had another bloody bowel movement overnight. Hemoglobin thus far stable, fecal WBC lactoferrin was present, stool panel and C. difficile pending. Autoimmune labs pending. Given positive fecal lactoferrin will await stool cultures prior to deciding on further antibiotics. Appreciate further GI recommendations 04/20: Given her continued bloody diarrhea she has been scheduled for an EGD and colonoscopy today. Further dispo pending results. Hemoglobin was stable today. ALT AST slightly up as his CRP. We will continue to trend these. Autoimmune work-up pending. Enteric C. difficile negative #Syncopal event Vasovagal versus orthostatic given diarrhea and dehydration Repeat orthostats 04/19: Orthostats negative, feels unwell overall but has not had any further episodes of syncope. #History of rectal cancer Follows with Dr. Long Diagnosed 11/[address] and is status post low anterior resection 02/20/2015 and had 7 weeks of concomitant chemoradiation #DVT ppx: SCD's Jocelyne Tipton MD Charges/Coding Visit Charges Inpatient E&M: 43288 Subs Hosp L2
[2022-04-20 08:18] LABS: Hemoglobin A1c 6.3 % (3.8-5.6)
--- NOTE | 2022-04-20 10:21 | NURSING ---
Emergency documentation
--- NOTE | 2022-04-20 12:00 | COLBX_PTH ---
PATIENT: DELMY ROLDAN LOC: [facility] U#:[id number] AGE/SX: 72/F ROOM: [facility] RE04/18/[address]: Dr. Jocelyne Tipton MD : 1950 BED: 1 DIS: 04/23/2022 SPEC #: [id number] RECD: 04/20/22 13:50 STATUS: TEJ BATES #: [id number] TONIO: 04/20/22 12:[address]: Pato Diaz DEPT: SURGICAL PATHOLOGY RECD BY: Ronald Florez ENTERED: 04/21/22 10:13 SP TYPE: COLON BX OTHR DR: MD Dr. Jocelyne Penaloza MD [facility] [place] Tissues: A - COLON BIOPSY B - Cecum, NOS C - Sigmoid colon biopsy Procedures: Trichrome (control) Special Stain Group II Surgery Specimen Level IV HEADER OPERATION: Colonoscopy, EGD ([facility] [place] PRE-OP DIAGNOSIS: Colitis, lower GI bleed TISSUE SUBMITTED: A ? Pylorus biopsy, B ? Cecal cap biopsy, C ? Sigmoid colon colitis biopsy MICROSCOPIC DIAGNOSIS A. Pylorus biopsy: Mild gastritis. See microscopic description and comment. B. Cecal cap, biopsy: Fragments of tubular adenoma. C. Sigmoid colon, biopsy: Fragments of colonic mucosa with changes suggestive of focal mucosal ischemia. See comment. AM:sabas 04/26/2022 COMMENT A. The results of immunohistochemistry for Helicobacter pylori will be reported separately ([id number]). C. Trichrome stain with matched control is used in the evaluation of the specimen and shows no thickening of basal plate. Case has been reviewed in consultation with Dr. Aviles who concurs with the above diagnosis. IDC:SJ MICROSCOPIC DESCRIPTION Slides are reviewed. A. The specimen shows fragments of gastric mucosa with chronic inflammatory cell infiltrates in the lamina propria consisting of lymphocytes and plasma cells, consistent with mild chronic gastritis. GROSS DESCRIPTION A - Received in fixative is one container labeled with the patient's name and designated pylorus biopsy. The specimen consists of two irregular fragments of light bird soft tissue that in aggregate measure 0.7 x 0.3 x 0.1 cm. The specimen is totally submitted in one cassette. B - Received in fixative is one container labeled with the patient's name and designated cecal cap biopsy. The specimen consists of multiple irregular fragments of light bird soft tissue that in aggregate measure 1 x 0.2 x 0.1 cm. The specimen is totally submitted in one cassette. C - Received in fixative is one container labeled with the patient's name and designated sigmoid colon biopsy. The specimen consists of two irregular fragments of light bird soft tissue that in aggregate measure 0.8 x 0.5 x 0.1 cm. The specimen is totally submitted in one cassette. / AM:sabas 04/21/2022 TC:1 CPT: 17595 x3, 54999
--- NOTE | 2022-04-20 12:00 | IMM_PTH ---
PATIENT: DELMY ROLDAN LOC: [facility] U#:[id number] AGE/SX: 72/F ROOM: [facility] RE04/18/[address]: Dr. Jocelyne Tipton MD : 1950 BED: 1 DIS: 04/23/2022 SPEC #: [id number] RECD: 04/21/22 09:58 STATUS: TEJ REQ #: [id number] TONIO: 04/20/22 12:[address]: Pato Diaz DEPT: IMMUNOHISTOCHEMISTRY RECD BY: Paula Veloz ENTERED: 04/21/22 09:59 SP TYPE: IMMUNO OTHR DR: MD Dr. Jocelyne Penaloza MD [facility] [place] Tissues: A - Pyloric antrum Procedures: H Pylori (initial) PHYSICIAN & INSTITUTION [place] [address] SPECIMEN INFORMATION: Tissue Source: A ? Pylorus biopsy Clinical Info: Colitis, lower GI bleed Specimen Number: [id number] CPT code: 04223 METHODOLOGY: Deparaffinized sections of prefer/formalin-fixed tissue or PAP/DQ stained slides are incubated with monoclonal/polyclonal antibodies/oligonucleotide probes. Localization is made via biotin free immunoperoxidase method. Appropriate controls are performed and reacted as expected. Results on target cell population are indicated in the following table: RESULTS: ANTIBODY / CLONE RESULT Block A H Pylori (polyclonal) negative These tests were developed and their performance characteristics determined by [facility]. They may not have been cleared or approved by the U.S. Food and Drug Administration. The FDA has determined that such clearance or approval is not necessary. The above immunohistochemical/dualISH markers are ordered and reviewed by the Pathologist. INTERPRETATION: [place] Pylorus, biopsy: Negative for Helicobacter pylori organisms. SJ:sabas 04/22/2022
[2022-04-20] MEDS: Lactated Ringers 1,000 ML 15 ML IV (12:27)
--- NOTE | 2022-04-20 12:33 | NURSING ---
Rm air trial sats dropped to 88%, 2lnc reapplied.
[2022-04-20] MEDS: Ipratropium/Albuterol Sulfate 3 ML AMPUL.NEB INHALATION (13:25)
--- NOTE | 2022-04-20 14:43 | OP.EGD_ITS ---
Patient Name: Annmarie Gregorio Procedure Date: 04/20/2022 12:17 PM Date of : 1950 Age: 71 Procedure: Upper GI endoscopy Indications: Epigastric abdominal pain Providers: Pato Diaz DO Medicines: Monitored Anesthesia Care Patient Profile: This is a 71 year old female. Refer to note in patient chart for documentation of history and physical. Complications: No immediate complications. Procedure: Pre-Anesthesia Assessment: - Prior to the procedure, a History and Physical was performed, and patient medications and allergies were reviewed. The patient is competent. The risks and benefits of the procedure and the sedation options and risks were discussed with the patient. All questions were answered and informed consent was obtained. Patient identification and proposed procedure were verified by the physician in the pre-procedure area. Mental Status Examination: alert and oriented. Airway Examination: normal oropharyngeal airway and neck mobility. Respiratory Examination: clear to auscultation. CV Examination: normal. Prophylactic Antibiotics: The patient does not require prophylactic antibiotics. Prior Anticoagulants: The patient has taken no previous anticoagulant or antiplatelet agents. ASA Grade Assessment: II - A patient with mild systemic disease. After reviewing the risks and benefits, the patient was deemed in satisfactory condition to undergo the procedure. The anesthesia plan was to use monitored anesthesia care (MAC). Immediately prior to administration of medications, the patient was re-assessed for adequacy to receive sedatives. The heart rate, respiratory rate, oxygen saturations, blood pressure, adequacy of pulmonary ventilation, and response to care were monitored throughout the procedure. The physical status of the patient was re-assessed after the procedure. After obtaining informed consent, the endoscope was passed under direct vision. Throughout the procedure, the patient's blood pressure, pulse, and oxygen saturations were monitored continuously. The colonoscope was introduced through the mouth, and advanced to the second part of duodenum. The upper GI endoscopy was accomplished without difficulty. The patient tolerated the procedure well. Scope In: 12:51:38 PM Scope Out: 12:56:04 PM Total Procedure Duration Time 0 hours 4 minutes 26 seconds Findings: No gross lesions were noted in the entire esophagus. A benign-appearing, intrinsic severe stenosis was found at the pylorus. This was non-traversed. A TTS dilator was passed through the scope. Dilation with a 15 mm pyloric balloon dilator was performed. The dilation site was examined following endoscope reinsertion and showed complete resolution of luminal narrowing. Biopsies were taken with a cold forceps for histology. Verification of patient identification for the specimen was done. Estimated blood loss was minimal. The second portion of the duodenum was normal. Impression: - No gross lesions in esophagus. - Gastric stenosis was found at the pylorus. Dilated. Biopsied. - Normal second portion of the duodenum. Recommendation: - [facility] care. - Advance diet as tolerated today. - Use metoclopramide 5 mg PO QID; 30 min AC and HS for 2 weeks. - Continue present medications. Procedure Code(s): --- Professional --- 88536, Esophagogastroduodenoscopy, flexible, transoral; with dilation of gastric/duodenal stricture(s) (eg, balloon, bougie) 04400, 59, Esophagogastroduodenoscopy, flexible, transoral; with biopsy, single or multiple CPT copyright 2017 [employer]. All rights reserved. The codes documented in this report are preliminary and upon sign maker review may be revised to meet current compliance requirements. Pato Diaz DO 04/20/2022 2:43:24 PM This report has been signed electronically. Number of Addenda: 0 Note Initiated On: 04/20/2022 12:17 PM
--- NOTE | 2022-04-20 14:43 | OP.CCLET_ITS ---
04/20/2022 Aleksandra Martin Re : Upper GI endoscopy procedure for Annmarie Martin This procedure was performed on Wednesday, April 20, 2022. My impressions and recommendations are as follows: Impressions : - No gross lesions in esophagus. - Gastric stenosis was found at the pylorus. Dilated. Biopsied. - Normal second portion of the duodenum. Recommendations : - [facility] patient to [facility] care. - Advance diet as tolerated today. - Use metoclopramide 5 mg PO QID; 30 min AC and HS for 2 weeks. - Continue present medications. My findings are described in the full procedure note, which is enclosed. If I can be of further assistance, please feel free to contact me at . Sincerely, Pato Diaz, 04/20/2022 2:43:24 PM This report has been signed electronically.
--- NOTE | 2022-04-20 14:52 | OP.CCLET_ITS ---
04/20/2022 Aleksandra Martin Re : Colonoscopy procedure for Annmarie Martin This procedure was performed on Wednesday, April 20, 2022. My impressions and recommendations are as follows: Impressions : - Diverticulosis in the recto-sigmoid colon, in the sigmoid colon and in the descending colon. - Segmental moderate inflammation was found in the recto-sigmoid colon, in the sigmoid colon and in the descending colon secondary to colitis. Biopsied. - One 5 mm polyp in the transverse colon, removed with a cold snare. Resected and retrieved. - One 22 mm polyp at the ileocecal valve. Biopsied. Recommendations : - Repeat colonoscopy in 3 months for surveillance. - Continue present medications. My findings are described in the full procedure note, which is enclosed. If I can be of further assistance, please feel free to contact me at . Sincerely, Pato Diaz, 04/20/2022 2:51:36 PM This report has been signed electronically.
--- NOTE | 2022-04-20 14:52 | OP.COLON_ITS ---
Patient Name: Annmarie Gregorio Procedure Date: 04/20/2022 12:56 PM Date of : 1950 Age: 71 Procedure: Colonoscopy Indications: Abdominal pain in the left lower quadrant, Hematochezia Providers: Pato Diaz DO Medicines: Monitored Anesthesia Care Patient Profile: This is a 71 year old female. Refer to note in patient chart for documentation of history and physical. Last Colonoscopy: 3 years ago. Complications: No immediate complications. Procedure: Pre-Anesthesia Assessment: - Prior to the procedure, a History and Physical was performed, and patient medications and allergies were reviewed. The patient is competent. The risks and benefits of the procedure and the sedation options and risks were discussed with the patient. All questions were answered and informed consent was obtained. Patient identification and proposed procedure were verified by the physician in the pre-procedure area. Mental Status Examination: alert and oriented. Airway Examination: normal oropharyngeal airway and neck mobility. Respiratory Examination: clear to auscultation. CV Examination: normal. Prophylactic Antibiotics: The patient does not require prophylactic antibiotics. Prior Anticoagulants: The patient has taken no previous anticoagulant or antiplatelet agents. ASA Grade Assessment: II - A patient with mild systemic disease. After reviewing the risks and benefits, the patient was deemed in satisfactory condition to undergo the procedure. The anesthesia plan was to use monitored anesthesia care (MAC). Immediately prior to administration of medications, the patient was re-assessed for adequacy to receive sedatives. The heart rate, respiratory rate, oxygen saturations, blood pressure, adequacy of pulmonary ventilation, and response to care were monitored throughout the procedure. The physical status of the patient was re-assessed after the procedure. After I obtained informed consent, the scope was passed under direct vision. Throughout the procedure, the patient's blood pressure, pulse, and oxygen saturations were monitored continuously. The colonoscope was introduced through the anus and advanced to the terminal ileum. The colonoscopy was performed without difficulty. The patient tolerated the procedure well. The quality of the bowel preparation was good. Scope In: 12:58:58 PM Scope Withdrawal Time 0 hours 8 minutes 57 seconds Scope Out: 1:11:22 PM Total Procedure Duration Time 0 hours 12 minutes 24 seconds Findings: The perianal and digital rectal examinations were normal. Multiple small and large-mouthed diverticula were found in the recto-sigmoid colon, sigmoid colon and descending colon. Segmental moderate inflammation characterized by congestion (edema), erosions and erythema was found in the recto-sigmoid colon, in the sigmoid colon and in the descending colon. Biopsies were taken with a cold forceps for histology. Verification of patient identification for the specimen was done. Estimated blood loss was minimal. A 5 mm polyp was found in the transverse colon. The polyp was sessile. The polyp was removed with a cold snare. Resection and retrieval were complete. Verification of patient identification for the specimen was done. Estimated blood loss was minimal. A 22 mm polyp was found in the ileocecal valve. The polyp was sessile. Biopsies were taken with a cold forceps for histology. Verification of patient identification for the specimen was done. Estimated blood loss was minimal. A benign-appearing, intrinsic moderate stenosis measuring 2 cm (in length) was found in the rectum and was traversed after dilation. A TTS dilator was passed through the scope. Dilation with a 15 mm colonic balloon dilator was performed. The dilation site was examined following endoscope reinsertion and showed moderate improvement in luminal narrowing. This was believed to be inflammatory stricture secondary to ischemic. eEstimated blood loss was minimal. Impression: - Diverticulosis in the recto-sigmoid colon, in the sigmoid colon and in the descending colon. - Segmental moderate inflammation was found in the recto-sigmoid colon, in the sigmoid colon and in the descending colon secondary to colitis. Biopsied. - One 5 mm polyp in the transverse colon, removed with a cold snare. Resected and retrieved. - One 22 mm polyp at the ileocecal valve. Biopsied. Recommendation: - Repeat colonoscopy in 3 months for surveillance. - Continue present medications. Procedure Code(s): --- Professional --- 96237, Colonoscopy, flexible; with removal of tumor(s), polyp(s), or other lesion(s) by snare technique 96700, Colonoscopy, flexible; with transendoscopic balloon dilation 02091, 59, Colonoscopy, flexible; with biopsy, single or multiple CPT copyright 2017 [employer]. All rights reserved. The codes documented in this report are preliminary and upon market sales manager review may be revised to meet current compliance requirements. Pato Diaz DO 04/20/2022 2:51:36 PM This report has been signed electronically. Number of Addenda: 0 Note Initiated On: 04/20/2022 12:56 PM
[2022-04-20 15:09] LABS: Giardia Lamblia, Stool EIA Negative (Negative)
[2022-04-20] MEDS: Insulin Lispro 100 UNIT/ML INSULN.PEN SC ×2 (17:40→23:11)
[2022-04-20 18:06] LABS: Bedside Glucose 200 mg/dL (74-106)
[2022-04-20] MEDS: MELATONIN 3 MG TABLET PO (23:16)
[2022-04-20 23:55] LABS: Bedside Glucose 174 mg/dL (74-106)
[2022-04-21] VITALS (19 sets, daily range): BP systolic 97–153; BP diastolic 55–79; PULSE 41–146; RESP 16–29; TEMP 36.4–36.8; O2SAT 92–95
[2022-04-21] MEDS: Metoclopramide 10 MG/2 ML Vial 5 MG IV ×3 (05:39→18:10)
[2022-04-21] MEDS: 0.9% Saline Lock 10 ML Syringe IV ×3 (05:45→11:12)
[2022-04-21 06:10] LABS: Bedside Glucose 146 mg/dL (74-106)
[2022-04-21 06:14] LABS: Absolute Lymphocyte Count 0.82 X10^3/uL (0.83-4.51); Absolute Neutrophil Count 5.2 X10^3/uL (2.0-7.7); Basophil# 0.01 X10^3/uL; Basophil% 0.2 % (0-1); Eosinophil# 0.01 X10^3/uL; Eosinophils% 0.2 % (0-5); Hematocrit 35.2 % (37-47); Hemoglobin 11.6 g/dL (12.0-15.0); Lymphocyte # 0.82 X10^3/ul (0.83-4.51); Lymphocyte % 12.6 % (19-41); Mean Corpuscular Hgb 32.2 pg (27.0-32.0); Mean Corpuscular Volume 97.8 fL (81-99); Mean Platelet Vol. 9.7 fl (6.2-12.0); Monocyte# 0.41 X10^3/uL; Monocyte% 6.3 % (0-10); NRBC Flagged by Analyzer 0.3 % (0-5); Neutrophil # 5.23 X10^3/uL (2.7-7.7); Neutrophil % 80.1 % (47-70); Platelet Count 206 K/mm3 (150-450); RBC Distribution Width CV 13.6 % (11.6-14.6); RBC Distribution Width SD 48.7 fl (35.1-43.9); White Blood Count 6.5 K/mm3 (4.4-11.0)
[2022-04-21 06:37] LABS: ALB/GLOB Ratio 0.8 RATIO (0.9-2.4); AST(SGOT) 47 U/L (15-37); Alanine Aminotransfer ALT/SGPT 72 U/L (13-56); Albumin, Serum 2.8 g/dL (3.2-5.0); Alkaline Phosphatase 112 U/L (45-117); Anion Gap 5 (5-15); BUN 8 mg/dL (7-18); BUN/Creat Ratio 11.9 RATIO (10-20); Calcium,Total 8.3 mg/dL (8.5-10.1); Chloride 110 mmol/L (98-107); Creatinine, Serum 0.67 mg/dL (0.55-1.02); EST Glomerular Filtration Rate 92 mL/min (>60); Est Glom Filt Rate - Afr Amer 111 mL/min (>60); Estimated Creatinine Clearance 38.94 ml/min; Globulin 3.7 g/dL (2.2-4.2); Glucose 163 mg/dL (74-106); Potassium 3.9 mmol/L (3.5-5.1); Protein, Total 6.5 g/dL (6.4-8.2); Sodium Level 142 mmol/L (136-145)
[2022-04-21] MEDS: Glucerna Shake 120 ML LIQUID PO ×2 (07:41→11:11)
--- NOTE | 2022-04-21 07:46 | CT_ITS ---
STUDY: CT CHEST WITH T WITHOUT CONTRAST REASON FOR EXAM: Female, 72 years old. Fever and cough, history of GI bleed RADIATION DOSAGE (If Supplied By Facility): CTDIvol = ( 13.85 ) mGy, DLP = ( 456.94 ) mGycm TECHNIQUE: Transaxial imaging was performed pre-and post contrast administration of IV 100mL Isovue-370. Multiplanar coronal and sagittal images were reformatted. Individualized dose optimization techniques were used for this CT. COMPARISON: 03/12/2020 FINDINGS: Chronic interstitial changes noted in both lung lima with development of free flowing bilateral pleural effusions and associated atelectasis. Pleural effusions and atelectasis are new since the previous study. No organized infiltrate but there is evidence of chronic bronchitis and mild interstitial edema No suspicious noncalcified mass or nodule. Normal-appearing thyroid gland. Scattered subcentimeter in short axis dimension, likely physiologic axillary, mediastinal and perihilar lymph nodes. Normal heart and pericardium. Coronary artery calcification is not seen. Normal enhanced and unenhanced pulmonary arteries. Normal aorta arch and descending thoracic aorta. There are multi-level degenerative changes of the thoracic spine. There is no demonstrated abnormality of the visualized upper abdomen. CT/Chest W/WO Contrast IMPRESSION: Mild interstitial edema with free flowing bilateral pleural effusions and bibasilar atelectasis suggesting CHF. Follow-up recommended to ensure resolution No organized infiltrate, but there is evidence of chronic bronchitis No suspicious adenopathy Degenerative bony changes Electronically Signed: Jaden Cartwright MD at 9:04 EST ,
--- NOTE | 2022-04-21 07:46 | PCM.PN.HOSP ---
Subjective Subjective Has remained somewhat short of breath over the past day, no cough. Abdomen feeling better, passing gas no bowel movement since yesterday. Of note his new sinus bradycardia between 30s to 50s awake with low voltage. Denies any dizziness, shortness of breath has not worsened since yesterday, no chest pain. Given that she is awake and there is no medication to account for the symptoms new onset labs, echo, CT, cardiology consult ordered Objective Data Objective Data Vital Signs: Vital Signs Temp Pulse Resp BP Pulse Ox O2 Del Method O2 Flow Rate 97.8 F 48 L 18 153/76 H 94 Nasal Cannula 2 04/21/22 05:36 04/21/22 05:36 04/21/22 05:36 04/21/22 05:36 04/21/22 07:40 04/21/22 07:40 04/21/22 07:40 FiO2 100 04/20/22 13:25 Oxygen Flow Rate (L/min) 2 Oxygen Delivery Method Nasal Cannula Weight: 106.4 kg Body Mass Index (BMI) 45.2 Intake & Output: Intake and Output for Last 24 Hours 04/19/22 04/20/22 04/21/22 23:59 23:59 23:59 Intake Total 3620 / 3620 2181.67 / 2181.67 50 / 50 Balance 3620 / 3620 2181.67 / 2181.67 50 / 50 Lab / Micro Data Result Diagrams: 04/21/22 05:25 04/21/22 05:25 Labs: Laboratory Results - last 24 hr 04/18/22 02:05: Stl Giardia Antigen Negative 04/20/22 05:20: Hemoglobin A1c 6.3 H 04/20/22 17:36: POC Glucose 200 H 04/20/22 23:11: POC Glucose 174 H 04/21/22 05:25: WBC 6.5, RBC 3.60 L, Hgb 11.6 L, Hct 35.2 L, MCV 97.8, MCH 32.2 H, MCHC 33.0, RDW Std Deviation 48.7 H, RDW Coeff of Kg 13.6, Plt Count 206, MPV 9.7, Immature Gran % (Auto) 0.600, Neut % (Auto) 80.1 H, Lymph % (Auto) 12.6 L, Mcleod % (Auto) 6.3, Eos % (Auto) 0.2, Baso % (Auto) 0.2, Absolute Neuts (auto) 5.2, Absolute Lymphs (auto) 0.82 L, Nucleated RBC % 0.3 04/21/22 05:25: Sodium 142, Potassium 3.9, Chloride 110 H, Carbon Dioxide 27.0, Anion Gap 5, BUN 8, Creatinine 0.67, Estim Creat Clear Calc 38.94, Est GFR (MDRD) Af Amer 111, Est GFR (MDRD) Non-Af 92, BUN/Creatinine Ratio 11.9, Glucose 163 H, Calcium 8.3 L, Total Bilirubin 0.60, AST 47 H, ALT 72 H, Alkaline Phosphatase 112, C-React Prot Ext Range 36.10 H, Total Protein 6.5, Albumin 2.8 L, Globulin 3.7, Albumin/Globulin Ratio 0.8 L 04/21/22 05:33: POC Glucose 146 H Micro: Microbiology 04/18/22 02:05 Stool C. difficile DNA Amplification - Final 04/19/22 02:05 Stool Enteric Bacteriology - Final 04/19/22 02:05 Stool Stool Lactoferrin - Final Physical Exam Const alert Constitutional Narrative: Oriented HEENT normocephalic and head/scalp atraumatic Eyes Eyes Narrative: EOM grossly intact, anicteric Neck supple Resp Resp Narrative: Mildly increased work of breathing, diminished at the bases possibly in part due to habitus Cardio Cardio Narrative: Sinus bradycardia GI soft to palpation GI Narrative: Tenderness is improved, no rebound, no guarding, no rigidity Extremity Extremity Narrative: No edema appreciated Neuro moves all extremities Neuro Narrative: No overt focal deficits appreciated Psych Psych Narrative: Cooperative Assessment & Plan Assessment/Plan (1) Colitis: PLAN: Plan #Sinus bradycardia Started this a.m., awake and between 30s to 50s EKG abnormal with sinus bradycardia in the 30s, does not appear to have a block, low voltage Did have syncopal event prior to coming in which was felt to be due to vasovagal versus orthostatic because of her diarrhea and dehydration though could have been symptomatic bradycardia Echo ordered, troponin, BNP and lab work-up Cardiology consulted No changes in mental status, no significant changes in breathing since the bradycardia began, no chest pain, no symptoms so she was not given atropine and has not required pacing at this time but will monitor closely and place on telemetry, blood pressure stable #Shortness of breath Unclear etiology Molecular respiratory panel ordered as she has been in the hospital for several days Chest x-ray had previously recommended considering a CT CT ordered BNP #Acute GI bleed suspected secondary to ischemic colitis Pain improving, has not had further blood per rectum On clear liquids today If no diarrhea/concern for infection tomorrow will discontinue antibiotics GI following, if tolerating diet can likely be discharged tomorrow with outpatient follow-up 04/19: Attempted to advance diet and has been having abdominal pain, poor p.o., nausea, had another bloody bowel movement overnight. Hemoglobin thus far stable, fecal WBC lactoferrin was present, stool panel and C. difficile pending. Autoimmune labs pending. Given positive fecal lactoferrin will await stool cultures prior to deciding on further antibiotics. Appreciate further GI recommendations 04/20: Given her continued bloody diarrhea she has been scheduled for an EGD and colonoscopy today. Further dispo pending results. Hemoglobin was stable today. ALT AST slightly up as his CRP. We will continue to trend these. Autoimmune work-up pending. Enteric C. difficile negative 04/21: Colonoscopy with moderate segmental inflammation in the rectosigmoid colon and 2 polyps, one was biopsied the other was resected. Will need repeat colonoscopy in 3 months for surveillance. 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 Has not had any further bloody bowel movements at this time is passing gas, no significant nausea, thus far tolerating diet #Syncopal event Vasovagal versus orthostatic given diarrhea and dehydration Repeat orthostats 04/19: Orthostats negative, feels unwell overall but has not had any further episodes of syncope. 04/21: See #1 #History of rectal cancer Follows with Dr. Long Diagnosed 11/[address] and is status post low anterior resection 02/20/2015 and had 7 weeks of concomitant chemoradiation #DVT ppx: SCD's Jocelyne Tipton MD Charges/Coding Visit Charges Inpatient E&M: 53699 Subs Hosp L2
--- NOTE | 2022-04-21 08:17 | ECHOD_ITS ---
Reason For Study: ABN EKG Procedure This was a 2D Doppler, Color Flow transthoracic echocardiogram. Exam performed portable in patient room. Left Ventricle Normal size and thickness. The left ventricular ejection fraction is 55 %. Diastolic function is indeterminate. Right Ventricle Normal right ventricle. Atria The left atrium is mildly enlarged. Normal right atrium. Mitral Valve Moderately severe (3+) mitral valve insufficiency. Tricuspid Valve Mild tricuspid valve insufficiency. Normal pulmonary artery pressure. Aortic Valve Normal aortic valve. Pulmonic Valve The pulmonic valve is not well visualized. Great Vessels Mildly dilated ascending aorta. Pericardium/Pleural No pericardial effusion. MMode/2D Measurements & Calculations Ao root diam: 3.9 cm LAV(MOD-sp4): 46.3 ml LVAd ap4: 24.6 cm2 LVLd ap4: 7.2 cm EDV(MOD-sp4): 69.8 ml EDV(sp4-el): 71.2 ml LVAs ap4: 15.7 cm2 LVLs ap4: 5.9 cm ESV(MOD-sp4): 36.2 ml ESV(sp4-el): 35.5 ml EF(MOD-sp4): 48.2 % EF(sp4-el): 50.2 % SV(MOD-sp4): 33.7 ml SV(sp4-el): 35.7 ml LA A4 area: 18.6 cm2 LA dimension(2D): 3.9 cm RA A4 area: 19.9 cm2 Time Measurements MV dec time: 0.24 sec Doppler Measurements & Calculations MV E max corbin: 119.6 cm/sec Lat Peak E' Corbin: 7.9 cm/sec Med Peak E' Corbin: 7.8 cm/sec MV A max corbin: 80.1 cm/sec E/E' lat: 15.2 E/E' med: 15.4 MV E/A: 1.5 MV V2 max: 124.2 cm/sec MV dec slope: 493.3 cm/sec2 Ao V2 max: 126.2 cm/sec MV max P.2 mmHg Ao max P.4 mmHg MV V2 mean: 49.2 cm/sec Ao V2 mean: 84.4 cm/sec MV mean P.5 mmHg Ao mean P.2 mmHg MV V2 VTI: 31.8 cm Ao V2 VTI: 32.0 cm AV (velocity ratio): 0.83 LV V1 max: 98.8 cm/sec PA V2 max: 81.0 cm/sec TR max corbin: 274.9 cm/sec LV V1 max P.9 mmHg PA V2 mean: 58.4 cm/sec TR max P.2 mmHg LV V1 mean P.3 mmHg LV V1 mean: 71.3 cm/sec LV V1 VTI: 26.6 cm ECHO/Echo Complete Interpretation Summary The left ventricular ejection fraction is 55 %. Diastolic function is indeterminate. Moderately severe (3+) mitral valve insufficiency. Mildly dilated ascending aorta. Ordering Physician: Jocelyne Tipton Referring Physician: ERICKSON DIEGO Performed By: Gianna Goodwin RCS
[2022-04-21 08:52] LABS: T4 Free Direct 1.11 ng/dL (0.76-1.46); Thyroid Stim Hormone (TSH) 1.62 uIU/mL (0.358-3.74)
[2022-04-21 09:05] LABS: BNP,B-Type NATRIURETIC PEPTIDE 490.2 pg/mL (0-100)
[2022-04-21 09:41] LABS: Troponin-I HS 5 pg/mL (3.0-54.0)
[2022-04-21] MEDS: Furosemide 20 MG/2 ML VIAL IV ×2 (09:59→18:13)
[2022-04-21] MEDS: Insulin Lispro 100 UNIT/ML INSULN.PEN SC ×2 (11:06→21:23)
--- NOTE | 2022-04-21 11:12 | PCM.CONS.C ---
Assessment & Plan Assessment/Plan (1) Sinus bradycardia: PLAN: Patient asymptomatic. Heart rate goes up with activity. Continue to monitor. (2) HTN (hypertension): PLAN: Monitor. (3) HLD (hyperlipidemia): PLAN: As per internal medicine. (4) Colitis: PLAN: As per surgery. HPI Consult Data Date of Consult: 04/21/22 HPI Narrative HPI Narrative: DELMY ROLDAN, is a 72 F who is being treated for GI bleed secondary to ischemic colitis. She also has history of sleep apnea. She was noticed on telemetry monitoring to have sinus bradycardia. Subsequently we have been consulted for evaluation of the same. Patient denies any previous history of heart disease. Denies any history of heart failure. No history of coronary artery disease. Denies any history of angina. For the past couple of days, she has been complaining of some shortness of breath while lying down. She was given Lasix this morning and feels better. [facility] Medical History (Updated 04/21/22 @ 11:[address] Ceasar Combs MD) Adenocarcinoma of rectum Cervical mass Chronic UTI Diabetes mellitus, type 2 GI bleed Hyperlipidemia Hypertension Hypothyroidism IBD (inflammatory bowel disease) Morbid obesity WICHO on CPAP Home Medications losartan 50 mg tablet (Cozaar) 50 mg PO QHS BP 05/11/17 [History Last Taken 04/15/22] simvastatin 20 mg tablet 20 mg PO QHS cholesterol 05/11/17 [History Last Taken 04/15/22] loperamide 2 mg capsule 2 mg PO DAILY PRN PRN Diarrhea 08/30/18 [History Last Taken 04/14/22] levothyroxine 50 mcg tablet 125 mcg PO DAILY thyroid 03/16/20 [History Last Taken 04/16/22] hydrochlorothiazide 12.5 mg capsule 12.5 mg PO DAILY bp 03/11/21 [History Last Taken 04/15/22] metformin 500 mg tablet 500 mg PO DAILY dm 03/11/21 [History Last Taken 04/15/22] dulaglutide 1.5 mg/0.5 mL subcutaneous pen injector (Trulicity) 1.5 mg subcut QWEEK dm 04/17/22 [History Last Taken 04/11/22] Allergy/AdvReac Type Severity Reaction Status Date / Time lisinopril AdvReac Other Verified 04/17/22 05:51 Family History (Updated 04/17/22 @ 02:[address] Laura Jack MD) Mother Skin cancer Heart disease Diabetes CVA (cerebral vascular accident) Father CVA (cerebral vascular accident) Grandfather Colon cancer Maternal grandfather Aunt Colon cancer Maternal aunt. Surgical History (Updated 04/17/22 @ 02:[address] Laura Jack MD) History of carpal tunnel release History of colon resection History of tubal ligation Hx of cholecystectomy Social History (Updated 04/17/22 @ 02:[address] Laura Jack MD) household members: spouse Smoking Status: Never smoker alcohol intake: current alcohol intake frequency: holidays/special occasions only substance use type: does not use Physical Exam Narrative Obese. Comfortable. No apparent distress. Heart sounds 1 and 2 are normal. Chest clear to auscultation bilaterally. Abdomen soft. Alert oriented x3. No ankle edema. Risk Stratification Risk Stratification Applicable: No Objective Data Vital Signs: Vital Signs Temp Pulse Resp BP Pulse Ox O2 Del Method O2 Flow Rate 97.9 F 54 L 16 152/79 H 93 Nasal Cannula 3 04/21/22 10:17 04/21/22 10:17 04/21/22 10:17 04/21/22 10:17 04/21/22 10:17 04/21/22 10:17 04/21/22 10:17 FiO2 100 04/20/22 13:25 Oxygen Flow Rate (L/min) 3 Oxygen Delivery Method Nasal Cannula Weight: 234 lb 9.149 oz Body Mass Index (BMI) 45.2 Intake & Output: Intake and Output for Last 24 Hours 04/19/22 04/20/22 04/21/22 23:59 23:59 23:59 Intake Total 3620 / 3620 2181.67 / 2181.67 100 / 100 Balance 3620 / 3620 2181.67 / 2181.67 100 / 100 Lab / Micro Data Result Diagrams: 04/21/22 05:25 04/21/22 05:25 Labs: Laboratory Results - last 24 hr 04/18/22 02:05: Stl Giardia Antigen Negative 04/20/22 17:36: POC Glucose 200 H 04/20/22 23:11: POC Glucose 174 H 04/21/22 05:25: WBC 6.5, RBC 3.60 L, Hgb 11.6 L, Hct 35.2 L, MCV 97.8, MCH 32.2 H, MCHC 33.0, RDW Std Deviation 48.7 H, RDW Coeff of Kg 13.6, Plt Count 206, MPV 9.7, Immature Gran % (Auto) 0.600, Neut % (Auto) 80.1 H, Lymph % (Auto) 12.6 L, Harper % (Auto) 6.3, Eos % (Auto) 0.2, Baso % (Auto) 0.2, Absolute Neuts (auto) 5.2, Absolute Lymphs (auto) 0.82 L, Nucleated RBC % 0.3 04/21/22 05:25: Sodium 142, Potassium 3.9, Chloride 110 H, Carbon Dioxide 27.0, Anion Gap 5, BUN 8, Creatinine 0.67, Estim Creat Clear Calc 38.94, Est GFR (MDRD) Af Amer 111, Est GFR (MDRD) Non-Af 92, BUN/Creatinine Ratio 11.9, Glucose 163 H, Calcium 8.3 L, Total Bilirubin 0.60, AST 47 H, ALT 72 H, Alkaline Phosphatase 112, C-React Prot Ext Range 36.10 H, Total Protein 6.5, Albumin 2.8 L, Globulin 3.7, Albumin/Globulin Ratio 0.8 L 04/21/22 05:25: Magnesium 2.0, Troponin I High Sens Cancelled, TSH 1.62, Free T4 1.11 04/21/22 05:25: B-Natriuretic Peptide 490.2 H 04/21/22 05:33: POC Glucose 146 H 04/21/22 09:13: Troponin I High Sens 5 Micro: Microbiology 04/21/22 09:00 Nasal Secretion SARS-CoV-2 & FLU Antigen (Rapid) - Final Rhythm Strip Rhythm Strip: Sinus Rhythm Cardiology Labs/Tests 04/21/22 05:25: WBC 6.5, RBC 3.60 L, Hgb 11.6 L, Hct 35.2 L, MCV 97.8, MCH 32.2 H, MCHC 33.0, Plt Count 206, MPV 9.7, Immature Gran % (Auto) 0.600, Neut % (Auto) 80.1 H, Lymph % (Auto) 12.6 L, Harper % (Auto) 6.3, Eos % (Auto) 0.2, Baso % (Auto) 0.2, Absolute Neuts (auto) 5.2, Nucleated RBC % 0.3 04/21/22 05:25: Sodium 142, Potassium 3.9, Chloride 110 H, Carbon Dioxide 27.0, Anion Gap 5, BUN 8, Creatinine 0.67, Est GFR (MDRD) Af Amer 111, Est GFR (MDRD) Non-Af 92, BUN/Creatinine Ratio 11.9, Glucose 163 H, Calcium 8.3 L, Total Bilirubin 0.60 04/21/22 05:25: Magnesium 2.0 04/21/22 05:25: B-Natriuretic Peptide 490.2 H Rhythm: EKG: Sinus bradycardia. No heart blocks. ECHO: Stress Test: Cardiac Cath: PCI: CT Surgery: Holter monitor: EPS: PPM: CXR: Chest CT Scan: Radiography Diagnostic Testing: Radiology Impression Chest CT 04/21/22 07:46 IMPRESSION: Mild interstitial edema with free flowing bilateral pleural effusions and bibasilar atelectasis suggesting CHF. Follow-up recommended to ensure resolution No organized infiltrate, but there is evidence of chronic bronchitis No suspicious adenopathy Degenerative bony changes Electronically Signed: Jaden Cartwright MD at 9:04 EST ,
[2022-04-21 11:41] LABS: Bedside Glucose 165 mg/dL (74-106)
[2022-04-21 15:50] LABS: Bedside Glucose 138 mg/dL (74-106)
--- NOTE | 2022-04-21 16:16 | PN_ITS ---
Subjective Subjective Patient underwent an EGD and colonoscopy yesterday for lower GI bleeding, abdominal pain and obstipation. On her upper endoscopy she was discovered to have a small hiatal hernia, erosive esophagitis and gastritis. Biopsies for H. pylori and chronic gastritis were pending. She also had a couple angiodysplasias that was treated endoscopically. She is eating a little bit better today but still complains of some bloating. She did have bile induced gastritis that was seen gastric antrum and gastric body. On her colonoscopy she was discovered to have ischemic colitis and areas of previous radiation treatment was seen. She has not had any more bleeding since the procedure. Biopsies were taken throughout the colon and a was a polyp was removed. She was also discovered to have an enlarged polyp involving the ileocecal valve that was biopsied. Objective Data Objective Data Vital Signs: Vital Signs Temp Pulse Resp BP Pulse Ox O2 Del Method O2 Flow Rate 98.2 F 71 16 142/79 H 94 Nasal Cannula 3 04/21/22 14:28 04/21/22 14:54 04/21/22 14:28 04/21/22 14:28 04/21/22 14:28 04/21/22 14:28 04/21/22 14:28 FiO2 100 04/20/22 13:25 Oxygen Flow Rate (L/min) 3 Oxygen Delivery Method Nasal Cannula Weight: 234 lb 9.149 oz Body Mass Index (BMI) 45.2 Intake & Output: Intake and Output for Last 24 Hours 04/19/22 04/20/22 04/21/22 23:59 23:59 23:59 Intake Total 3620 / 3620 2181.67 / 2181.67 400 / 400 Balance 3620 / 3620 2181.67 / 2181.67 400 / 400 Lab / Micro Data Result Diagrams: 04/21/22 05:25 04/21/22 05:25 Labs: Laboratory Results - last 24 hr 04/20/22 17:36: POC Glucose 200 H 04/20/22 23:11: POC Glucose 174 H 04/21/22 05:25: WBC 6.5, RBC 3.60 L, Hgb 11.6 L, Hct 35.2 L, MCV 97.8, MCH 32.2 H, MCHC 33.0, RDW Std Deviation 48.7 H, RDW Coeff of Kg 13.6, Plt Count 206, MPV 9.7, Immature Gran % (Auto) 0.600, Neut % (Auto) 80.1 H, Lymph % (Auto) 12.6 L, Coryell % (Auto) 6.3, Eos % (Auto) 0.2, Baso % (Auto) 0.2, Absolute Neuts (auto) 5.2, Absolute Lymphs (auto) 0.82 L, Nucleated RBC % 0.3 04/21/22 05:25: Sodium 142, Potassium 3.9, Chloride 110 H, Carbon Dioxide 27.0, Anion Gap 5, BUN 8, Creatinine 0.67, Estim Creat Clear Calc 38.94, Est GFR (MDRD) Af Amer 111, Est GFR (MDRD) Non-Af 92, BUN/Creatinine Ratio 11.9, Glucose 163 H, Calcium 8.3 L, Total Bilirubin 0.60, AST 47 H, ALT 72 H, Alkaline Phosphatase 112, C-React Prot Ext Range 36.10 H, Total Protein 6.5, Albumin 2.8 L, Globulin 3.7, Albumin/Globulin Ratio 0.8 L 04/21/22 05:25: Magnesium 2.0, Troponin I High Sens Cancelled, TSH 1.62, Free T4 1.11 04/21/22 05:25: B-Natriuretic Peptide 490.2 H 04/21/22 05:33: POC Glucose 146 H 04/21/22 09:13: Troponin I High Sens 5 04/21/22 11:00: POC Glucose 165 H 04/21/22 15:31: POC Glucose 138 H Micro: Microbiology 04/21/22 10:32 Mucosa - Nose Respiratory Panel (PCR) - Final 04/21/22 09:00 Nasal Secretion SARS-CoV-2 & FLU Antigen (Rapid) - Final 04/18/22 02:05 Stool C. difficile DNA Amplification - Final 04/19/22 02:05 Stool Enteric Bacteriology - Final 04/19/22 02:05 Stool Stool Lactoferrin - Final Radiography Diagnostic Testing: Radiology Impression Chest CT 04/21/22 07:46 IMPRESSION: Mild interstitial edema with free flowing bilateral pleural effusions and bibasilar atelectasis suggesting CHF. Follow-up recommended to ensure resolution No organized infiltrate, but there is evidence of chronic bronchitis No suspicious adenopathy Degenerative bony changes Electronically Signed: Jaden Cartwright MD at 9:04 EST , Echocardiogram 04/21/22 08:17 Interpretation Summary The left ventricular ejection fraction is 55 %. Diastolic function is indeterminate. Moderately severe (3+) mitral valve insufficiency. Mildly dilated ascending aorta. Ordering Physician: Jocelyne Tipton Referring Physician: ERICKSON DIEGO Performed By: Gianna Goodwin RCS Rhythm Strip Rhythm Strip: Sinus Rhythm Physical Exam Narrative Obese. Comfortable. No apparent distress. Heart sounds 1 and 2 are normal. Chest clear to auscultation bilaterally. Abdomen soft. Alert oriented x3. No ankle edema. Const alert General Appearance: cooperative Orientation / Consciousness: oriented to person HEENT hearing grossly normal bilaterally Head and Scalp: normal to inspection Face and Sinus: face symmetric Nose: external nose normal Mouth: oral and palatal mucosa normal Eyes conjunctivae normal General Eye: normal appearance of both eyes Neck full ROM General: normal visual inspection Lymph Lymphatic: no lymphadenopathy noted Chest inspection of chest normal and palpation of chest normal Chest: symmetrical chest wall rise Resp normal respiratory effort Effort and Inspection: able to speak in complete sentences Cardio regular rate GI non-distended Percussion: normal to percussion Rectal Exam: deferred Neuro Speech: speech normal Gait (Neuro): normal gait Assessment & Plan Assessment/Plan (1) Colitis: PLAN: Ischemic colitis involving the rectosigmoid junction anastamosis extending to the splenic flexure. (2) Polyp, colonic: PLAN: Flag colon polyp involving the ileocecal valve needs to be removed once medically stable. Charges/Coding Visit Charges Inpatient E&M: 70733 Subs Hosp L2
--- NOTE | 2022-04-21 16:35 | EKG12_ITS ---
Test Reason : RYTHUM CHANGE Blood Pressure : / mmHG Vent. Rate : 060 BPM Atrial Rate : 060 BPM P-R Int : 136 ms QRS Dur : 072 ms QT Int : 472 ms P-R-T Axes : 005 -10 017 degrees QTc Int : 472 ms Sinus rhythm with occasional Premature ventricular complexes Low voltage QRS Cannot rule out Inferior infarct , age undetermined Abnormal ECG Confirmed by DOYLE TRAN, MIHAI ([id number]), purchase request editor SHANTHI CIFUENTES ([id number]) on 04/28/2022 9:54:47 AM Referred By: SANA Confirmed By:MIHAI KWON MD
[2022-04-21 16:38] LABS: Calprotectin, Stool 348 ug/g (0-120)
--- NOTE | 2022-04-21 16:40 | NURSING ---
pt up to bathroom hr up to 130's returned pt to bed and hr remaining 130's dr notified and ekg ordered
--- NOTE | 2022-04-21 17:06 | NURSING ---
called report to [facility]
[2022-04-21] MEDS: Amiodarone 360 MG in Dextrose 5% Viaflo Bag 192.8 ML 33.3 MG CONT INF (19:06)
[2022-04-21 22:20] LABS: Bedside Glucose 176 mg/dL (74-106)
[2022-04-22] VITALS (13 sets, daily range): BP systolic 101–156; BP diastolic 50–83; PULSE 55–77; RESP 16–28; TEMP 36.6–36.9; O2SAT 91–95
[2022-04-22 06:50] LABS: Bedside Glucose 138 mg/dL (74-106)
[2022-04-22 06:52] LABS: Absolute Lymphocyte Count 1.44 X10^3/uL (0.83-4.51); Basophil# 0.03 X10^3/uL; Basophil% 0.4 % (0-1); Eosinophil# 0.15 X10^3/uL; Hematocrit 34.8 % (37-47); Hemoglobin 11.1 g/dL (12.0-15.0); Lymphocyte # 1.44 X10^3/ul (0.83-4.51); Lymphocyte % 19.4 % (19-41); Mean Corp Hgb Conc 31.9 g/dL (32-36); Mean Corpuscular Hgb 30.9 pg (27.0-32.0); Mean Corpuscular Volume 96.9 fL (81-99); Mean Platelet Vol. 9.4 fl (6.2-12.0); Monocyte# 0.72 X10^3/uL; Monocyte% 9.7 % (0-10); NRBC Flagged by Analyzer 0.5 % (0-5); Neutrophil # 4.99 X10^3/uL (2.7-7.7); Neutrophil % 67.4 % (47-70); Platelet Count 218 K/mm3 (150-450); RBC Distribution Width CV 14.1 % (11.6-14.6); RBC Distribution Width SD 49.1 fl (35.1-43.9); Red Blood Count 3.59 M/mm3 (4.2-5.4); White Blood Count 7.4 K/mm3 (4.4-11.0)
[2022-04-22 07:24] LABS: ALB/GLOB Ratio 0.8 RATIO (0.9-2.4); AST(SGOT) 29 U/L (15-37); Alanine Aminotransfer ALT/SGPT 66 U/L (13-56); Albumin, Serum 2.8 g/dL (3.2-5.0); Alkaline Phosphatase 101 U/L (45-117); Anion Gap 7 (5-15); BUN 16 mg/dL (7-18); BUN/Creat Ratio 21.9 RATIO (10-20); Calcium,Total 8.5 mg/dL (8.5-10.1); Chloride 109 mmol/L (98-107); Creatinine, Serum 0.73 mg/dL (0.55-1.02); EST Glomerular Filtration Rate 84 mL/min (>60); Est Glom Filt Rate - Afr Amer 101 mL/min (>60); Estimated Creatinine Clearance 38.94 ml/min; Globulin 3.5 g/dL (2.2-4.2); Glucose 133 mg/dL (74-106); Protein, Total 6.3 g/dL (6.4-8.2); Sodium Level 143 mmol/L (136-145)
--- NOTE | 2022-04-22 07:38 | EKG12_ITS ---
Test Reason : NEW A-FIB Blood Pressure : / mmHG Vent. Rate : 130 BPM Atrial Rate : 441 BPM P-R Int : 000 ms QRS Dur : 082 ms QT Int : 270 ms P-R-T Axes : 000 -10 -23 degrees QTc Int : 397 ms Atrial fibrillation Low voltage QRS Inferior infarct , age undetermined , cannot be excluded Nonspecific T wave abnormality Abnormal ECG Confirmed by DOYLE TRAN, MIHAI ([id number]), metropolitan editor SHANTHI CIFUENTES ([id number]) on 04/27/2022 10:46:37 AM Referred By: JHONNY Confirmed By:MIHAI KWON MD
[2022-04-22] MEDS: Furosemide 20 MG/2 ML VIAL IV (08:36)
[2022-04-22] MEDS: 0.9% Saline Lock 10 ML Syringe IV ×2 (08:36→22:47)
[2022-04-22] MEDS: Glucerna Shake 120 ML LIQUID PO ×3 (08:37→16:42)
[2022-04-22] MEDS: Potassium Chloride Oral Tablet 20 MEQ 40 MEQ PO (10:58)
[2022-04-22 11:21] LABS: Bedside Glucose 155 mg/dL (74-106)
--- NOTE | 2022-04-22 13:54 | PCM.PN.CARD ---
Subjective Subjective Shortness of breath much improved. Denies any chest pain. Atrial fibrillation with rapid ventricular response yesterday. Converted to normal sinus rhythm. Presently sinus bradycardia. Objective Data Vital Signs: Vital Signs Temp Pulse Resp BP Pulse Ox O2 Del Method O2 Flow Rate 97.8 F 62 20 H 136/80 H 93 Nasal Cannula 4 04/22/22 08:10 04/22/22 12:44 04/22/22 08:10 04/22/22 08:10 04/22/22 08:10 04/22/22 08:26 04/22/22 08:26 FiO2 100 04/20/22 13:25 Oxygen Flow Rate (L/min) 4 Oxygen Delivery Method Nasal Cannula Weight: 235 lb 7.259 oz Body Mass Index (BMI) 45.2 Intake & Output: Intake and Output for Last 24 Hours 04/20/22 04/21/22 04/22/22 23:59 23:59 23:59 Intake Total 2181.67 / 2181.67 541.65 / 541.65 450 / 450 Output Total 1200 / 1200 900 / 900 Balance 2181.67 / 2181.67 -658.35 / -658.35 -450 / -450 Lab / Micro Data Result Diagrams: 04/22/22 06:32 04/22/22 06:32 Labs: Laboratory Results - last 24 hr 04/18/22 02:05: Stool Calprotectin 348 H 04/21/22 15:31: POC Glucose 138 H 04/21/22 21:22: POC Glucose 176 H 04/22/22 06:31: POC Glucose 138 H 04/22/22 06:32: WBC 7.4, RBC 3.59 L, Hgb 11.1 L, Hct 34.8 L, MCV 96.9, MCH 30.9, MCHC 31.9 L, RDW Std Deviation 49.1 H, RDW Coeff of Kg 14.1, Plt Count 218, MPV 9.4, Immature Gran % (Auto) 1.100 H, Neut % (Auto) 67.4, Lymph % (Auto) 19.4, [place] % (Auto) 9.7, Eos % (Auto) 2.0, Baso % (Auto) 0.4, Absolute Neuts (auto) 5.0, Absolute Lymphs (auto) 1.44, Nucleated RBC % 0.5 04/22/22 06:32: Sodium 143, Potassium 3.0 L, Chloride 109 H, Carbon Dioxide 27.0, Anion Gap 7, BUN 16, Creatinine 0.73, Estim Creat Clear Calc 38.94, Est GFR (MDRD) Af Amer 101, Est GFR (MDRD) Non-Af 84, BUN/Creatinine Ratio 21.9 H, Glucose 133 H, Calcium 8.5, Total Bilirubin 0.50, AST 29, ALT 66 H, Alkaline Phosphatase 101, C-React Prot Ext Range 21.20 H, Total Protein 6.3 L, Albumin 2.8 L, Globulin 3.5, Albumin/Globulin Ratio 0.8 L 04/22/22 10:57: POC Glucose 155 H Micro: Microbiology 04/21/22 10:32 Mucosa - Nose Respiratory Panel (PCR) - Final 04/21/22 09:00 Nasal Secretion SARS-CoV-2 & FLU Antigen (Rapid) - Final Rhythm Strip Rhythm Strip: Sinus Rhythm Cardiology Labs/Tests 04/22/22 06:32: WBC 7.4, RBC 3.59 L, Hgb 11.1 L, Hct 34.8 L, MCV 96.9, MCH 30.9, MCHC 31.9 L, Plt Count 218, MPV 9.4, Immature Gran % (Auto) 1.100 H, Neut % (Auto) 67.4, Lymph % (Auto) 19.4, [place] % (Auto) 9.7, Eos % (Auto) 2.0, Baso % (Auto) 0.4, Absolute Neuts (auto) 5.0, Nucleated RBC % 0.5 04/22/22 06:32: Sodium 143, Potassium 3.0 L, Chloride 109 H, Carbon Dioxide 27.0, Anion Gap 7, BUN 16, Creatinine 0.73, Est GFR (MDRD) Af Amer 101, Est GFR (MDRD) Non-Af 84, BUN/Creatinine Ratio 21.9 H, Glucose 133 H, Calcium 8.5, Total Bilirubin 0.50 Rhythm: EKG: ECHO: Stress Test: Cardiac Cath: PCI: CT Surgery: Holter monitor: EPS: PPM: CXR: Chest CT Scan: Physical Exam Narrative Obese. Comfortable. No apparent distress. Heart sounds 1 and 2 are normal. Chest clear to auscultation bilaterally. Abdomen soft. Alert oriented x3. No ankle edema. Assessment & Plan Assessment/Plan (1) CHF (congestive heart failure): PLAN: Normal left ventricular systolic function. Likely secondary to fluid volume overload and mitral regurgitation. Continue diuresis. Patient symptomatically better. (2) Mitral regurgitation: PLAN: For diuresis and afterload reduction. (3) Transient atrial fibrillation: PLAN: Likely underlying sick sinus syndrome. Recommend Holter monitoring upon discharge home. Patient's CHADS2 vascular score is high and ideally she should be on anticoagulation but admitted with GI bleed. (4) Colitis: PLAN: As per GI.
[2022-04-22] MEDS: Losartan Potassium 50 MG Tablet PO (14:53)
[2022-04-22] MEDS: Furosemide 40 MG Tablet PO (14:53)
--- NOTE | 2022-04-22 16:12 | PN.HOSP_ITS ---
Subjective Subjective Still some shortness of breath, abdomen still feeling better than it was however. Objective Data Objective Data Vital Signs: Vital Signs Temp Pulse Resp BP Pulse Ox O2 Del Method O2 Flow Rate 98.4 F 65 18 146/75 H 93 Nasal Cannula 4 04/22/22 14:50 04/22/22 14:50 04/22/22 14:50 04/22/22 14:50 04/22/22 14:50 04/22/22 14:50 04/22/22 14:50 FiO2 100 04/20/22 13:25 Oxygen Flow Rate (L/min) 4 Oxygen Delivery Method Nasal Cannula Weight: 106.8 kg Body Mass Index (BMI) 45.2 Intake & Output: Intake and Output for Last 24 Hours 04/20/22 04/21/22 04/22/22 23:59 23:59 23:59 Intake Total 2181.67 / 2181.67 541.65 / 541.65 450 / 450 Output Total 1200 / 1200 900 / 900 Balance 2181.67 / 2181.67 -658.35 / -658.35 -450 / -450 Lab / Micro Data Result Diagrams: 04/22/22 06:32 04/22/22 06:32 Labs: Laboratory Results - last 24 hr 04/18/22 02:05: Stool Calprotectin 348 H 04/21/22 21:22: POC Glucose 176 H 04/22/22 06:31: POC Glucose 138 H 04/22/22 06:32: WBC 7.4, RBC 3.59 L, Hgb 11.1 L, Hct 34.8 L, MCV 96.9, MCH 30.9, MCHC 31.9 L, RDW Std Deviation 49.1 H, RDW Coeff of Kg 14.1, Plt Count 218, MPV 9.4, Immature Gran % (Auto) 1.100 H, Neut % (Auto) 67.4, Lymph % (Auto) 19.4, [place] % (Auto) 9.7, Eos % (Auto) 2.0, Baso % (Auto) 0.4, Absolute Neuts (auto) 5.0, Absolute Lymphs (auto) 1.44, Nucleated RBC % 0.5 04/22/22 06:32: Sodium 143, Potassium 3.0 L, Chloride 109 H, Carbon Dioxide 27.0, Anion Gap 7, BUN 16, Creatinine 0.73, Estim Creat Clear Calc 38.94, Est GFR (MDRD) Af Amer 101, Est GFR (MDRD) Non-Af 84, BUN/Creatinine Ratio 21.9 H, Glucose 133 H, Calcium 8.5, Total Bilirubin 0.50, AST 29, ALT 66 H, Alkaline Phosphatase 101, C-React Prot Ext Range 21.20 H, Total Protein 6.3 L, Albumin 2 .8 L, Globulin 3.5, Albumin/Globulin Ratio 0.8 L 04/22/22 10:57: POC Glucose 155 H Micro: Microbiology 04/21/22 10:32 Mucosa - Nose Respiratory Panel (PCR) - Final 04/21/22 09:00 Nasal Secretion SARS-CoV-2 & FLU Antigen (Rapid) - Final 04/18/22 02:05 Stool C. difficile DNA Amplification - Final 04/19/22 02:05 Stool Enteric Bacteriology - Final 04/19/22 02:05 Stool Stool Lactoferrin - Final Rhythm Strip Rhythm Strip: Sinus Rhythm Physical Exam Const alert Constitutional Narrative: Oriented HEENT normocephalic and head/scalp atraumatic Eyes Eyes Narrative: EOM grossly intact, anicteric Neck supple Resp Resp Narrative: Mildly increased work of breathing, diminished at the bases Cardio Cardio Narrative: Sinus bradycardia GI soft to palpation GI Narrative: Tenderness is improved, no rebound, no guarding, no rigidity Extremity Extremity Narrative: No edema appreciated Neuro moves all extremities Neuro Narrative: No overt focal deficits appreciated Psych Psych Narrative: Cooperative Assessment & Plan Assessment/Plan (1) Colitis: PLAN: Plan #Sinus bradycardia Started this a.m., awake and between 30s to 50s EKG abnormal with sinus bradycardia in the 30s, does not appear to have a block, low voltage Did have syncopal event prior to coming in which was felt to be due to vasovagal versus orthostatic because of her diarrhea and dehydration though could have been symptomatic bradycardia Echo ordered, troponin, BNP and lab work-up Cardiology consulted No changes in mental status, no significant changes in breathing since the bradycardia began, no chest pain, no symptoms so she was not given atropine and has not required pacing at this time but will monitor closely and place on telemetry, blood pressure stable 04/22: Went into A. fib with RVR yesterday and converted after briefly being on amiodarone. Will need Holter on discharge per cardiology. Continue Lasix to optimize breathing status. #Shortness of breath Unclear etiology Molecular respiratory panel ordered as she has been in the hospital for several days Chest x-ray had previously recommended considering a CT CT ordered BNP 04/22: Slightly improved, continue Lasix #Acute GI bleed suspected secondary to ischemic colitis Pain improving, has not had further blood per rectum On clear liquids today If no diarrhea/concern for infection tomorrow will discontinue antibiotics GI following, if tolerating diet can likely be discharged tomorrow with outpatient follow-up 04/19: Attempted to advance diet and has been having abdominal pain, poor p.o., nausea, had another bloody bowel movement overnight. Hemoglobin thus far stable, fecal WBC lactoferrin was present, stool panel and C. difficile pending. Autoimmune labs pending. Given positive fecal lactoferrin will await stool cultures prior to deciding on further antibiotics. Appreciate further GI recommendations 04/20: Given her continued bloody diarrhea she has been scheduled for an EGD and colonoscopy today. Further dispo pending results. Hemoglobin was stable today. ALT AST slightly up as his CRP. We will continue to trend these. Autoimmune work-up pending. Enteric C. difficile negative 04/21: Colonoscopy with moderate segmental inflammation in the rectosigmoid colon and 2 polyps, one was biopsied the other was resected. Will need repeat colonoscopy in 3 months for surveillance. 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 Has not had any further bloody bowel movements at this time is passing gas, no significa nt nausea, thus far tolerating diet 04/22: Ideally should be on anticoagulation with atrial fibrillation but given GI bleed likely not a great candidate at this time #Syncopal event Vasovagal versus orthostatic given diarrhea and dehydration Repeat orthostats 04/19: Orthostats negative, feels unwell overall but has not had any further episodes of syncope. 04/21: See #1 04/22 will need a Holter on discharge #History of rectal cancer Follows with Dr. Long Diagnosed 11/[address] and is status post low anterior resection 02/20/2015 and had 7 weeks of concomitant chemoradiation #DVT ppx: SCD's Jocelyne Tipton MD Charges/Coding Visit Charges Inpatient E&M: 13395 Subs Hosp L2
[2022-04-22] MEDS: Insulin Lispro 100 UNIT/ML INSULN.PEN SC ×2 (16:43→21:37)
[2022-04-22 17:05] LABS: Bedside Glucose 157 mg/dL (74-106)
[2022-04-22] MEDS: Atorvastatin Calcium 10 MG Tablet PO (21:30)
[2022-04-22 22:06] LABS: Albumin 2.8 g/dL (2.9-4.4); Alpha-1-Globulins 0.3 g/dL (0.0-0.4); Alpha-2-Globulins 0.6 g/dL (0.4-1.0); Anti-Centromere B Ab <0.2 AI (0.0-0.9); Anti-Chromatin <0.2 AI (0.0-0.9); Anti-Jo <0.2 AI (0.0-0.9); Anti-Scleroderma-70 AB <0.2 AI (0.0-0.9); Beef <0.10 kU/L (Class 0); Corn <0.10 kU/L (Class 0); Cytoplasmic Ab (C-ANCA) <1:20 titer (Neg:<1:20); Egg, Whole <0.10 kU/L (Class 0); Gamma Globulin 0.8 g/dL (0.4-1.8); Immunoglobulin A 186 mg/dL (87-352); Immunoglobulin E 23 IU/mL (6-495); Immunoglobulin G 846 mg/dL (586-1602); Immunoglobulin M 74 mg/dL (26-217); Milk (Cow) <0.10 kU/L (Class 0); PROEL- TOTAL PROTEIN 5.4 g/dL (6.0-8.5); Peanut <0.10 kU/L (Class 0); Pork <0.10 kU/L (Class 0); RNP Ab <0.2 AI (0.0-0.9); SJOGREN'S Anti-SS-A test < 0.2 AI (0.0-0.9); SJOGREN'S Anti-SS-B test < 0.2 AI (0.0-0.9); Smith Ab <0.2 AI (0.0-0.9); Soybean <0.10 kU/L (Class 0); Wheat <0.10 kU/L (Class 0)
[2022-04-22 22:49] LABS: Anti-dsDNA Ab <1 IU/mL (0-9); Chocolate <0.10 kU/L (Class 0); Perinuclear Ab (P-ANCA) <1:20 titer (Neg:<1:20)
[2022-04-22 23:05] LABS: Bedside Glucose 168 mg/dL (74-106)
[2022-04-23] VITALS (9 sets, daily range): BP systolic 129–156; BP diastolic 80–88; PULSE 58–78; RESP 16–18; TEMP 36.8–36.9; O2SAT 87–95
[2022-04-23] MEDS: Levothyroxine 125 MCG Tablet PO (06:11)
[2022-04-23 07:10] LABS: Bedside Glucose 135 mg/dL (74-106)
[2022-04-23 07:35] LABS: Absolute Lymphocyte Count 1.13 X10^3/uL (0.83-4.51); Absolute Neutrophil Count 3.2 X10^3/uL (2.0-7.7); Basophil# 0.05 X10^3/uL; Basophil% 0.9 % (0-1); Eosinophil# 0.27 X10^3/uL; Hematocrit 37.3 % (37-47); Hemoglobin 12.1 g/dL (12.0-15.0); Lymphocyte # 1.13 X10^3/ul (0.83-4.51); Lymphocyte % 20.9 % (19-41); Mean Corp Hgb Conc 32.4 g/dL (32-36); Mean Corpuscular Hgb 31.2 pg (27.0-32.0); Mean Corpuscular Volume 96.1 fL (81-99); Mean Platelet Vol. 9.5 fl (6.2-12.0); Monocyte# 0.69 X10^3/uL; Monocyte% 12.8 % (0-10); NRBC Flagged by Analyzer 0.4 % (0-5); Neutrophil % 59.3 % (47-70); Platelet Count 232 K/mm3 (150-450); RBC Distribution Width CV 13.8 % (11.6-14.6); RBC Distribution Width SD 47.8 fl (35.1-43.9); Red Blood Count 3.88 M/mm3 (4.2-5.4); White Blood Count 5.4 K/mm3 (4.4-11.0)
[2022-04-23 08:09] LABS: ALB/GLOB Ratio 0.8 RATIO (0.9-2.4); AST(SGOT) 17 U/L (15-37); Alanine Aminotransfer ALT/SGPT 53 U/L (13-56); Albumin, Serum 2.8 g/dL (3.2-5.0); Alkaline Phosphatase 101 U/L (45-117); Anion Gap 8 (5-15); BUN 15 mg/dL (7-18); BUN/Creat Ratio 25.1 RATIO (10-20); Calcium,Total 8.7 mg/dL (8.5-10.1); Chloride 105 mmol/L (98-107); EST Glomerular Filtration Rate 105 mL/min (>60); Est Glom Filt Rate - Afr Amer 128 mL/min (>60); Estimated Creatinine Clearance 38.94 ml/min; Globulin 3.7 g/dL (2.2-4.2); Glucose 137 mg/dL (74-106); Magnesium 1.9 mg/dL (1.6-2.6); Potassium 2.9 mmol/L (3.5-5.1); Protein, Total 6.5 g/dL (6.4-8.2); Sodium Level 142 mmol/L (136-145)
[2022-04-23] MEDS: Glucerna Shake 120 ML LIQUID PO ×2 (09:36→12:08)
[2022-04-23] MEDS: Potassium Chloride Oral Tablet 20 MEQ 40 MEQ PO (09:36)
[2022-04-23] MEDS: Potassium Chloride Oral Tablet 20 MEQ 60 MEQ PO (09:36)
[2022-04-23] MEDS: Furosemide 40 MG Tablet PO (09:37)
[2022-04-23] MEDS: Losartan Potassium 50 MG Tablet PO (09:37)
--- NOTE | 2022-04-23 11:44 | PN.CARD_ITS ---
Subjective Subjective This is a 72-year-old white female who appears to be resting comfortably at the moment with no acute complaints of ongoing chest discomfort, stating her breathing has improved overall, and no ongoing complaints of palpitations or rapid heart rates. Objective Data Vital Signs: Vital Signs Temp Pulse Resp BP Pulse Ox O2 Del Method O2 Flow Rate 98.4 F 72 16 129/88 H 93 Nasal Cannula 3 04/23/22 09:33 04/23/22 09:33 04/23/22 09:33 04/23/22 09:33 04/23/22 09:33 04/23/22 09:33 04/23/22 09:33 FiO2 100 04/20/22 13:25 Oxygen Flow Rate (L/min) 3 Oxygen Delivery Method Nasal Cannula Weight: 231 lb 0.711 oz Body Mass Index (BMI) 45.2 Intake & Output: Intake and Output for Last 24 Hours 04/21/22 04/22/22 04/23/22 23:59 23:59 23:59 Intake Total 541.65 / 541.65 975 / 975 0 / 0 Output Total 1200 / 1200 2400 / 2400 1999 Balance -658.35 / -658.35 -1425 / -1425 -1999 Lab / Micro Data Result Diagrams: 04/23/22 06:48 04/23/22 06:48 Labs: Laboratory Results - last 24 hr 04/19/22 05:42: Total Protein (PEP) 5.4 L, Globulin 2.6, Stl Giardia Antigen Cancelled, IgG 846, IgA 186, IgM 74, IgE 23, Immunofixation Screen Comment, Albumin (CELESTINO) 2.8 L, Albumin/Globulin (CELESTINO) 1.1, Xvfkb-3-Pqnqdffrh CELESTINO 0.3, Wnrwh-1-Mbkcswzay CELESTINO 0.6, Beta-Globulins (CELESTINO) 0.9, Gamma Globulins (CELESTINO) 0.8, CELESTINO M-Eleazar , CELESTINO Comments Comment, c-ANCA Antibody <1:20, Atypical p-ANCA <1:20, p-ANCA Antibody <1:20 04/19/22 05:42: Seafood Allergens Negative, Beef Allergen <0.10, Chocolate Allergen <0.10, Mobile Allergen <0.10, Cow's Milk Allergen <0.10, Egg Whole Allergen <0.10, Peanut Allergen <0.10, Pork Allergen <0.10, Soybean Allergen <0.10, Wheat Allergen <0.10, RAST Comment Comment, Stool Calprotectin Cancelled, REYNALDO-1 Antibody <0.2, SS-A/Ro IgG Antibody < 0.2, SS-B/La IgG Antibody < 0.2, Sm (Wong) Antibody <0.2, HOT HEADER OPERATOR Antibody <0.2, Scl-70 Scleroderma Ab <0.2, Double Strand DNA Ab <1, Centromere B Antibody <0.2 04/22/22 16:31: POC Glucose 157 H 04/22/22 21:36: POC Glucose 168 H 04/23/22 06:26: POC Glucose 135 H 04/23/22 06:48: WBC 5.4, RBC 3.88 L, Hgb 12.1, Hct 37.3, MCV 96.1, MCH 31.2, MCHC 32.4, RDW Std Deviation 47.8 H, RDW Coeff of Kg 13.8, Plt Count 232, MPV 9.5, Immature Gran % (Auto) 1.100 H, Neut % (Auto) 59.3, Lymph % (Auto) 20.9, [place] % (Auto) 12.8 H, Eos % (Auto) 5.0, Baso % (Auto) 0.9, Absolute Neuts (auto) 3.2, Absolute Lymphs (auto) 1.13, Nucleated RBC % 0.4 04/23/22 06:48: Sodium 142, Potassium 2.9 L, Chloride 105, Carbon Dioxide 29.0, Anion Gap 8, BUN 15, Creatinine 0.60, Estim Creat Clear Calc 38.94, Est GFR (MDRD) Af Amer 128, Est GFR (MDRD) Non-Af 105, BUN/Creatinine Ratio 25.1 H, Glucose 137 H, Calcium 8.7, Magnesium 1.9, Total Bilirubin 0.60, AST 17, ALT 53, Alkaline Phosphatase 101, Total Protein 6.5, Albumin 2.8 L, Globulin 3.7, Albumin/Globulin Ratio 0.8 L Rhythm Strip Rhythm Strip: Sinus Rhythm Cardiology Labs/Tests 04/23/22 06:48: WBC 5.4, RBC 3.88 L, Hgb 12.1, Hct 37.3, MCV 96.1, MCH 31.2, MCHC 32.4, Plt Count 232, MPV 9.5, Immature Gran % (Auto) 1.100 H, Neut % (Auto) 59.3, Lymph % (Auto) 20.9, [place] % (Auto) 12.8 H, Eos % (Auto) 5.0, Baso % (Auto) 0.9, Absolute Neuts (auto) 3.2, Nucleated RBC % 0.4 04/23/22 06:48: Sodium 142, Potassium 2.9 L, Chloride 105, Carbon Dioxide 29.0, Anion Gap 8, BUN 15, Creatinine 0.60, Est GFR (MDRD) Af Amer 128, Est GFR (MDRD) Non-Af 105, BUN/Creatinine Ratio 25.1 H, Glucose 137 H, Calcium 8.7, Magnesium 1.9, Total Bilirubin 0.60 Rhythm: Sinus rhythm; occasional PVCs ECHO: 04-21-2022 Interpretation Summary The left ventricular ejection fraction is 55 %. Diastolic function is indeterminate. Moderately severe (3+) mitral valve insufficiency. Mildly dilated ascending aorta. ? Physical Exam Const alert, oriented x3 and no apparent distress Orientation / Consciousness: awake HEENT normocephalic, head/scalp atraumatic and hearing grossly normal bilaterally Eyes PERRL, EOMs intact bilaterally, conjunctivae normal and no scleral icterus Neck full ROM, supple and no JVD Carotids: normal carotid upstroke Resp normal respiratory effort and clear to auscultation bilaterally Cardio regular rate, regular rhythm, S1 normal heart sound and S2 normal heart sound GI normal to inspection, nondistended, normoactive bowel sounds Extremity no pedal edema Skin no rashes or lesions noted Psych mental status grossly normal Assessment & Plan Assessment/Plan (1) Sinus bradycardia: PLAN: The patient was evaluated for sinus bradycardia by Dr. Combs. She is undergone evaluation with cardiac rhythm monitoring and a transthoracic echocardiogram. It appears that she demonstrated evidence of sinus bradycardia as well as transient atrial fibrillation with return to sinus rhythm. Her echocardiogram report was reviewed-as noted. At the present time she appears to be stable with her rate and her rhythm. Based upon concerns of her sinus bradycardia she has not been on rate limiting medication at this time. It also appears based upon concern of her gastrointestinal related issues that she has not been on anticoagulant therapy. (2) Transient atrial fibrillation: PLAN: The patient was reported as having transient/paroxysmal atrial fibrillation. She is currently in sinus rhythm. As noted above based upon her issues of sinus bradycardia and her gastrointestinal related issues she is currently not on rate limiting therapy or anticoagulant therapy. (3) Mitral regurgitation: PLAN: The patient was found on echocardiogram to have mitral valve regurgitation. She will need this followed over time by noninvasive studies to assist with further evaluation and care. (4) CHF (congestive heart failure): PLAN: According to the previous cardiovascular consultation note/progress note there were concerns that her CHF was related to volume overload and/or contribution from her mitral regurgitation and potentially her transient atrial dysrhythmia. She appears to be symptomatically improved at this time. Her examination does not suggest ongoing acute CHF with respect to associated pulmonary findings. She will continue volume support with diuretic therapy as deemed appropriate. (5) Syncope: QUALIFIERS: Syncope type: unspecified Qualified Code(s): R55 - Syncope and collapse PLAN: The patient was initially reported as having a syncopal event. There were concerns this was related to concerns of her gastrointestinal bleeding process and subsequent adverse hemodynamic events. She has had no recurrent events. (6) GI bleed: PLAN: The patient has undergone evaluation for her GI bleeding process. Based upon her GI bleeding process she is not on anticoagulant therapy. (7) HLD (hyperlipidemia): PLAN: The patient is listed as having a history of hyperlipidemia. She should continue her lipid-lowering therapy with her atorvastatin. (8) HTN (hypertension): PLAN: The patient is listed as having history of hypertension. She will continue her antihypertensive therapy which includes her ARB/losartan. Her diuretic therapy may assist with this as well. Addt'l Comments The patient will need continued future outpatient cardiovascular follow-up to monitor her cardiac rate and rhythm, her valvular heart disease, her volume status, etc. The patient's case was discussed and reviewed with the patient. This note was generated using a voice recognition system and there may be incorrect words, spelling or punctuation that were not noted when reviewing the office note prior to saving. Procedure Criteria Type of Procedure Procedure Type: Elective Elective Risks - COVID COVID Risk Discussion: The surgeon/proceduralist and patient have discussed in detail the risk of e xposure to and/or potential harm posed by the COVID-19 virus with having a surgery/procedure at this time versus the risk of delaying the surgery/procedure. It is not possible to know either the risk of delaying the surgery or procedure or chance of getting an infection with perfect accuracy, but a joint decision was made between the patient and the surgeon/proceduralist to proceed at this time with the scheduled surgery/procedure as indicated on the consent form.
[2022-04-23 12:00] LABS: Bedside Glucose 142 mg/dL (74-106)
--- NOTE | 2022-04-23 16:05 | PCM.DC ---
Discharge Instructions Diet Discharge Diet: Light diet - advance as tolerated Activity Discharge Activity: Return to Normal Activity Follow Up Care Test Results: Test results from this visit will be discussed in further detail at your follow-up appointment, if applicable. Discharge Plan Admission Admit Date/Time: 04/18/22 20:23 Primary Reason for Your Visit: GI bleeding Attending Provider: Jocelyne Tipton Primary Care Provider: Aleksandra Martin Consulting Providers: Laura Jack ; Ceasar Combs Instructions Patient Instructions: ED Lower GI Bleeding (Stable) Additional Instructions / Restrictions: *Please take this with you to your next doctors appointment* ?Please call Dr. Diaz's office with gastroenterology upon discharge to schedule hospital follow-up appointment ([phone]) ? You will need repeat endoscopy in [address] Diaz's office ?You will be started on a blood thinner for your irregular heartbeat that was seen during your admission. If you have any signs or symptoms of bleeding please stop this immediately and call your physician or proceed to the emergency department. ? You will be discharged with a prescription for a water pill, Lasix. You will be sent with a 10-day supply to bridge to your appointment with your primary care physician. At that time may benefit from having blood work (BMP) to monitor your potassium and kidney function and to decide on further need for this medication. Please weigh yourself daily first thing in the morning prior to eating and take this log with you to your primary care physician's office ? You will also be sent with a 10-day supply of potassium while you are on the Lasix ?Your new prescriptions have been sent to your preferred pharmacy on file ?Your hydrochlorothiazide was held during your admission, please monitor your blood pressure as an outpatient, this may need to be resumed at your hospital follow-up appointment for your blood pressure remains elevated ? You will be discharged with oxygen, he will likely not need this long-term but at this time you will use 2 L while sitting and 3 L with movement/ambulation ? Would benefit from an outpatient sleep study ?Please call the cardiology office to schedule hospital follow-up appointment ([phone]) ?You will be set up with a cardiac event monitor on discharge to monitor your heart rhythm ?You have indicated that you have 1 week of Trulicity left, will be very important that you keep your doctors appointment with your primary care provider next for further adjustments. ? You indicated that metformin gives her GI upset, would recommend holding this until you discuss with your primary care provider -Please call your primary care provider's office upon discharge to schedule a hospital follow up within 1 week. -For any concerning signs or symptoms please call 911 or proceed to the nearest emergency department Discharge Orders/Prescriptions Prescriptions: New furosemide 40 mg Tablet 40 mg PO DAILY 10 Days Qty: 10 0RF potassium chloride [Klor-Con M20] 20 mEq Tablet,Er Particles/Crystals 40 meq PO DAILYCM 10 Days Qty: 20 0RF Continued losartan [Cozaar] 50 MG tablet 50 mg PO QHS simvastatin 20 MG tablet 20 mg PO QHS loperamide 2 MG capsule 2 mg PO DAILY PRN PRN (Reason: Diarrhea) levothyroxine 50 MCG tablet 125 mcg PO DAILY Trulicity 1.5 mg/0.5 mL Pen Injector 1.5 mg SUBCUT QWEEK Rx Instructions: takes every monday Discontinued hydrochlorothiazide 12.5 mg capsule 12.5 mg PO DAILY metformin 500 mg tablet 500 mg PO DAILY Other Ambulatory Orders: 30 Day Event Recorder Preventi (Urgent) Timeframe: 1 Day Facility: [facility] - Location: Cardiovascular Services Ordered By: Dr. Jocelyne Tipton Referrals / Follow Up: Ceasar Combs MD [Med Staff - Active Staff] - Within 2 Weeks (Please call the cardiology office to schedule hospital follow-up appointment) Pato Diaz DO [Med Staff - Active Staff] - Within 2 Weeks (Please call Dr. Diaz's office with gastroenterology upon discharge to schedule hospital follow-up appointment) Aleksandra Martin PA [Primary Care Provider] - Within 1 Week Disposition Disposition (needs filled in before D/C Order can be placed): Home, Self Care
--- NOTE | 2022-04-23 16:21 | DS.PCM_ITS ---
Providers Date of Admission: 04/18/22 Date of Discharge: 04/23/22 Primary Care Physician: JOSSELYN Frank Consultations 04/17/22 07:00 Consult: Gastroenterology Routine Consulting Provider: [facility] Reason for Consult: GI bleed, colitis noted on OSH CT A/P, Hx colon CA s/p resection. EMERGENT Consult: No MD Notified: Yes Date Notified: 04/17/22 Time Notified: 08:05 Method of Notification: Text 04/21/22 08:19 Consult: Cardiology Routine Consulting Provider: Ceasar Combs Reason for Consult: Sinus liset 30's-50's awake, new onset, low voltage. Asymptomatic currently EMERGENT Consult: No MD Notified: Yes Date Notified: 04/21/22 Time Notified: 10:45 Method of Notification: Text Reason For Visit: GI BLEED, COLITIS, SYNCOPE Diagnosis Discharge Diagnosis (1) Sinus bradycardia: Status: Acute Code(s): R00.1 - Bradycardia, unspecified (2) Transient atrial fibrillation: Status: Acute Code(s): I48.91 - Unspecified atrial fibrillation (3) Mitral regurgitation: Status: Acute Code(s): I34.0 - Nonrheumatic mitral (valve) insufficiency (4) CHF (congestive heart failure): Status: Acute Code(s): I50.9 - Heart failure, unspecified (5) Syncope: Status: Acute Code(s): R55 - Syncope and collapse Qualifiers: Syncope type: unspecified Qualified Code(s): R55 - Syncope and collapse (6) GI bleed: Status: Acute Code(s): K92.2 - Gastrointestinal hemorrhage, unspecified (7) HLD (hyperlipidemia): Status: Chronic Code(s): E78.5 - Hyperlipidemia, unspecified (8) HTN (hypertension): Status: Chronic Code(s): I10 - Essential (primary) hypertension Plan #Sinus bradycardia #Paroxysmal atrial fibrillation #Shortness of breath secondary to fluid overload #Acute GI bleed suspected secondary to ischemic colitis #Syncopal event #History of rectal cancer Medications at Discharge Home Medications losartan 50 mg tablet (Cozaar) 50 mg PO QHS BP 05/11/17 simvastatin 20 mg tablet 20 mg PO QHS cholesterol 05/11/17 loperamide 2 mg capsule 2 mg PO DAILY PRN PRN Diarrhea 08/30/18 levothyroxine 50 mcg tablet 125 mcg PO DAILY thyroid 03/16/20 dulaglutide 1.5 mg/0.5 mL subcutaneous pen injector (Trulicity) 1.5 mg subcut QWEEK dm 04/17/22 furosemide 40 mg tablet 40 mg PO DAILY 10 days #10 tabs 04/23/22 potassium chloride 20 mEq tablet,extended release(part/cryst) (Klor-Con M) 40 meq PO DAILYCM 10 days #20 tabs 04/23/22 Hospital Course Procedures Colonoscopy, EGD and Transthoracic echo Summary of Care Provided Minutes Spent on Discharge: 40 Hospital Course: 8-year-old female with a history of obstructive sleep apnea, morbid obesity, hypertension, hypothyroidism, type II but diabetes mellitus, history of rectal cancer status post colon resection following with Dr. Long with recent [place] admission 03/29 status post exam under anesthesia and anterior vaginal mass resection and cystourethroscopy per Dr. Dickson with reportedly benign pathology presented to [facility] ED on 04/17 with bright red blood per rectum. She was lightheaded and dizzy and began to have diarrhea and had 2 episodes of the bright red blood. She attempted to walk afterwards and had a syncopal episode into her recliner with no trauma. This lasted seconds. She went to the ED and was noted to have bloody diarrhea x1. Bleeding was suspected to be due to colitis. She was started on IV Zosyn and PPI and GI was consulted. Given her history of 7 weeks of concomitant chemoradiation in 2014 for her colon cancer it was thought that this bleeding and colitis was likely ischemic colitis. Zosyn was stopped. She continued to have abdominal pain and diarrhea while here so she had upper and lower endoscopy. Endoscopy showed gastric stenosis which was dilated and biopsied. It was recommended metoclopramide but she did not tolerate this medication and would not take it. Colonoscopy on the same day 04/20 demonstrated diverticulosis in the rectosigmoid colon and the sigmoid colon and in the descending colon. Segmental moderate inflammation was found in the rectosigmoid colon, in the sigmoid colon and in the descending colon secondary to colitis. This was biopsied. There was 1 5 mm polyp in the transverse colon which was removed with a cold snare. 122 mm polyp at the ileocecal valve which was biopsied. She will need a repeat colonoscopy in 3 months for surveillance. She did have improving abdominal pain and diarrhea and no further blood in stool but did develop shortness of breath. CT chest suggestive of some fluid overload. Echo obtained and showed EF of 55 with indeterminant diastolic dysfunction and moderately severe 3+ mitral valve insufficiency. She was started on Lasix which did improve but she continued to be on oxygen. The following day she had sinus bradycardia into the 30s while awake at rest, cardiology consulted and plan for monitoring as she was asymptomatic. That night however she went into A. fib with RVR and required amiodarone and converted. Cardiology again evaluated and recommended event monitor on DC. Unable to tolerate rate control given her sinus bradycardia, discussed with GI and she was cleared for DC and Eliquis. Discussed this with patient. On day of discharge her shortness of breath was indeed improving, did qualify for 2 L of O2 at rest and on ambulation and remained on Lasix and potassium. No chest pain, no significant abdominal pain, passing gas, no further blood per rectum. During her hospitalization she did request that I speak to her [id number] who is currently living in [place], obtain phone number and attempted to call 04/22 but it rang and then after period of time when silent. Instructions for patient as below: *Please take this with you to your next doctors appointment* ?Please call Dr. Diaz's office with gastroenterology upon discharge to schedule hospital follow-up appointment ([phone]) ? You will need repeat endoscopy in [address] Diaz's office ?You will be started on a blood thinner for your irregular heartbeat that was seen during your admission.? If you have any signs or symptoms of bleeding please stop this immediately and call your physician or proceed to the emergency department. ? You will be discharged with a prescription for a water pill, Lasix.? You will be sent with a 10-day supply to bridge to your appointment with your primary care physician.? At that time may benefit from having blood work (BMP) to monitor your potassium and kidney function and to decide on further need for this medication.? Please weigh yourself daily first thing in the morning prior to eating and take this log with you to your primary care physician's office ? You will also be sent with a 10-day supply of potassium while you are on the Lasix ?Your new prescriptions have been sent to your preferred pharmacy on file ?Your hydrochlorothiazide was held during your admission, please monitor your blood pressure as an outpatient, this may need to be resumed at your hospital follow-up appointment for your blood pressure remains elevated ? You will be discharged with oxygen, he will likely not need this long-term but at this time you will use 2 L while sitting and 3 L with movement/ambulation ? Would benefit from an outpatient sleep study ?Please call the cardiology office to schedule hospital follow-up appointment ([phone]) ?You will be set up with a cardiac event monitor on discharge to monitor your heart rhythm ?You have indicated that you have 1 week of Trulicity left, will be very important that you keep your doctors appointment with your primary care provider next for further adjustments. ? You indicated that metformin gives her GI upset, would recommend holding this until you discuss with your primary care provider -Please call your primary care provider's office upon discharge to schedule a hospital follow up within 1 week. -For any concerning signs or symptoms please call 911 or proceed to the nearest emergency department Physical Exam Const alert Constitutional Narrative: Oriented HEENT normocephalic and head/scalp atraumatic Eyes Eyes Narrative: EOM grossly intact, anicteric Neck supple Resp Resp Narrative: Breath sounds diminished at the bases Cardio Cardio Narrative: Sinus bradycardia GI soft to palpation GI Narrative: Tenderness is improved, no rebound, no guarding, no rigidity Extremity Extremity Narrative: No significant edema appreciated Neuro moves all extremities Neuro Narrative: No overt focal deficits appreciated Psych Psych Narrative: Cooperative Weight / BMI Weight Weight: 104.8 kg Body Mass Index (BMI) 45.2 ABG / Lab / Microbiology Data Result Diagrams: 04/23/22 06:48 04/23/22 06:48 Laboratory: Laboratory Results - last 24 hr 04/19/22 05:42: Total Protein (PEP) 5.4 L, Globulin 2.6, Stl Giardia Antigen Cancelled, IgG 846, IgA 186, IgM 74, IgE 23, Immunofixation Screen Comment, Albumin (CELESTINO) 2.8 L, Albumin/Globulin (CELESTINO) 1.1, Nrumk-8-Epykubkoo CELESTINO 0.3, Xizog-3-Wgjomjqsn CELESTINO 0.6, Beta-Globulins (CELESTINO) 0.9, Gamma Globulins (CELESTINO) 0.8, CELESTINO M-Eleazar , CELESTINO Comments Comment, c-ANCA Antibody <1:20, Atypical p-ANCA <1:20, p-ANCA Antibody <1:20 04/19/22 05:42: Seafood Allergens Negative, Beef Allergen <0.10, Chocolate Allergen <0.10, Bancroft Allergen <0.10, Cow's Milk Allergen <0.10, Egg Whole Allergen <0.10, Peanut Allergen <0.10, Pork Allergen <0.10, Soybean Allergen <0.10, Wheat Allergen <0.10, RAST Comment Comment, Stool Calprotectin Cancelled, REYNALDO-1 Antibody <0.2, SS-A/Ro IgG Antibody < 0.2, SS-B/La IgG Antibody < 0.2, Sm (Wong) Antibody <0.2, PROJECT SPECIALIST Antibody <0.2, Scl-70 Scleroderma Ab <0.2, Double Strand DNA Ab <1, Centromere B Antibody <0.2 04/22/22 16:31: POC Glucose 157 H 04/22/22 21:36: POC Glucose 168 H 04/23/22 06:26: POC Glucose 135 H 04/23/22 06:48: WBC 5.4, RBC 3.88 L, Hgb 12.1, Hct 37.3, MCV 96.1, MCH 31.2, MCHC 32.4, RDW Std Deviation 47.8 H, RDW Coeff of Kg 13.8, Plt Count 232, MPV 9.5, Immature Gran % (Auto) 1.100 H, Neut % (Auto) 59.3, Lymph % (Auto) 20.9, [place] % (Auto) 12.8 H, Eos % (Auto) 5.0, Baso % (Auto) 0.9, Absolute Neuts (auto) 3.2, Absolute Lymphs (auto) 1.13, Nucleated RBC % 0.4 04/23/22 06:48: Sodium 142, Potassium 2.9 L, Chloride 105, Carbon Dioxide 29.0, Anion Gap 8, BUN 15, Creatinine 0.60, Estim Creat Clear Calc 38.94, Est GFR (MDRD) Af Amer 128, Est GFR (MDRD) Non-Af 105, BUN/Creatinine Ratio 25.1 H, Glucose 137 H, Calcium 8.7, Magnesium 1.9, Total Bilirubin 0.60, AST 17, ALT 53, Alkaline Phosphatase 101, Total Protein 6.5, Albumin 2.8 L, Globulin 3.7, Albumin/Globulin Ratio 0.8 L 04/23/22 11:40: POC Glucose 142 H Microbiology: Microbiology 04/21/22 10:32 Mucosa - Nose Respiratory Panel (PCR) - Final 04/21/22 09:00 Nasal Secretion SARS-CoV-2 & FLU Antigen (Rapid) - Final 04/18/22 02:05 Stool C. difficile DNA Amplification - Final 04/19/22 02:05 Stool Enteric Bacteriology - Final 04/19/22 02:05 Stool Stool Lactoferrin - Final D/C Instructions Discharge Diet: Light diet - advance as tolerated Meaningful Use Info Meaningful Use Diagnoses (Choose all that apply): None applicable Discharge Plan Admission Admit Date/Time: 04/18/22 20:23 Primary Reason for Your Visit: GI bleeding Attending Provider: Jocelyne Tipton Primary Care Provider: Aleksandra Martin Consulting Providers: Laura Jack ; Ceasar Combs Instructions Patient Instructions: ED Lower GI Bleeding (Stable) Additional Instructions / Restrictions: *Please take this with you to your next doctors appointment* ?Please call Dr. Diaz's office with gastroenterology upon discharge to schedule hospital follow-up appointment ([phone]) ? You will need repeat endoscopy in [address] Diaz's office ?You will be started on a blood thinner for your irregular heartbeat that was seen during your admission. If you have any signs or symptoms of bleeding please stop this immediately and call your physician or proceed to the emergency department. ? You will be discharged with a prescription for a water pill, Lasix. You will be sent with a 10-day supply to bridge to your appointment with your primary care physician. At that time may benefit from having blood work (BMP) to monitor your potassium and kidney function and to decide on further need for this medication. Please weigh yourself daily first thing in the morning prior to eating and take this log with you to your primary care physician's office ? You will also be sent with a 10-day supply of potassium while you are on the Lasix ?Your new prescriptions have been sent to your preferred pharmacy on file ?Your hydrochlorothiazide was held during your admission, please monitor your blood pressure as an outpatient, this may need to be resumed at your hospital follow-up appointment for your blood pressure remains elevated ? You will be discharged with oxygen, he will likely not need this long-term but at this time you will use 2 L while sitting and 3 L with movement/ambulation ? Would benefit from an outpatient sleep study ?Please call the cardiology office to schedule hospital follow-up appointment ([phone]) ?You will be set up with a cardiac event monitor on discharge to monitor your heart rhythm ?You have indicated that you have 1 week of Trulicity left, will be very important that you keep your doctors appointment with your primary care provider next for further adjustments. ? You indicated that metformin gives her GI upset, would recommend holding this until you discuss with your primary care provider -Please call your primary care provider's office upon discharge to schedule a hospital follow up within 1 week. -For any concerning signs or symptoms please call 911 or proceed to the nearest emergency department Discharge Orders/Prescriptions Prescriptions: New furosemide 40 mg Tablet 40 mg PO DAILY 10 Days Qty: 10 0RF potassium chloride [Klor-Con M20] 20 mEq Tablet,Er Particles/Crystals 40 meq PO DAILYCM 10 Days Qty: 20 0RF Continued losartan [Cozaar] 50 MG tablet 50 mg PO QHS simvastatin 20 MG tablet 20 mg PO QHS loperamide 2 MG capsule 2 mg PO DAILY PRN PRN (Reason: Diarrhea) levothyroxine 50 MCG tablet 125 mcg PO DAILY Trulicity 1.5 mg/0.5 mL Pen Injector 1.5 mg SUBCUT QWEEK Rx Instructions: takes every monday Discontinued hydrochlorothiazide 12.5 mg capsule 12.5 mg PO DAILY metformin 500 mg tablet 500 mg PO DAILY Other Ambulatory Orders: 30 Day Event Recorder Preventi (Urgent) Timeframe: 1 Day Facility: [facility] - Location: Cardiovascular Services Ordered By: Dr. Jocelyne Tipton Referrals / Follow Up: Ceasar Combs MD [Med Staff - Active Staff] - Within 2 Weeks (Please call the cardiology office to schedule hospital follow-up appointment) Pato Diaz DO [Med Staff - Active Staff] - Within 2 Weeks (Please call Dr. Diaz's office with gastroenterology upon discharge to schedule hospital follow-up appointment) Aleksandra Martin PA [Primary Care Provider] - Within 1 Week Disposition Disposition (needs filled in before D/C Order can be placed): Home, Self Care Charges/Coding Visit Charges Inpatient E&M: 16552 Disch Hosp
== END 2022-04-23 17:22 | disposition home or self-care (01) | DRG 347 ==
LOC: MS3 04-21 08:21 → PCU 04-22 09:05
PROVIDERS: Anesthesiology; Internal Medicine Gastroenterology; Admitting Provider Family Medicine; PCP Physician Assistant; Visit Provider Internal Medicine
PROC: 0DJD8ZZ Inspection of Lower Intestinal Tract, Via Natural or Artificial Opening Endoscopic (ICD-10-PCS; CPT 45378; principal; 2022-04-20 11:55)
DX: K55.9 Vascular disorder of intestine, unspecified (principal); K57.31 Diverticulosis of large intestine without perforation or abscess with bleeding; I50.31 Acute diastolic (congestive) heart failure; K29.71 Gastritis, unspecified, with bleeding; K31.1 Adult hypertrophic pyloric stenosis; Z68.41 Body mass index [BMI] 40.0-44.9, adult; K52.0 Gastroenteritis and colitis due to radiation; I11.0 Hypertensive heart disease with heart failure; E11.9 Type 2 diabetes mellitus without complications; E66.01 Morbid (severe) obesity due to excess calories; I48.0 Paroxysmal atrial fibrillation; E78.5 Hyperlipidemia, unspecified; E03.9 Hypothyroidism, unspecified; G47.33 Obstructive sleep apnea (adult) (pediatric); K63.5 Polyp of colon; K62.4 Stenosis of anus and rectum; K44.9 Diaphragmatic hernia without obstruction or gangrene; I34.0 Nonrheumatic mitral (valve) insufficiency; E87.70 Fluid overload, unspecified; R00.1 Bradycardia, unspecified; Z20.822 Contact with and (suspected) exposure to COVID-19; Z79.84 Long term (current) use of oral hypoglycemic drugs; Z79.890 Hormone replacement therapy; Z79.899 Other long term (current) drug therapy; Z85.048 Personal history of other malignant neoplasm of rectum, rectosigmoid junction, and anus; Z92.3 Personal history of irradiation; Z92.21 Personal history of antineoplastic chemotherapy; Z80.0 Family history of malignant neoplasm of digestive organs
CPT/HCPCS: 36415; 71045; 71270; 80048; 80053; 82784; 82785; 82962; 83036; 83630; 83735; 83880; 83993; 84165; 84439; 84443; 84484; 85025; 85652; 86003; 86005; 86140; 86225; 86235; 86256; 86334; 87329; 87428; 87493; 87506; 87633; 88305; 88313; 88342; 93005; 93306; 94640; 99251; J7030; J7050; J7120; Q9967; A4216; G0463; J1940; J2405

== ENCOUNTER → 2022-05-31 | Outpatient (CLI) | payer MEDICARE, OTHER, SELFPAY | END | disposition home or self-care (01) | LOC: PSN 10:47 | PROVIDERS: PCP Physician Assistant; Referring Provider Internal Medicine Cardiovascular Disease; Visit Provider Internal Medicine Cardiovascular Disease | DX: I48.91 Unspecified atrial fibrillation (principal); R00.1 Bradycardia, unspecified | CPT/HCPCS: 93225; 93226 ==

== ENCOUNTER 2022-07-13 07:22 | Day surgery (SDC) | payer MEDICARE, OTHER, SELFPAY ==
--- NOTE | 2022-06-23 10:06 | RAD_ITS ---
INDICATION: Cardiac catheterization EXAMINATION/TECHNIQUE: X-RAY - XR Chest 2 Views COMPARISON: None. FINDINGS: LINES/DEVICES: None. LUNGS: There is focal basilar opacity medially in the right lung base. No pneumothorax. MEDIASTINUM AND CARDIOVASCULAR STRUCTURES: Cardiac silhouette not enlarged. Central airways and mediastinal contour are unremarkable. BONES AND SOFT TISSUES: Degenerative vertebral changes. RAD/Chest PA and Lateral IMPRESSION: There is focal basilar opacity medially in the right lung base possibly an infiltrate. Electronically Signed: Karthikeyan Parra DO at 21:13 EST Reading Location ID and State: [facility] / [place] Tel [phone], Service support ,
[2022-06-23 10:25] LABS: Absolute Neutrophil Count 4.1 X10^3/uL (2.0-7.7); Basophil# 0.05 X10^3/uL; Basophil% 0.8 % (0-1); Eosinophil# 0.21 X10^3/uL; Eosinophils% 3.2 % (0-5); Hematocrit 38.9 % (37-47); Hemoglobin 12.6 g/dL (12.0-15.0); Lymphocyte % 19.7 % (19-41); Mean Corp Hgb Conc 32.4 g/dL (32-36); Mean Corpuscular Hgb 30.1 pg (27.0-32.0); Mean Corpuscular Volume 93.1 fL (81-99); Mean Platelet Vol. 9.6 fl (6.2-12.0); Monocyte# 0.97 X10^3/uL; Monocyte% 14.7 % (0-10); NRBC Flagged by Analyzer 0 % (0-5); Neutrophil # 4.05 X10^3/uL (2.7-7.7); Neutrophil % 61.3 % (47-70); Platelet Count 209 K/mm3 (150-450); RBC Distribution Width CV 13.8 % (11.6-14.6); Red Blood Count 4.18 M/mm3 (4.2-5.4); White Blood Count 6.6 K/mm3 (4.4-11.0)
[2022-06-23 10:50] LABS: Anion Gap 4 (5-15); BUN 22 mg/dL (7-18); BUN/Creat Ratio 27.9 RATIO (10-20); Calcium,Total 9.4 mg/dL (8.5-10.1); Chloride 107 mmol/L (98-107); Creatinine, Serum 0.79 mg/dL (0.55-1.02); EST Glomerular Filtration Rate 76 mL/min (>60); Est Glom Filt Rate - Afr Amer 93 mL/min (>60); Glucose 123 mg/dL (74-106); Potassium 3.6 mmol/L (3.5-5.1); Sodium Level 142 mmol/L (136-145)
[2022-07-12 07:05] VITALS: BMI 41.1
--- NOTE | 2022-07-13 09:44 | CL.D_ITS ---
Patient Name: DELMY ROLDAN Study Date: 07/13/2022 Performing: Ceasar Combs MD Ht: 61 inches 154.94 cm : 1950 Wt: 217.99 lbs 98.88 kg Age: 72 Gender: female BSA: 1.96 PROCEDURE(S) PERFORMED DC01-([id number])LHC/COR/LV CLINICAL PROFILE AND INDICATIONS Indications: Cardiac Arrythmia Heart Failure: None CAD Presentations: No Sxs, no angina. CONCLUSIONS 50% Mid D1 50% LPDA Mild MR LVEF 60% RECOMMENDATIONS Medical therapy Risk factor modification DESCRIPTION OF PROCEDURE The patient arrived to the procedure lab. The risks and benefits of the procedure as well as a full description of our services here and current unavailability of surgical backup were fully explained to the patient and/or their significant other prior to the catheterization. The Timeout was completed, verifying the correct patient and procedure. The patient's procedural site was prepped and draped in the usual fashion. Local anesthetic was given subcutaneously to right radial region with Lidocaine 2%. Using a modified Seldinger technique, arterial access was obtained via the right radial artery, a 6Fr sheath was inserted. Left Coronary Artery selective angiography was performed in multiple views using a 5 Fr. 4.0 Galt catheter. Right Coronary Artery selective angiography was then performed in multiple views using a 5 Fr. 4.0 Galt catheter. Left Ventriculography was performed in CAPUTO projection using a 5 Fr. Pigtail catheter.The arterial sheath was pulled and a TR Band was applied for hemostasis 9cc air CORONARY ANGIOGRAPHY DOMINANCE: Left Dominant LEFT HEART ASSESSMENT Left Ventricular Ejection Fraction: by LV Gram 60 % LVEDP: 21 mmHg LEFT MAIN: Angiographically normal LEFT ANTERIOR DESCENDING ARTERY: Angiographically normal DIAGONAL 1: Tubular 50% Mid lesion in 1st Diagonal CIRCUMFLEX ARTERY: Angiographically normal LT PDA: Tubular 50% Mid lesion in Left PDA RIGHT CORONARY ARTERY: Mild luminal irregularities less than 30% VALVE FINDINGS: Mitral Valve Insufficiency - Grade 2 COMPLICATIONS No Complications PROCEDURE MEDICATIONS Versed 2 mg IV Fentanyl 50 mcg IV Oxygen: 2 L/min via nasal cannula Nitro 200 mcg IC 07/13/2022 09:30:23 IV Bolus: .9 NaCl 250 ml total 07/13/2022 09:30:40 SUMMARY OF HEMODYNAMIC DATA Time AIR REST ECG 07:50:21 AO 126/82 (111) SA 09:22:27 LV 138/-2, 21 09:29:20 LV 143/-1, 21 09:29:29 LV 131/0, 19 09:31:04 LV 133/0, 20 09:31:14 LVp 133/-1, 19 09:31:18 AOp 130/77 (101) 09:31:25 Signed By Ceasar Combs MD On 07/13/2022 09:43:22 Ceasar Combs MD
== END 2022-07-13 11:05 | disposition home or self-care (01) ==
LOC: CLSP 07:25
PROVIDERS: PCP Physician Assistant; Referring Provider Internal Medicine Cardiovascular Disease; Visit Provider Internal Medicine Cardiovascular Disease
DX: I34.0 Nonrheumatic mitral (valve) insufficiency (principal); I47.29 Other ventricular tachycardia; I49.5 Sick sinus syndrome; I48.91 Unspecified atrial fibrillation; E11.9 Type 2 diabetes mellitus without complications; I10 Essential (primary) hypertension; E78.5 Hyperlipidemia, unspecified; E03.9 Hypothyroidism, unspecified; G47.33 Obstructive sleep apnea (adult) (pediatric); Z79.82 Long term (current) use of aspirin
CPT/HCPCS: 36415; 71046; 80048; 85025; 93458; 99152; 99153; J7040; Q9967; C1769; C1894

== ENCOUNTER → 2022-08-12 | Outpatient (CLI) | payer MEDICARE, OTHER, SELFPAY | END | disposition home or self-care (01) | LOC: PSN 13:29 | PROVIDERS: PCP Physician Assistant; Referring Provider Internal Medicine Cardiovascular Disease; Visit Provider Internal Medicine Cardiovascular Disease | DX: I49.9 Cardiac arrhythmia, unspecified (principal) | CPT/HCPCS: 93225; 93226 ==

== ENCOUNTER 2022-09-12 06:29 | Day surgery (SDC) | payer MEDICARE, OTHER, SELFPAY ==
--- NOTE | 2022-09-12 06:59 | HP.PCM_ITS ---
History and Physical Date of Admission: 09/12/22 ANNMARIE ROLDAN, is a 72 F who presents to the office today for PMH WICHO, CPAP; HTN, HLD, bradycardia, mitral regurgitation, CHF; DMII; colon cancer s/p resection, WCC; recurrent UTI. Colon cancer found during imaging for recurrent UTI noting rectal mass. Dr. Mcgovern performed colon surgery 02.20.15. Chemotherapy [id number]. Dr. James seen for diarrhea, cramping and abdominal pain with meals who suspected patulous anal canal. Since noted to have abnormal cervix with surgery performed by Dr. Dickson 03.29.22. CT abd/pel 03.12.20 cancer monitoring noting hepatomegaly and steatosis; adrenal mass, adenoma; small hiatal hernia; diverticulosis; RS junction anastomosis; umbilical hernia containing fat; scarring and volume loss of right lung. Follow up. Annmarie established with this clinic through [facility] hospitalization -04.23.22 where she received management for cardiac management and GIB. Initially presented to [facility] ED for abdominal cramping, nausea, diarrhea BRBPR, lightheadedness, dizziness and syncopal event. GI consulted 04.18.22 for colon cancer history and rectal bleeding with a hgb 11.2. EGD and colonoscopy 04.20.22. EGD noting gastric stenosis of pylorus, 15mm balloon dilator; small hiatal hernia; erosive esophagitis; gastritis. H.Pylori - . Colonoscopy found diverticulosis; segmental moderate inflammation of RS, sigmoid and descending colon secondary to colitis, pathology revealed ischemia; one 5mm polyp and one 22mm TA polyp. Bleeding suspected to be colitis/ischemic colitis related. Stool studies C.difficile, EP WNL. Lactoferrin +. ?Start reglan 5mg QIDx 2weeks. She is doing well overall since getting home, though she had one day of emesis and diarrhea that she feels r/t viral illness with other family members having a similar illness, PCP started her on Zofran for nausea r/t to this. Energy level is rebounding recently. Her bowels are continuing to normalize since illness. She was not discharged with reglan. Exam Const General: cooperative and comfortable Nutritional Appearance: average body habitus and well nourished HENHI Head: normal to inspection Ears: hearing grossly normal bilaterally Nose: external nose normal Face and sinus: normal facial exam Mouth: oral mucosae normal Throat: posterior oropharynx normal Eyes General: appearance normal, both eyes and all related structures Neck Neck: normal visual inspection Chest Chest palpation & inspection: normal inspection of the chest and normal palpation of entire chest wall Resp Effort & Inspection: normal respiratory effort Auscultation: Bilateral: Clear to Auscultation Cardio Palpation: normal PMI Rate: regular rate Rhythm: regular rhythm GI Inspection: normal to inspection Auscultation: normal bowel sounds Percussion: normal to percussion Palpation: no hepatosplenomegaly Skin General: no rashes or lesions noted Neuro General: patient alert Extrem General: normal to inspection Psych Affect: normal affect Quality Reporting Tobacco Screening ([facility] 138) Smoking Status: Never smoker Assessment and Plan Assessment and Plan (1) History of rectal cancer: ?Status:?Chronic ?Comment: No evidence of disease clinically. ?Plan: She underwent a colonoscopy and was discovered to have 2 adenomatous polyps that were removed.? Her surgical anastomosis previously treated colonic area with radiation normal.? There were some signs of angiodysplasia in anal canal secondary to radiation that was seen without any bleeding stigmata.? She has not had any bleeding since leaving the hospital. 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 She does not vary some urgency distance stools and wishes to be expected after undergoing a colonic resection, chemotherapy and radiation.? I suggested to her to take Fiber Choice once a day to maintain good bowel health along with increasing her water content on a daily basis (3) GI bleed: ?Status:?Chronic ?Plan: Her GI bleed was secondary to ischemic colitis which I believe was secondary to a gastroenteritis.? She is doing very well without any sequela from that incident causing her to come into the hospital.? Biopsies of the sigmoid colon did confirm ischemic colitis (4) Pyloric stenosis in adult: ?Status:?Acute ?Plan: She did notice that she is not having as much abdominal pain that she had previously after eating.? The only problem that she is experiencing now is a mildly elevated blood sugars that she is controlling with diet since she is not on her Trulicity anymore.? She will get a repeat upper endoscopy and will likely need a gastric emptying study in the future. I have examined the patient and the H&P has been reviewed. There are no clinical changes since date of exam.
[2022-09-12 07:08] VITALS: BP 148/80; PULSE 69; RESP 16; TEMP 36.5; O2SAT 95; BMI 42.5
[2022-09-12] MEDS: Lactated Ringers 1,000 ML 15 ML IV (07:18)
[2022-09-12 07:45] LABS: Bedside Glucose 116 mg/dL (74-106)
--- NOTE | 2022-09-12 07:45 | EGD_PTH ---
PATIENT: DLEMY ROLDAN LOC: EN U#:[id number] AGE/SX: 72/F ROOM: RE09/12/[address]: Dr. Pato Diaz DO : 1950 BED: DIS: 09/12/2022 SPEC #: [id number] RECD: 09/12/22 12:16 STATUS: TEJ JANA #: [id number] TONIO: 09/12/22 07:[address]: Pato Diaz DEPT: SURGICAL PATHOLOGY RECD BY: Reva Posadas ENTERED: 09/12/22 12:55 SP TYPE: EGD BIOPSY OT DR: JOSSELYN Frank Tissues: A - Duodenum, NOS B - Stomach, NOS Procedures: Surgery Specimen Level IV HEADER OPERATION: EGD ([facility] [place]) PRE-OP DIAGNOSIS: History GI bleed TISSUE SUBMITTED: A ? Duodenum biopsy, B ? Lesser curvature biopsy MICROSCOPIC DIAGNOSIS A. Duodenum, biopsy: Fragments of duodenal mucosa, no pathologic diagnosis. B. Lesser curvature, biopsy: Mild gastritis. See microscopic description and comment. MADELEINE:sabas 09/13/2022 COMMENT B. The results of immunohistochemistry for Helicobacter pylori will be reported separately ([id number]). MICROSCOPIC DESCRIPTION Slides are reviewed. B. The specimen shows fragments of gastric mucosa with chronic inflammatory cell infiltrates in the lamina propria consisting of lymphocytes and plasma cells, consistent with mild chronic gastritis. GROSS DESCRIPTION A - Received in fixative is one container labeled with the patient's name and designated duodenum biopsy. The specimen consists of two irregular fragments of light bird soft tissue that in aggregate measure 0.5 x 0.2 x 0.1 cm. The specimen is totally submitted in one cassette. B - Received in fixative is one container labeled with the patient's name and designated lesser curvature biopsy. The specimen consists of two irregular fragments of light bird soft tissue that in aggregate measure 0.6 x 0.3 x 0.1 cm. The specimen is totally submitted in one cassette. / MADELEINE:sabas 09/12/2022 TC:3 CPT: 18248 x2
--- NOTE | 2022-09-12 07:45 | IMM_PTH ---
PATIENT: DELMY ROLDAN LOC: [place] U#:[id number] AGE/SX: 72/F ROOM: RE09/12/[address]: Dr. Pato Diaz DO : 1950 BED: DIS: 09/12/2022 SPEC #: [id number] RECD: 09/12/22 13:05 STATUS: TEJ REStephanie #: [id number] TONIO: 09/12/22 07:[address]: Pato Diaz DEPT: IMMUNOHISTOCHEMISTRY RECD BY: Paula Veloz ENTERED: 09/12/22 13:06 SP TYPE: IMMUNO OTHR DR: JOSSELYN Frank Tissues: B - Stomach, NOS Procedures: H Pylori (initial) PHYSICIAN & INSTITUTION [place] [id number] SPECIMEN INFORMATION: Tissue Source: B ? Lesser curvature Clinical Info: History of GI bleed Specimen Number: [id number] CPT code: 19600 METHODOLOGY: Deparaffinized sections of prefer/formalin-fixed tissue or PAP/DQ stained slides are incubated with monoclonal/polyclonal antibodies/oligonucleotide probes. Localization is made via biotin free immunoperoxidase method. Appropriate controls are performed and reacted as expected. Results on target cell population are indicated in the following table: RESULTS: ANTIBODY / CLONE RESULT Block B H Pylori (polyclonal) negative These tests were developed and their performance characteristics determined by [facility]. They may not have been cleared or approved by the [place]. Food and Drug Administration. The FDA has determined that such clearance or approval is not necessary. The above immunohistochemical/dualISH markers are ordered and reviewed by the Pathologist. INTERPRETATION: B. Lesser curvature, biopsy: Negative for Helicobacter pylori organisms. SJ:sabas 09/13/2022
[2022-09-12 07:54] VITALS: BP 124/69; BP 148/80; PULSE 73; RESP 14; TEMP 36.7; O2SAT 94
--- NOTE | 2022-09-12 07:55 | OP.EGD_ITS ---
Patient Name: Annmarie Gregorio Procedure Date: 09/12/2022 7:37 AM Date of : 1950 Age: 72 Procedure: Upper GI endoscopy Indications: Epigastric abdominal pain Providers: Pato Diaz DO Referring MD: Pato Diaz DO Medicines: Monitored Anesthesia Care Patient Profile: This is a 72 year old female. Refer to note in patient chart for documentation of history and physical. Patient has symptoms of chronic abdominal cramping, chronic abdominal distention and chronic epigastric abdominal pain. Complications: No immediate complications. Procedure: Pre-Anesthesia Assessment: - Prior to the procedure, a History and Physical was performed, and patient medications and allergies were reviewed. The risks and benefits of the procedure and the sedation options and risks were discussed with the patient. All questions were answered and informed consent was obtained. Patient identification and proposed procedure were verified by the physician in the pre-procedure area. Mental Status Examination: alert and oriented. Airway Examination: normal oropharyngeal airway and neck mobility. Respiratory Examination: clear to auscultation. CV Examination: normal. Prophylactic Antibiotics: The patient does not require prophylactic antibiotics. Prior Anticoagulants: The patient has taken no previous anticoagulant or antiplatelet agents. ASA Grade Assessment: II - A patient with mild systemic disease. After reviewing the risks and benefits, the patient was deemed in satisfactory condition to undergo the procedure. The anesthesia plan was to use monitored anesthesia care (MAC). Immediately prior to administration of medications, the patient was re-assessed for adequacy to receive sedatives. The heart rate, respiratory rate, oxygen saturations, blood pressure, adequacy of pulmonary ventilation, and response to care were monitored throughout the procedure. The physical status of the patient was re-assessed after the procedure. After obtaining informed consent, the endoscope was passed under direct vision. Throughout the procedure, the patient's blood pressure, pulse, and oxygen saturations were monitored continuously. The gastroscope was introduced through the mouth, and advanced to the second part of duodenum. The upper GI endoscopy was accomplished without difficulty. The patient tolerated the procedure well. Scope In: 7:46:42 AM Scope Out: 7:50:56 AM Total Procedure Duration Time 0 hours 4 minutes 14 seconds Findings: The examined esophagus was normal. Localized mild inflammation characterized by erosions and erythema was found on the lesser curvature of the stomach. Biopsies were taken with a cold forceps for histology. Verification of patient identification for the specimen was done. Estimated blood loss was minimal. No gross lesions were noted in the first portion of the duodenum. Biopsies were taken with a cold forceps for histology. Verification of patient identification for the specimen was done. Estimated blood loss was minimal. Impression: - Normal esophagus. - Acute gastritis. Biopsied. - No gross lesions in the first portion of the duodenum. Biopsied. Recommendation: - Discharge patient to home. - Resume previous diet. - Continue present medications. - Await pathology results. Procedure Code(s): --- Professional --- 26608, Esophagogastroduodenoscopy, flexible, transoral; with biopsy, single or multiple CPT copyright 2017 [employer]. All rights reserved. The codes documented in this report are preliminary and upon fire pilot review may be revised to meet current compliance requirements. Pato Diaz DO 09/12/2022 7:55:13 AM This report has been signed electronically. Number of Addenda: 0 Note Initiated On: 09/12/2022 7:37 AM
--- NOTE | 2022-09-12 07:55 | OP.CCLET_ITS ---
09/12/2022 Aleksandra Martin Re : Upper GI endoscopy procedure for Annmarie Cabrera Mario This procedure was performed on Monday, September 12, 2022. My impressions and recommendations are as follows: Impressions : - Normal esophagus. - Acute gastritis. Biopsied. - No gross lesions in the first portion of the duodenum. Biopsied. Recommendations : - Discharge patient to home. - Resume previous diet. - Continue present medications. - Await pathology results. My findings are described in the full procedure note, which is enclosed. If I can be of further assistance, please feel free to contact me at . Sincerely, Pato Diaz, 09/12/2022 7:55:13 AM This report has been signed electronically.
[2022-09-12 08:00] VITALS: BP 120/75; BP 148/80; PULSE 80; RESP 16; O2SAT 95
[2022-09-12 08:05] VITALS: BP 118/79; BP 148/80; PULSE 70; RESP 14; O2SAT 93
[2022-09-12 08:10] VITALS: BP 122/61; BP 148/80; PULSE 69; RESP 16; TEMP 36.2; O2SAT 93
[2022-09-12 08:40] VITALS: BP 148/80
== END 2022-09-12 08:48 | disposition home or self-care (01) ==
LOC: EN 06:30 → AC 06:34
PROVIDERS: PCP Physician Assistant; Referring Provider Physician Assistant; Visit Provider Internal Medicine Gastroenterology
PROC: 0DJ08ZZ Inspection of Upper Intestinal Tract, Via Natural or Artificial Opening Endoscopic (ICD-10-PCS; CPT 43235; principal; 2022-09-12 07:40)
DX: K29.00 Acute gastritis without bleeding (principal); I50.9 Heart failure, unspecified; I11.0 Hypertensive heart disease with heart failure; K55.9 Vascular disorder of intestine, unspecified; E11.9 Type 2 diabetes mellitus without complications; E78.5 Hyperlipidemia, unspecified; Z85.038 Personal history of other malignant neoplasm of large intestine; Z79.899 Other long term (current) drug therapy; Z79.890 Hormone replacement therapy; Z79.82 Long term (current) use of aspirin; E03.9 Hypothyroidism, unspecified
CPT/HCPCS: 43239; 82962; 88305; 88342; J7120; J2405

== ENCOUNTER → 2023-01-25 | Outpatient (CLI) | payer MEDICARE, OTHER, SELFPAY ==
--- NOTE | 2023-01-25 09:29 | ECHOD_ITS ---
Version 2 Reason For Study: NON-RHEUMATIC MV INSUFFICIENCY Procedure This was a 2D Doppler, Color Flow transthoracic echocardiogram. Exam performed in department. Left Ventricle Normal size and thickness. The left ventricular ejection fraction is 60 %. Normal diastology for age. Mild inferior and mid to distal inferior septal hypokinesis. Right Ventricle Normal right ventricle. Atria The left atrium is moderately enlarged. Normal right atrium. Mitral Valve Mild-Moderate (1-2+) posteriorly directed mitral valve insufficiency. Tricuspid Valve Trivial tricuspid valve insufficiency. Right ventricular systolic pressure estimated to be 35 mmHg. Aortic Valve Trisinus/trileaflet aortic valve. Pulmonic Valve The pulmonic valve is not well visualized. Trivial pulmonic valve insufficiency. Great Vessels Mildly dilated aortic root. Pericardium/Pleural No pericardial effusion. MMode/2D Measurements & Calculations LVIDd: 5.0 cm IVSd: 1.1 cm Ao root diam: 3.9 cm LVIDs: 3.8 cm LVPWd: 1.1 cm RVDd: 2.9 cm FS: 25.0 % LAV(MOD-bp): 52.2 ml LVAd ap4: 30.5 cm2 LVAd ap2: 27.0 cm2 LAV(MOD-bp) Indexed: 26.7 ml/m2 LVLd ap4: 7.7 cm LVLd ap2: 7.6 cm LAV(MOD-sp2): 53.2 ml EDV(MOD-sp4): 98.4 ml EDV(MOD-sp2): 80.8 ml LAV(MOD-sp4): 51.9 ml EDV(sp4-el): 102.9 ml EDV(sp2-el): 82.0 ml LVAs ap4: 19.5 cm2 LVAs ap2: 16.9 cm2 LVLs ap4: 6.7 cm LVLs ap2: 6.9 cm ESV(MOD-sp4): 49.2 ml ESV(MOD-sp2): 36.1 ml ESV(sp4-el): 48.5 ml ESV(sp2-el): 35.1 ml EF(MOD-sp4): 50.0 % EF(MOD-sp2): 55.3 % EF(sp4-el): 52.8 % SV(MOD-sp4): 49.2 ml SV(MOD-sp2): 44.7 ml SV(sp4-el): 54.4 ml LA dimension(2D): 4.6 cm LA A4 area: 18.4 cm2 RA A4 area: 14.3 cm2 TAPSE: 2.4 cm Time Measurements MV dec time: 0.25 sec Doppler Measurements & Calculations MV E max corbin: 88.9 cm/sec Lat Peak E' Corbin: 6.8 cm/sec Med Peak E' Corbin: 6.7 cm/sec MV A max corbin: 99.7 cm/sec E/E' lat: 13.1 E/E' med: 13.2 MV E/A: 0.89 MV V2 max: 114.7 cm/sec MV dec slope: 364.4 cm/sec2 Ao V2 max: 110.2 cm/sec MV max P.3 mmHg Ao max P.9 mmHg MV V2 mean: 70.3 cm/sec Ao V2 mean: 80.5 cm/sec MV mean P.3 mmHg Ao mean P.8 mmHg MV V2 VTI: 33.5 cm Ao V2 VTI: 26.1 cm AV (velocity ratio): 0.75 LV V1 max: 75.3 cm/sec MR max corbin: 535.9 cm/sec PA V2 max: 70.5 cm/sec LV V1 max P.3 mmHg MR max P.9 mmHg PA V2 mean: 51.6 cm/sec LV V1 mean P.3 mmHg MR mean corbin: 452.1 cm/sec LV V1 mean: 53.5 cm/sec MR mean P.5 mmHg LV V1 VTI: 19.5 cm MR VTI: 221.9 cm TR max corbin: 233.5 cm/sec TR max P.8 mmHg ECHO/Echo Complete Interpretation Summary The left ventricular ejection fraction is 60 %. Mild inferior and mid to distal inferior septal hypokinesis. Mild-Moderate (1-2+) posteriorly directed mitral valve insufficiency. Mildly dilated aortic root. Hepatic cysts noted. Recommend ultrasound liver for further evaluation if clini alvaro indicated. Ordering Physician: Ceasar Combs Referring Physician: Aleksandra Martin Performed By: Rakel Valdovinos, JESSY, RVT
[2023-01-25 11:15] LABS: AST(SGOT) 36 U/L (15-37); Alanine Aminotransfer ALT/SGPT 49 U/L (13-56); CPK Total, Creatine Kinase 74 U/L (26-192); Cholesterol 150 mg/dL (200); High Density Lipoprotein 69 mg/dL; Triglycerides 145 mg/dL; Very Low Density Lipoprotein 29 mg/dL (5-40)
== END | disposition home or self-care (01) ==
LOC: CVS 09:21
PROVIDERS: PCP Physician Assistant; Referring Provider Internal Medicine Cardiovascular Disease; Visit Provider Internal Medicine Cardiovascular Disease
DX: I34.0 Nonrheumatic mitral (valve) insufficiency (principal); I48.91 Unspecified atrial fibrillation; I25.10 Atherosclerotic heart disease of native coronary artery without angina pectoris; I10 Essential (primary) hypertension
CPT/HCPCS: 36415; 80061; 82550; 84450; 84460; 93306

== ENCOUNTER → 2023-02-06 | Outpatient (CLI) | payer MEDICARE, OTHER, SELFPAY ==
--- NOTE | 2023-02-06 07:24 | US_ITS ---
INDICATION: Hepatic cysts noted on echo COMPARISON: Chest CT 04/21/[address] 03/12/2020. FINDINGS: 84 grayscale ultrasound images of the right upper quadrant. PORTAL VEIN: Main portal vein is patent with appropriate directional flow. AORTA: Not well visualized. IVC: No obvious IVC filling defect. BILIARY SYSTEM: Significant intrahepatic and extrahepatic biliary ductal dilatation, with common bile duct measuring up to 1.4 cm in diameter. GALLBLADDER:?Absent gallbladder. LIVER: Unremarkable hepatic parenchyma. PANCREAS: Borderline pancreatic ductal dilatation measuring up to 0.3 cm. Visualized portions of the pancreas are unremarkable. KIDNEY: Right kidney is without shadowing nephrolith or hydronephrosis. No significant free fluid. US/Liver IMPRESSION: Significant intrahepatic and extrahepatic biliary ductal dilatation, with common bile duct measuring up to 1.4 cm in diameter. While this may simply represent postcholecystectomy state, biliary obstruction is not excluded. Borderline pancreatic ductal dilatation measuring up to 0.3 cm. This may be better evaluated with dedicated MRCP as degree of ductal dilatation was not definitely seen on previous examinations. Electronically Signed: Wojciech Cardenas MD at 2:35 EDT ,
== END | disposition home or self-care (01) ==
LOC: US 07:24
PROVIDERS: PCP Physician Assistant; Referring Provider Physician Assistant Medical; Visit Provider Physician Assistant Medical
DX: K76.89 Other specified diseases of liver (principal)
CPT/HCPCS: 76705

== ENCOUNTER → 2023-03-13 | Outpatient (CLI) | payer MEDICARE, OTHER, SELFPAY ==
--- NOTE | 2023-03-13 11:04 | MRI_ITS ---
Abdominal MRI and MRCP without contrast 03/13/2023 11:34 AM COMPARISON: None CLINICAL HISTORY: Dilated bile duct TECHNIQUE: Multiplanar and multisequence MR images of the abdomen were obtained with MRCP sequence. Three-dimensional post-processing reconstructions were performed. FINDINGS: Liver: Unremarkable Gallbladder: Surgically absent. Bile Ducts: Mild dilatation of the common bile duct measuring up to 9 mm as well as the central intrahepatic ducts.. No obstructing T2 dark stone, mass or stricture. Pancreas: No main pancreatic duct dilatation. Spleen: Unremarkable Adrenal Glands: Unremarkable Kidneys: Unremarkable GI Tract: Unremarkable Lymphadenopathy: Absent Ascites: Absent Bones: Fat-containing umbilical hernia. MRI/MRCP Abdomen without Contrast IMPRESSION: Mild dilatation of the CBD and central intrahepatic ducts most likely secondary to reservoir effect status post cholecystectomy. No obstructing stones, mass or stricture. Fat-containing umbilical hernia. Electronically Signed: Pasha Ren MD at 19:22 EST ,
== END | disposition home or self-care (01) ==
LOC: MRI 10:46
PROVIDERS: PCP Physician Assistant; Referring Provider Internal Medicine Gastroenterology; Visit Provider Internal Medicine Gastroenterology
DX: K83.8 Other specified diseases of biliary tract (principal)
CPT/HCPCS: 74181

== ENCOUNTER → 2023-08-07 | Outpatient (CLI) | payer MEDICARE, OTHER, SELFPAY | END | disposition home or self-care (01) | PROVIDERS: PCP Physician Assistant; Referring Provider Internal Medicine Cardiovascular Disease; Visit Provider Internal Medicine Cardiovascular Disease | DX: I47.29 Other ventricular tachycardia (principal); I49.5 Sick sinus syndrome; I48.91 Unspecified atrial fibrillation; R00.1 Bradycardia, unspecified | CPT/HCPCS: 93225; 93226 ==

== ENCOUNTER → 2023-08-18 | Outpatient (CLI) | payer MEDICARE, OTHER, SELFPAY ==
--- NOTE | 2023-08-18 13:50 | US_ITS ---
STUDY: ULTRASOUND OF THE FEMALE PELVIS - COMPLETE REASON FOR EXAM: Female, 73 years old. HX RECTAL CA LMP: Patient is postmenopausal. TECHNIQUE: Transabdominal and Transvaginal TECHNICAL QUALITY: Adequate. COMPARISON: None. FINDINGS: The uterus is anteverted and is in a midline position. The uterus measures 8.2 cm x 5 cm x 4.2 cm. Normal uterine cervix. The endometrium measures 3 mm in thickness, and is hyperechoic. There is no demonstrated endometrial mass. There is no demonstrated myometrial mass. I.U.D. - The patient does not have an I.U.D. The right ovary is visualized. The right ovary measures 4 cm x 3.8 cm x 3.5 cm. There is a 3.4 cm x 4.2 cm x 2.7 cm septated right ovarian cyst. There is no visualized right adnexal mass or complex lesion. There is normal arterial and normal venous vascularity. The left ovary is visualized. The left ovary measures 4.1 cm x 4.5 cm x 3.2 cm. There is no left ovarian cyst or ovarian mass. There is no visualized left adnexal mass or complex lesion. There is normal arterial and normal venous vascularity. There is no fluid in the cul-de-sac. US/Pelvic w/ Transvaginal IMPRESSION: Complex cyst in the right ovary. Clinical correlation recommended. Electronically Signed: Salo Bernabe MD at 15:15 EDT ,
== END | disposition home or self-care (01) ==
LOC: US 13:46
PROVIDERS: PCP Physician Assistant
DX: N94.89 Other specified conditions associated with female genital organs and menstrual cycle (principal); Z85.048 Personal history of other malignant neoplasm of rectum, rectosigmoid junction, and anus
CPT/HCPCS: 76830; 76856

== ENCOUNTER → 2024-01-15 | Outpatient (CLI) | payer MEDICARE, OTHER, SELFPAY ==
[2024-01-15 11:02] LABS: Hematocrit 39.9 % (37-47); Mean Corp Hgb Conc 32.6 g/dL (32-36); Mean Corpuscular Hgb 30.5 pg (27.0-32.0); Mean Corpuscular Volume 93.7 fL (81-99); Mean Platelet Vol. 9.2 fl (6.2-12.0); Platelet Count 184 K/mm3 (150-450); RBC Distribution Width CV 14.1 % (11.6-14.6); RBC Distribution Width SD 47.8 fl (35.1-43.9); Red Blood Count 4.26 M/mm3 (4.2-5.4); White Blood Count 4.9 K/mm3 (4.4-11.0)
[2024-01-15 11:48] LABS: ALB/GLOB Ratio 0.9 RATIO (0.9-2.4); AST(SGOT) 19 U/L (15-37); Alanine Aminotransfer ALT/SGPT 31 U/L (13-56); Albumin, Serum 3.5 g/dL (3.2-5.0); Alkaline Phosphatase 87 U/L (45-117); Anion Gap 6 (5-15); BUN 23 mg/dL (7-18); Calcium,Total 9.3 mg/dL (8.5-10.1); Chloride 106 mmol/L (98-107); Creatinine, Serum 0.82 mg/dL (0.55-1.02); EST Glomerular Filtration Rate 73 mL/min (>60); Est Glom Filt Rate - Afr Amer 88 mL/min (>60); Globulin 3.8 g/dL (2.2-4.2); Glucose 162 mg/dL (74-106); Protein, Total 7.3 g/dL (6.4-8.2); Sodium Level 141 mmol/L (136-145)
== END | disposition home or self-care (01) ==
LOC: LAB 10:37
PROVIDERS: PCP Physician Assistant; Referring Provider Internal Medicine Cardiovascular Disease; Visit Provider Internal Medicine Cardiovascular Disease
DX: E78.5 Hyperlipidemia, unspecified (principal); I25.10 Atherosclerotic heart disease of native coronary artery without angina pectoris; R53.83 Other fatigue; I10 Essential (primary) hypertension
CPT/HCPCS: 36415; 80053; 84443; 85027

== ENCOUNTER → 2024-08-02 | Outpatient (CLI) | payer MEDICARE, OTHER, SELFPAY ==
--- NOTE | 2024-08-02 12:54 | ECHOD_ITS ---
Reason For Study Reason For Study: CAD/ASHD Procedure This was a 2D Doppler, Color Flow transthoracic echocardiogram. Exam performed in department. Left Ventricle Normal LV size. Mild concentric left ventricular hypertrophy. The LV systolic function is normal. EF is 65 %. Stage 1 diastolic dysfunction. Right Ventricle Normal right ventricle. Atria The left atrium is mildly enlarged. Normal right atrium. Mitral Valve Trivial mitral valve insufficiency. Tricuspid Valve Trivial tricuspid valve insufficiency. Unable to estimate RV systolic pressure due to insufficient tricuspid regurgitant envelope. Aortic Valve Trisinus/trileaflet aortic valve. Pulmonic Valve The pulmonic valve is not well visualized. Great Vessels Mildly dilated aortic root. Pericardium/Pleural No pericardial effusion. MMode/2D Measurements & Calculations LVIDd: 4.8 cm IVSd: 1.2 cm LVOT diam: 2.0 cm LVIDs: 3.8 cm LVPWd: 1.1 cm LVOT area: 3.2 cm2 FS: 21.8 % Ao root diam: 3.7 cm LAV(MOD-bp): 51.6 ml LVAd ap4: 22.9 cm2 LAV(MOD-bp) Indexed: 25.4 ml/m2 LVLd ap4: 7.8 cm LAV(MOD-sp2): 48.5 ml EDV(MOD-sp4): 57.0 ml LAV(MOD-sp4): 54.4 ml EDV(sp4-el): 57.5 ml LVAs ap4: 14.9 cm2 LVLs ap4: 6.8 cm ESV(MOD-sp4): 29.9 ml ESV(sp4-el): 27.9 ml EF(MOD-sp4): 47.6 % EF(sp4-el): 51.5 % SV(MOD-sp4): 27.1 ml SV(sp4-el): 29.6 ml LA A4 area: 19.7 cm2 SI(MOD-sp4): 13.4 ml/m2 LA dimension(2D): 3.8 cm RA A4 area: 10.0 cm2 Time Measurements MV dec time: 0.23 sec Doppler Measurements & Calculations MV E max corbin: 98.8 cm/sec Lat Peak E' Corbin: 11.4 cm/sec Med Peak E' Corbin: 8.6 cm/sec MV A max corbin: 120.8 cm/sec E/E' lat: 8.7 E/E' med: 11.5 MV E/A: 0.82 MV V2 max: 128.9 cm/sec Ao V2 max: 150.2 cm/sec MV max P.6 mmHg MV dec slope: 421.8 cm/sec2 Ao max P.0 mmHg MV V2 mean: 82.5 cm/sec Ao V2 mean: 105.4 cm/sec MV mean P.0 mmHg Ao mean P.1 mmHg MV V2 VTI: 38.2 cm Ao V2 VTI: 35.7 cm AV (velocity ratio): 0.83 MVA(VTI): 2.4 cm2 KOKO(I,D): 2.6 cm2 KOKO(V,D): 2.3 cm2 LV V1 max: 109.6 cm/sec SV(LVOT): 93.2 ml PA V2 max: 75.2 cm/sec LV V1 max P.8 mmHg PA V2 mean: 54.7 cm/sec LV V1 mean P.1 mmHg LV V1 mean: 83.2 cm/sec LV V1 VTI: 29.5 cm ECHO/Echo Complete Interpretation Summary Mild concentric left ventricular hypertrophy. The LV systolic function is normal. EF is 65 %. Stage 1 diastolic dysfunction. The left atrium is mildly enlarged. Mildly dilated aortic root. Ordering Physician: Ceasar Combs Referring Physician: Ceasar Combs Performed By: Gianna Goodwin RCS
== END | disposition home or self-care (01) ==
LOC: CVS 12:54
PROVIDERS: PCP Physician Assistant; Referring Provider Internal Medicine Cardiovascular Disease; Visit Provider Internal Medicine Cardiovascular Disease
DX: I25.10 Atherosclerotic heart disease of native coronary artery without angina pectoris (principal); I47.29 Other ventricular tachycardia; I48.91 Unspecified atrial fibrillation; I34.0 Nonrheumatic mitral (valve) insufficiency
CPT/HCPCS: 93306

== ENCOUNTER → 2024-10-01 | Outpatient (CLI) | payer MEDICARE, OTHER, SELFPAY | END | disposition home or self-care (01) | LOC: LABSPEC 16:58 | PROVIDERS: PCP Physician Assistant; Referring Provider Urology; Visit Provider Urology | DX: N30.20 Other chronic cystitis without hematuria (principal) | CPT/HCPCS: 87077; 87086; 87088; 87186 ==

== ENCOUNTER → 2024-10-24 | Outpatient (CLI) | payer MEDICARE, OTHER, SELFPAY | END | disposition home or self-care (01) | LOC: LABSPEC 15:28 | PROVIDERS: PCP Physician Assistant; Referring Provider Urology; Visit Provider Urology | DX: N30.20 Other chronic cystitis without hematuria (principal) | CPT/HCPCS: 87077; 87086; 87088; 87186 ==

== ENCOUNTER 2025-02-06 05:22 | Day surgery (SDC) | payer MEDICARE, OTHER, SELFPAY ==
[2025-02-06] VITALS (8 sets, daily range): BP systolic 96–141; BP diastolic 64–80; PULSE 69–80; RESP 16–18; TEMP 36.3–36.9; O2SAT 93–100; BMI 41.6
[2025-02-06] MEDS: Lactated Ringers 1,000 ML 15 ML IV (06:05)
== END 2025-02-06 08:10 | disposition home or self-care (01) ==
LOC: EN 05:22 → AC 05:24
PROVIDERS: PCP Physician Assistant; Referring Provider Physician Assistant; Visit Provider Internal Medicine Gastroenterology
PROC: 0DJD8ZZ Inspection of Lower Intestinal Tract, Via Natural or Artificial Opening Endoscopic (ICD-10-PCS; CPT 45378; principal; 2025-02-06 06:25)
DX: Z12.11 Encounter for screening for malignant neoplasm of colon (principal); I48.91 Unspecified atrial fibrillation; E11.9 Type 2 diabetes mellitus without complications; Z85.048 Personal history of other malignant neoplasm of rectum, rectosigmoid junction, and anus; E78.00 Pure hypercholesterolemia, unspecified; K57.30 Diverticulosis of large intestine without perforation or abscess without bleeding; R15.9 Full incontinence of feces; I25.10 Atherosclerotic heart disease of native coronary artery without angina pectoris; I10 Essential (primary) hypertension; K63.5 Polyp of colon; G47.33 Obstructive sleep apnea (adult) (pediatric); Z99.89 Dependence on other enabling machines and devices; Z79.899 Other long term (current) drug therapy; Z79.85 Long-term (current) use of injectable non-insulin antidiabetic drugs; Z79.84 Long term (current) use of oral hypoglycemic drugs; E03.9 Hypothyroidism, unspecified; Z79.890 Hormone replacement therapy; Z79.82 Long term (current) use of aspirin; Z98.51 Tubal ligation status; Z90.49 Acquired absence of other specified parts of digestive tract; K59.00 Constipation, unspecified; D12.0 Benign neoplasm of cecum
CPT/HCPCS: 45385; 45380; 82962; 88305; C1889; J2405